=== PATIENT | female | born 1940 | race Caucasian/White ===

== ENCOUNTER → 2018-05-18 10:24 | Outpatient (CLI) | payer MEDICARE, OTHER, SELFPAY ==
[2018-05-18 12:44] LABS: Anion Gap 9 (5-15); BUN 23 mg/dL (7-18); BUN/Creat Ratio 23.7 RATIO (10-20); Calcium,Total 8.7 mg/dL (8.5-10.1); Chloride 98 mmol/L (98-107); Cholesterol 142 mg/dL (200); Creatinine, Serum 0.97 mg/dL (0.55-1.02); EST Glomerular Filtration Rate 59 mL/min (>60); Est Glom Filt Rate - Afr Amer 71 mL/min (>60); Glucose 83 mg/dL (74-106); High Density Lipoprotein 55 mg/dL; Potassium 4.7 mmol/L (3.5-5.1); Sodium Level 134 mmol/L (136-145); Triglycerides 67 mg/dL; Very Low Density Lipoprotein 13 mg/dL (5-40)
== END ==
PROVIDERS: Family Provider Family Medicine; PCP Family Medicine; Visit Provider Family Medicine
DX: I10 Essential (primary) hypertension (principal)
CPT/HCPCS: 36415; 80048; 80061

== ENCOUNTER → 2019-10-13 08:54 | Outpatient (CLI) | payer MEDICARE, OTHER, SELFPAY ==
[2017-06-27 18:35] VITALS: BMI 18.8
[2019-10-13 11:22] LABS: Hemoglobin A1c 5.7 % (4.2-6.3)
[2019-10-13 11:31] LABS: Anion Gap 7 (5-15); BUN 21 mg/dL (7-18); BUN/Creat Ratio 23.2 RATIO (10-20); Calcium,Total 8.3 mg/dL (8.5-10.1); Chloride 105 mmol/L (98-107); Cholesterol 141 mg/dL (200); Creatinine, Serum 0.91 mg/dL (0.55-1.02); EST Glomerular Filtration Rate 63 mL/min (>60); Est Glom Filt Rate - Afr Amer 77 mL/min (>60); Glucose 98 mg/dL (74-106); High Density Lipoprotein 53 mg/dL; Potassium 3.8 mmol/L (3.5-5.1); Sodium Level 139 mmol/L (136-145); Triglycerides 73 mg/dL
[2019-10-13 11:32] LABS: Very Low Density Lipoprotein 15 mg/dL (5-40)
== END ==
PROVIDERS: Family Provider Family Medicine; PCP Family Medicine; Visit Provider Family Medicine
DX: Z00.00 Encounter for general adult medical examination without abnormal findings (principal); I10 Essential (primary) hypertension
CPT/HCPCS: 36415; 80048; 80061; 83036

== ENCOUNTER → 2019-10-17 14:42 | Outpatient (CLI) | payer MEDICARE, OTHER, SELFPAY ==
[2017-06-27 18:35] VITALS: BMI 18.8
--- NOTE | 2019-10-17 14:49 | BI_ITS ---
MAMMOGRAPHY - BILATERAL SCREENING 3-D TOMOSYNTHESIS REASON FOR EXAM: Female, 79 years old. NO FAM HX PT GAINED 10LBS RT AXILLARY LYMPH NODES REMOVED 20-24 YRS AGO PERTINENT HISTORY: No significant family history. TECHNIQUE: 2-D mammograms and 3-D Tomosynthesis of the breast (s) were performed. CAD was performed. COMPARISON: August 31, 2015. FINDINGS: The breast composition is composed of scattered fibroglandular density. Scattered benign calcifications are seen. No dense spiculated masses or suspicious microcalcifications are identified. No architectural distortion is identified. There is no skin thickening or retraction. There are typically benign appearing vascular calcifications. The patient is status post right axillary lymph node dissection/biopsy. Multiple surgical clips are seen in this region without suspicious nodule, mass or pleomorphic calcifications. There has been no significant change since the prior study. BI/SCREEN MAMM (CAD) W/MARCELA BILAT IMPRESSION: No mammographic signs of malignancy. Routine yearly mammograms recommended. ASSESSMENT CATEGORY: BIRADS Category 2: Benign. A letter regarding these results will be sent to the patient by the facility within 30 days. FOLLOW UP RECOMMENDATION: Yearly follow up mammogram recommended. (A) Approximately 10% of breast cancers are not detected by mammography. A normal mammogram should not delay biopsy of a clinically suspicious abnormality. Electronically Signed: Aleksandr Mccauley MD at 9:33 EST , Service support ,
--- NOTE | 2019-10-17 15:09 | BD_ITS ---
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 COMPARISON: None. FINDINGS: Lumbar Spine (L1-L4): g/cm2 (0.977) / T-score (-1.6) / Z-score (0.2) Findings are suggestive of osteopenia with a moderate fracture risk. Left Femur Total: g/cm2 (0.766) / T-score (-1.9) / Z-score (0.1) Left Femoral Neck: g/cm2 (0.716) / T-score (-2.3) / Z-score (-0.1) Right Femur Total: g/cm2 (0.806) / T-score (-1.6) / Z-score (0.4) Right Femoral Neck: g/cm2 (0.786) / T-score (-1.8) / Z-score (0.4) BD/Dexa Bone Density Study IMPRESSION: The patient is considered osteopenic as outlined below according to World Sami Organization (WHO) criteria with a high fracture risk. Reference Information: The T-score is the number of standard deviations above or below the standard which is normal for young adults at their peak bone mineral density. The World Health Organization (WHO) interprets the T-scores as follows: Above -1 Normal bone density Between -1 and -2.5 Osteopenia Equal to / or below -2.5 Osteoporosis As a practical clinical guideline, osteopenia may be graded as follows: Mild -1 through -1.5 Moderate -1.6 through -2.0 Severe -2.1 through -2.4 The Z-score is the number of standard deviations above or below age-matched controls. A Z-score of less than -1.5 would be considered abnormal. References: 1. NIH Osteoporosis and Related Bone Diseases http://www.osteo.org 2. International Society for Clinical Densitometry http://www.iscd.org 3. National Osteoporosis Foundation http://www.nof.org Electronically Signed: Nima Slaughter, at 11:08 EST , Service support ,
== END ==
PROVIDERS: Family Provider Family Medicine; PCP Family Medicine; Referring Provider Family Medicine; Visit Provider Family Medicine
DX: Z12.31 Encounter for screening mammogram for malignant neoplasm of breast (principal); N95.9 Unspecified menopausal and perimenopausal disorder
CPT/HCPCS: 77063; 77067; 77080

== ENCOUNTER → 2020-08-26 11:11 | Outpatient (CLI) | payer MEDICARE, OTHER, SELFPAY ==
[2017-06-27 18:35] VITALS: BMI 18.8
[2020-08-26 15:16] LABS: Absolute Neutrophil Count 4.8 X10^3/uL (2.0-7.7); Basophil# 0.03 X10^3/uL; Basophil% 0.4 % (0-1); Eosinophil# 0.04 X10^3/uL; Eosinophils% 0.5 % (0-5); Hematocrit 38.5 % (37-47); Hemoglobin 12.1 g/dL (12.0-15.0); Lymphocyte % 27.8 % (19-41); Mean Corp Hgb Conc 31.4 g/dL (32-36); Mean Corpuscular Hgb 30.6 pg (27.0-32.0); Mean Corpuscular Volume 97.5 fL (81-99); Mean Platelet Vol. 11.5 fl (6.2-12.0); Monocyte# 0.85 X10^3/uL; Monocyte% 10.8 % (0-10); NRBC Flagged by Analyzer 0 % (0-5); Neutrophil # 4.77 X10^3/uL (2.7-7.7); Neutrophil % 60.4 % (47-70); Platelet Count 233 K/mm3 (150-450); RBC Distribution Width CV 13.3 % (11.6-14.6); RBC Distribution Width SD 47.9 fl (35.1-43.9); Red Blood Count 3.95 M/mm3 (4.2-5.4); White Blood Count 7.9 K/mm3 (4.4-11.0)
[2020-08-26 15:24] LABS: Anion Gap 5 (5-15); BUN 21 mg/dL (7-18); BUN/Creat Ratio 20.6 RATIO (10-20); Calcium,Total 6.8 mg/dL (8.5-10.1); Chloride 107 mmol/L (98-107); Cholesterol 152 mg/dL (200); Creatinine, Serum 1.02 mg/dL (0.55-1.02); EST Glomerular Filtration Rate 55 mL/min (>60); Est Glom Filt Rate - Afr Amer 67 mL/min (>60); Glucose 81 mg/dL (74-106); High Density Lipoprotein 58 mg/dL; Potassium 4.2 mmol/L (3.5-5.1); Sodium Level 141 mmol/L (136-145); Triglycerides 71 mg/dL; Very Low Density Lipoprotein 14 mg/dL (5-40)
== END ==
PROVIDERS: PCP Family Medicine; Referring Provider Family Medicine; Visit Provider Family Medicine
DX: I10 Essential (primary) hypertension (principal); M19.90 Unspecified osteoarthritis, unspecified site
CPT/HCPCS: 36415; 80048; 80061; 85025

== ENCOUNTER → 2020-10-30 16:55 | Outpatient (CLI) | payer MEDICARE, OTHER, SELFPAY ==
[2017-06-27 18:35] VITALS: BMI 18.8
--- NOTE | 2020-10-30 16:58 | RAD_ITS ---
STUDY: X-RAY - RIGHT KNEE REASON FOR EXAM: Right knee pain, no specific injury. TECHNIQUE: 4 view(s) of the knee. COMPARISON: None. FINDINGS: Normal visualized distal femur. Normal visualized proximal tibia and fibula. Normal proximal tibiofibular articulation. There is mild joint space narrowing of the medial femorotibial compartment. Normal lateral femorotibial compartment. Normal patellofemoral articulation. There is vascular calcification. RAD/Knee 4 or More Views IMPRESSION: Mild arthrosis of the medial femorotibial compartment. Electronically Signed: Leno Briones MD at 14:19 EST Tel , Service support ,
== END ==
PROVIDERS: PCP Family Medicine; Referring Provider Family Medicine; Visit Provider Family Medicine
DX: M25.561 Pain in right knee (principal)
CPT/HCPCS: 73564

== ENCOUNTER → 2020-11-27 13:16 | Outpatient (CLI) | payer MEDICARE, OTHER, SELFPAY ==
--- NOTE | 2020-11-27 13:24 | VDLE_ITS ---
Reason For Study: RLE PAIN RIGHT LEFT GSV is normal. CFV is compressible, spontaneous, phasic, CFV is compressible, spontaneous, phasic, competent, and demonstrates normal competent and demonstrates normal augmentation. augmentation. FV is compressible, spontaneous, phasic, competent and demonstrates normal augmentation. POP V is compressible, spontaneous, phasic, competent and demonstrates normal augmentation. T/P Trunk is compressible. PTV is compressible. RT PerV is compressible. Non-vascular structure in right pop fossa space measuring 3.45cm x 2.25cm. Procedure This is a venous duplex using B-mode, color flow and spectral Doppler. Exam performed in department. The exam was diagnostic. A preliminary report was called and/or faxed to Dr. Becerra @ [phone] @ 1:40 pm. Interpretation Summary Deep veins of the right lower extremity are patent and compressible segmentally. There is no evidence of right lower extremity deep vein thrombosis. Valvular competence appears intact within the proximal deep venous system on the right . The right great saphenous vein appears patent and compressible segmentally. A non-vascular structure is noted in the right popliteal space, measuring 3.45 cm x 2.25 cm. This probably represents a popliteal cyst. Clinical correlation is advised. Ordering Physician: Cleveland Becerra Referring Physician: Cleveland Becerra Performed By: France King, GRETTA, RVT
== END ==
PROVIDERS: PCP Family Medicine; Referring Provider Family Medicine; Visit Provider Family Medicine
DX: M79.661 Pain in right lower leg (principal)
CPT/HCPCS: 93971

== ENCOUNTER → 2021-07-11 | Outpatient (CLI) | payer MEDICARE, OTHER, SELFPAY | END | disposition home or self-care (01) | LOC: LABSPEC 15:20 | PROVIDERS: PCP Family Medicine; Referring Provider Family Medicine; Visit Provider Family Medicine | DX: N39.0 Urinary tract infection, site not specified (principal) | CPT/HCPCS: 87086; 87088; 87186 ==

== ENCOUNTER → 2021-08-01 15:00 | Outpatient (CLI) | payer MEDICARE, OTHER, SELFPAY ==
[2021-08-01 17:20] LABS: Absolute Lymphocyte Count 2.62 X10^3/uL (0.83-4.51); Absolute Neutrophil Count 4.5 X10^3/uL (2.0-7.7); Basophil# 0.03 X10^3/uL; Basophil% 0.4 % (0-1); Eosinophil# 0.05 X10^3/uL; Eosinophils% 0.6 % (0-5); Hematocrit 39.5 % (37-47); Hemoglobin 12.6 g/dL (12.0-15.0); Lymphocyte # 2.62 X10^3/ul (0.83-4.51); Lymphocyte % 33.2 % (19-41); Mean Corp Hgb Conc 31.9 g/dL (32-36); Mean Corpuscular Hgb 29.9 pg (27.0-32.0); Mean Corpuscular Volume 93.8 fL (81-99); Monocyte# 0.71 X10^3/uL; NRBC Flagged by Analyzer 0 % (0-5); Neutrophil # 4.46 X10^3/uL (2.7-7.7); Neutrophil % 56.5 % (47-70); Platelet Count 259 K/mm3 (150-450); RBC Distribution Width CV 13.2 % (11.6-14.6); RBC Distribution Width SD 45.3 fl (35.1-43.9); Red Blood Count 4.21 M/mm3 (4.2-5.4); White Blood Count 7.9 K/mm3 (4.4-11.0)
[2021-08-01 17:35] LABS: Anion Gap 8 (5-15); BUN 20 mg/dL (7-18); Calcium,Total 8.1 mg/dL (8.5-10.1); Chloride 98 mmol/L (98-107); Creatinine, Serum 1.11 mg/dL (0.55-1.02); EST Glomerular Filtration Rate 50 mL/min (>60); Est Glom Filt Rate - Afr Amer 61 mL/min (>60); Glucose 107 mg/dL (74-106); Potassium 4.3 mmol/L (3.5-5.1); Sodium Level 132 mmol/L (136-145)
== END ==
PROVIDERS: PCP Family Medicine; Referring Provider Family Medicine; Visit Provider Family Medicine
DX: Z01.818 Encounter for other preprocedural examination (principal)
CPT/HCPCS: 36415; 80048; 85025

== ENCOUNTER → 2021-08-19 07:12 | Outpatient (CLI) | payer MEDICARE, OTHER, SELFPAY ==
--- NOTE | 2021-08-19 07:19 | CT_ITS ---
STUDY: CT RIGHT LOWER EXTREMITY WITHOUT CONTRAST REASON FOR EXAM: Right knee osteoarthritis, surgical planning. TECHNIQUE: Transaxial CT imaging of the lower extremity was performed. Coronal and sagittal images were reformatted. Individualized dose optimization techniques were used for this CT. COMPARISON: None. FINDINGS: Knee: There are marginal osteophytes, mild subchondral cystic change of the medial tibial plateau and joint space narrowing of the medial femorotibial compartment (coronal reconstruction 26). There is a subchondral insufficiency fracture of the right medial femoral condyle (sagittal reconstructions 43-47). Normal lateral femoral condyle and lateral tibial plateau. There is preservation of the articular joint space of the lateral knee compartment. There is mild joint space narrowing of the lateral aspect of the patellofemoral compartment and subchondral cystic change of the lateral femoral trochlea (sagittal reconstruction 31). Normal proximal tibiofibular articulation. There is a small joint effusion. The quadriceps tendon is grossly normal. The patellar tendon is grossly normal. Normal Hoffa''s fat pad. There is a popliteal cyst containing small intra-articular bodies (sagittal reconstructions 41-44). There is vascular calcification. Hip: There is avascular necrosis of the right femoral head without demonstrated subchondral collapse (coronal reconstructions 57-63). Ankle: There is joint space narrowing of the talonavicular articulation (sagittal reconstruction 27). Normal tibiotalar, posterior subtalar and calcaneocuboid articulations. CT/Extremity Lower without Contra IMPRESSION: Right knee osteoarthritis with subchondral insufficiency fracture of the medial femoral condyle. Avascular necrosis of the right femoral head. Electronically Signed: Leno Briones MD at 14:46 EDT Tel , Service support ,
== END ==
PROVIDERS: PCP Family Medicine; Referring Provider Orthopaedic Surgery; Visit Provider Orthopaedic Surgery
DX: M21.161 Varus deformity, not elsewhere classified, right knee (principal); M17.11 Unilateral primary osteoarthritis, right knee
CPT/HCPCS: 73700

== ENCOUNTER 2021-09-01 12:17 | Observation (INO) | payer MEDICARE, OTHER, SELFPAY ==
[2021-08-19 08:19] LABS: International Normalized Ratio 1.1; Prothrombin Time (Protime)PT. 13.4 SECONDS (11.7-14.9)
[2021-08-19 08:20] LABS: Partial Thromboplast Time 31.4 Seconds (24.1-36.2)
[2021-08-19 08:34] LABS: AST(SGOT) 25 U/L (15-37); Alanine Aminotransfer ALT/SGPT 22 U/L (13-56); Albumin, Serum 3.4 g/dL (3.2-5.0); Alkaline Phosphatase 73 U/L (45-117); Bilirubin, Direct 0.19 mg/dL (0.00-0.30); Globulin 4.3 g/dL (2.2-4.2); Protein, Total 7.7 g/dL (6.4-8.2)
[2021-09-01] VITALS (14 sets, daily range): BP systolic 122–170; BP diastolic 53–89; PULSE 61–75; RESP 16–18; TEMP 36.2–36.6; O2SAT 95–100; BMI 26.9
[2021-09-01 08:50] LABS: Bedside Glucose 109 mg/dL (70-110)
[2021-09-01] MEDS: Gabapentin 600 MG Tablet PO (09:28)
[2021-09-01] MEDS: Acetaminophen 500 MG Tablet 1000 MG PO ×2 (09:28→17:01)
[2021-09-01] MEDS: Lactated Ringers 1,000 ML 15 ML IV (09:31)
--- NOTE | 2021-09-01 10:08 | RAD_ITS ---
STUDY: X-RAY - RIGHT KNEE REASON FOR EXAM: Female, 81 years old. Post op -- AP and Lateral xray of operative knee in PACU TECHNIQUE: 2 view(s) of the knee. COMPARISON: Comparison is made with prior study of 10/30/2020. FINDINGS: Normal visualized distal femur. Normal visualized proximal tibia and fibula. Normal proximal tibiofibular articulation. The patient is status post total knee replacement. There is good alignment. Postoperative soft tissue changes. RAD/Knee 1 or 2 Views IMPRESSION: Status post right total knee replacement. There is good alignment. Postoperative soft tissue changes. Electronically Signed: Nima Slaughter MD at 13:25 EST , Service support ,
[2021-09-01] MEDS: Joint Pain Solution (NO MORPHINE) 1 ML IV (10:30)
--- NOTE | 2021-09-01 10:30 | KNEE_PTH ---
PATIENT: AKIL KENNEY LOC: MS2 U#:[id number] AGE/SX: 81/F ROOM: MS206 RE09/01/[address]: Dr. Chidi Kam DO : 1940 BED: 1 DIS: 09/02/2021 SPEC #: [id number] RECD: 09/01/21 14:13 STATUS: GULSHAN RERegis #: [id number] CARISA: 09/01/21 10:[address]: Chidi Kam DEPT: SURGICAL PATHOLOGY RECD BY: Moriah Clark ENTERED: 09/02/21 07:38 SP TYPE: TOTAL KNEE OTHR DR: MD Dr. Cleveland Downs MD Tissues: Knee, NOS Procedures: Decalcification bone/plaque Surgery Specimen Level IV HEADER OPERATION: ERAS, right total knee replacement robotic arm assist PRE-OP DIAGNOSIS: Varus deformity right knee, other deformity of patella right knee TISSUE SUBMITTED: Bone and soft tissue right knee MICROSCOPIC DIAGNOSIS Bone and tissue of right knee, total knee resection: Degenerative joint disease. AM:jai 09/05/2021 MICROSCOPIC DESCRIPTION Slides are reviewed. GROSS DESCRIPTION Received is one container designated bone and soft tissue right knee. The specimen consists of multiple fragments of kendrick-yellow bone measuring in aggregate 9 x 7 x 3 cm. A small piece of cartilaginous tissue is noted attached to one piece of bone measuring 3.5 x 0.5 x 0.2 cm. A number of bony fragments contain articular surfaces consistent with tibial plateau and femoral condyle and displaying prominent osteophyte formation, eburnation, and bone erosion. Sprayer Machine sections are submitted in two cassettes as follows: 1 ? cartilaginous tissue, 2 - bone after decalcification. / SJ:jai 09/02/21 TC:5 [facility]: [id number]
[2021-09-01] MEDS: Cefazolin 2 GM in 0.9% Normal Saline 100 ML IV (10:38)
[2021-09-01] MEDS: Betamethasone/Betamethasone 30 MG/5 ML Vial (11:07)
[2021-09-01] MEDS: Lidocaine 1% (20 ml mdv) 20 ML Vial (11:08)
--- NOTE | 2021-09-01 12:02 | PCM.OPRPT ---
Report of Operation Date of Procedure: 09/01/21 Pre-Operative Diagnosis: OA right knee Post-Operative Diagnosis: same Surgery/Procedure Performed:: Right TKR Description of Surgical Findings:: Report of Operation Date of Procedure: 09/01/21 Preoperative Diagnosis: [right ] knee primary osteoarthritis Postoperative Diagnosis: [right ] knee primary osteoarthritis Operation: Robotic Assisted Knee Total Arthroplasty, [ right ] knee Surgeon: Dr Chidi Kam DO Drill Instructor: Bhanu Bledsoe PA-C Anesthesia: spinal Anesthesiologist: Balbir Sellers M.D. Findings: Stable knee with good patella tracking Specimen(s): Bony cuts Complications: No intraoperative complications Estimated Blood Loss: 20 cc IV Fluids: 1000 cc crystalloid Implants Used: 1. Gage Triathlon cemented CR size 2 femur 2. Gage Triathlon size 2 tibia 3. 29 mm patella 4. 9 mm CS polyethylene Brief History Operative Indications: [ (81 y/o female) ] with history of [right ] knee osteoarthrosis with radiographic findings with loss of joint space, osteophyte formation and subchondral sclerosis. Failed conservative measures as mentioned in the H&P. Discussion of total knee arthroplasty as well as risk and benefits were discussed with the patient including but not limited to blood loss, DVTs, PEs, neurovascular damage, general risk of anesthesia including loss of life, and stiffness or instability were also discussed with the patient. Patient demonstrated understanding and was able to sign informed consent. Procedure: On the date of procedure, patient's [ right ] lower extremity was marked in the preoperative area. The patient was then taken back to the operating room where that patient was placed on the table in the supine position. All bony prominences were identified and well-padded. Anesthesia assumed control of the C-spine and airway throughout the remainder of the procedure. A tourniquet was placed on the [right ] upper thigh and the leg was prepped in a sterile fashion. The surgeon then scrubbed at this time. Upon reentering the room, the [ right ] lower extremity was draped in a standard orthopedic fashion. A timeout was then called and everyone agreed upon the side, the site, the procedure to be performed, patient's identity and antibiotics given. Esmarch bandage was used to exsanguinate the extremity and the tourniquet was placed up to 250 mmHg with the knee in flexion. A midline skin incision was made and a sharp dissection was taken down through skin, subcutaneous tissue and fat. The standard medial parapatellar incision was made and the patella was subluxed laterally. An appropriate deep MCL release was done and the fat pad was resected. Our attention was then directed to the patella. The patella was everted and a flat resection was made. The knee was then flexed up and 2 femoral pins were placed inside the incision and 2 tibial pins were placed outside the incision in the medial tibia bicortically. Once this was completed, the 2 checkpoints in the femur and tibia were placed. Knee was then flexed up and the bony landmarks were registered. Once the was completed, the knee taken through range of motion and manually stressed allowing us to plan for an appropriate tibial cut. The robotic arm was brought into the field sterilely and checkpoint and saw were registered. Based on the patient's deformity, the tibial cut was made in [ 2 degrees varus ]. At this time, the tensioner was then placed in the joint and ligament tension was checked at 90 degrees and full extension. Based on the patient's ligamentous tension, appropriate adjustments were made to the operative plan and ligament releases were done. Once we were happy with our operative plan with balanced flexion and extension gaps, our attention was directed to the femur. The robot was brought into the field sterilely and registered. Posterior condylar cuts, anterior chamfer cuts and anterior cuts were appropriately made for a [size 2 ] femur. When these were completed, the saws were switched out in the distal femoral and posterior chamfer cuts were made. Protecting the soft tissue throughout this time. A [size 2 ] base plate was selected. The knee was flexed to 90 degrees and soft tissues and posterior osteophytes were removed from the joint. 40 cc of the periarticular injection was injected into the posterior medial corner of the joint. The appropriate trials were then placed on the femur and tibia. A trial polyethylene was trialed to ensure proper balancing and stability of the knee. The appropriate tibial internal rotation was then marked with a bovie. Our attention was then directed to the patella. The lug holes were drilled and the patella trial was placed. Patellar tracking was checked and deemed appropriate. Once we were happy, lug holes were drilled for the femur and trial components were removed. The tibia was subluxed and pinned into place and the keel was punched and drilled appropriately. Final components were verified and opened. The wound was copiously irrigated with normal saline. Cement was mixed under 3rd generation techniques and the applied in sequence to the tibia, femur and patella. The components were impacted into place with the tibia, femur and finally the patella. The trial poly component was placed and the knee was placed in full extension. Excess cement was removed with curettes and the cement was allowed to harden. The tracking, alignment and balance were verified and a [9 mm CS ] polyethylene component was placed. Once the final components were placed an Irrisept lavage was performed and the wound was copiously irrigated with normal saline solution and the periarticular injection was given. the wound was closed in a layer-carpenter fashion using #1 vicryl interrupted sutures for the arthrotomy, 2-0 interrupted vicryl suture for the subcuticular layer and deo for final skin closure. A sterile compressive dressing was then placed. Under sterile conditions, the left knee was injected with 4 cc of 1 % Lidocaine and 2 cc of Celestone Soluspan. The patient was then awakened from anesthesia, transferred to the [facility] and transferred to the PACU for recovery. My physician miller head assistant wet process was a vital part of this case. He was important in appropriate retraction during the case, and protection of soft tissues during bony cuts. His intimate knowledge of the case and my steps aided in safe and expedient completion of the procedure as well as appropriate position of the leg during the case. He was also vital in assisting with closure under my direct supervision. Due to the complexity of this case, robotic arm was used to assist in the surgery to improve accuracy and clinical outcomes. Post-op Plan: DVT ppx; ASA 81 mg BID, thigh high compression stockings Follow up: in office in 2 weeks for wound check PT: to start POD #0 at hospital, outpatient PT should be arranged. Preoperative antibiotic: Ancef 2 grams IV Chidi Kam DO Surgeon: Chidi Kam adoption manager: Bhanu Bledsoe Type of Anesthesia: Spinal Anesthesiologist: Balbir Sellers Estimated Blood Loss (mL): 20 cc Fluids Replaced: 1000 cc crystalloid Admit VTE Documentation VTE Present on Admission: No VTE Mechan Device Prophylaxis: SCD's and Thigh High PARISH Hose VTE Pharm Prophylaxis ordered?: Yes
[2021-09-01] MEDS: Lactated Ringers 1,000 ML 125 ML IV ×2 (13:05→17:20)
[2021-09-01] MEDS: Ketorolac 15 MG/ML Vial IV (17:18)
[2021-09-01] MEDS: Aspirin 81 MG TAB.CHEW PO (22:42)
[2021-09-01] MEDS: Senna/Docusate Sodium 1 Tablet 2 TABLET PO (22:42)
[2021-09-01] MEDS: clonazePAM 0.5 MG Tablet PO (22:42)
[2021-09-02] MEDS: Zolpidem Tartrate 5 MG Tablet PO (00:04)
[2021-09-02] MEDS: Mirtazapine 15 MG Tablet PO (00:04)
[2021-09-02] MEDS: Acetaminophen 500 MG Tablet 1000 MG PO ×2 (00:42→09:32)
--- NOTE | 2021-09-02 01:01 | PCS.PANDOC ---
PANDEMIC DOCUMENTATION INITIATED: Date: 09/01/2021 Time: 190
[2021-09-02 06:18] VITALS: BP 167/61; PULSE 62; RESP 18; TEMP 36.6; O2SAT 96
[2021-09-02] MEDS: oxyCODONE 5 MG Tablet 2.5 MG PO (06:19)
[2021-09-02 06:40] VITALS: O2SAT 94
[2021-09-02 07:16] LABS: Hematocrit 33.6 % (37-47); Hemoglobin 11.3 g/dL (12.0-15.0); Mean Corp Hgb Conc 33.6 g/dL (32-36); Mean Corpuscular Volume 92.1 fL (81-99); Mean Platelet Vol. 10.8 fl (6.2-12.0); Platelet Count 254 K/mm3 (150-450); RBC Distribution Width CV 13.5 % (11.6-14.6); RBC Distribution Width SD 45.8 fl (35.1-43.9); Red Blood Count 3.65 M/mm3 (4.2-5.4); White Blood Count 13.7 K/mm3 (4.4-11.0)
--- NOTE | 2021-09-02 07:46 | PCM.PN.ORT ---
Subjective Subjective Patient laying in bed sleeping. Patient easy to wake. Patient states her pain is been very well managed. Patient has no other complaints at this time. Patient states she is request to go to TCU for her postop rehab. patient denies chest pain, shortness of breath, calf pain, nausea vomiting. Objective Data Objective Data Vital Signs: Vital Signs Temp Pulse Resp BP Pulse Ox 97.9 F 62 18 167/61 H 94 09/02/21 06:18 09/02/21 06:18 09/02/21 06:18 09/02/21 06:18 09/02/21 06:40 Oxygen Flow Rate (L/min) 2 Oxygen Delivery Method Room Air Weight: 71.1 kg Body Mass Index (BMI) 26.9 Intake & Output: Intake and Output for Last 24 Hours 08/31/21 09/01/21 09/02/21 23:59 23:59 23:59 Intake Total 1184.5 / 1184.5 2082. / 2082.25 Output Total 700 / 700 Balance 484.5 / 484.5 2082. / 2082.25 Lab / Micro Data Result Diagrams: 09/02/21 06:56 09/02/21 06:56 Labs: Laboratory Results - last 24 hr 09/01/21 08:44: POC Glucose 109 09/02/21 06:56: WBC 13.7 H, RBC 3.65 L, Hgb 11.3 L, Hct 33.6 L, MCV 92.1, MCH 31.0, MCHC 33.6, RDW Std Deviation 45.8 H, RDW Coeff of Sally 13.5, Plt Count 254, MPV 10.8 Micro: Microbiology 08/19/21 07:15 Swab (Method) Nasal Screen MRSA/MSSA - Final Radiography Diagnostic Testing: Radiology Impression Knee X-Ray 09/01/21 10:08 IMPRESSION: Status post right total knee replacement. There is good alignment. Postoperative soft tissue changes. Electronically Signed: Nima Slaughter MD at 13:25 EST , Service support , Physical Exam Narrative Patient laying comfortably in bed sleeping. Patient was easy to awake and alert and appropriate. Patient no respiratory distress, speaking in full sentences. Patient had no calf tenderness. No signs of symptoms of DVT. Patient vital signs and labs reviewed noted. Patient's dressing is clean dry intact. Neurovascular she is otherwise intact. Const alert and oriented x3 Eyes PERRL Neuro CN's II-XII intact bilaterally Psych mental status grossly normal and affect normal Assessment & Plan Assessment/Plan (1) Status post total right knee replacement using cement: PLAN: 1. Continue all pain medications as prescribed 2. 81 mg aspirin 1 p.o. every 12 hours x30 days for postop DVT prophylaxis 3. Physical therapy, weight-bear as tolerated with walker 4. Encourage incentive spirometry 5. Patient to TCU when cleared by insurance 6. Continue standard postop total knee arthroplasty protocol
[2021-09-02 08:06] LABS: Anion Gap 7 (5-15); BUN 13 mg/dL (7-18); BUN/Creat Ratio 22.6 RATIO (10-20); Chloride 104 mmol/L (98-107); Creatinine, Serum 0.57 mg/dL (0.55-1.02); EST Glomerular Filtration Rate 107 mL/min (>60); Est Glom Filt Rate - Afr Amer 129 mL/min (>60); Estimated Creatinine Clearance 37.45 ml/min; Glucose 152 mg/dL (74-106); Potassium 3.8 mmol/L (3.5-5.1); Sodium Level 135 mmol/L (136-145)
[2021-09-02] MEDS: Senna/Docusate Sodium 1 Tablet 2 TABLET PO (09:30)
[2021-09-02] MEDS: Citalopram 10 MG Tablet PO (09:32)
[2021-09-02] MEDS: Clopidogrel Bisulfate 75 MG Tablet PO (09:33)
[2021-09-02] MEDS: Pantoprazole Sodium 20 MG Tablet PO (09:33)
[2021-09-02] MEDS: Aspirin 81 MG TAB.CHEW PO (09:33)
[2021-09-02] MEDS: clonazePAM 0.5 MG Tablet PO (09:36)
[2021-09-02 09:40] VITALS: BP 153/55; PULSE 64; RESP 18; TEMP 36.6; O2SAT 96
--- NOTE | 2021-09-02 09:40 | CASEMGMT ---
RN DIONNE RESEARCH PROGRAM ASSISTANT CM to room to meet with patient for initial transition planning/care coordination assessment. RN DIONNE introduced self and role at [facility]. Pt voices understanding and consents to assessment at this time. Pt resting in bed in no distress at this time. Pt is A/O at this time and answers all questions appropriately. Care providers, pharmacy, and demographics verified/updated at this time. PCP: Dr Becerra Specialists:Dr Kam Preferred Pharmacy:[facility] Insurance: KELLY [employer] Prescription Benefit: Yes Living Will/HPOA: Has LW and HPOA, who is her daughters Lucero Layne and Angela Baig LNOK: 4 adult children. Dtr's Angela and Lucero are POA Living Arrangements: Lives alone in [facility]. Dtr and son-in-law, Angela and Gianna Baig are POA. Transportation: Pt, family HHC/SNF: Pt states would like to go to TCU. She was provided with list of SNF providers including quality and resource use data and consistent with the patient's preferred geographic region, medical needs, and insurance network. The pt's states still prefers TCU. EDUARDO, Suzanne, aware. PLAN: TCU Luciano MCCARTHY RN, CM
--- NOTE | 2021-09-02 10:12 | CASEMGMT ---
Addendum entered by Suzanne Wu 09/02/21 10:30: SW spoke w/Steve Bledsoe, pt will be ready for discharge today, he is to complete the necessary paperwork in order for pt to be discharged to TCU today. LUCÍA Lewis Original Note: TCU will have a bed for pt today. ALICE LewisS
--- NOTE | 2021-09-02 10:18 | NURSING ---
Pt states she did not think the doctor did not want her to have plavix. Steve Felicia informed and said to go ahead and give plavix.
--- NOTE | 2021-09-02 12:23 | CASEMGMT ---
Addendum entered by Suzanne Wu 09/02/21 15:02: COVID results back, pt is negative. LUCÍA Lewis Original Note: All discharge paperwork has been faxed to TCU in anticipation of pt going to TCU today. SW spoke w/daughter and pt in room, let them know pt should be able to go to TCU today, once the COVID results are back. Plan: TCU, Skilled level of care, Convalescent stay LUCÍA Lewis
[2021-09-02 15:12] VITALS: BP 146/51; PULSE 56; RESP 16; TEMP 36.4; O2SAT 99
== END 2021-09-02 15:15 | disposition skilled nursing facility (03) ==
LOC: SDC 09-02 08:30 → MS2 09-02 08:30
PROVIDERS: Anesthesiology; Admitting Provider Orthopaedic Surgery; PCP Family Medicine; Referring Provider Orthopaedic Surgery; Visit Provider Orthopaedic Surgery
PROC: 0SRC0JZ Replacement of Right Knee Joint with Synthetic Substitute, Open Approach (ICD-10-PCS; CPT 27447; principal; 2021-09-01 10:00)
DX: M17.11 Unilateral primary osteoarthritis, right knee (principal); F32.A Depression, unspecified; M32.9 Systemic lupus erythematosus, unspecified; M21.161 Varus deformity, not elsewhere classified, right knee; M22.8X1 Other disorders of patella, right knee; E66.9 Obesity, unspecified; Z79.899 Other long term (current) drug therapy; Z79.02 Long term (current) use of antithrombotics/antiplatelets; Z86.718 Personal history of other venous thrombosis and embolism; Z68.27 Body mass index [BMI] 27.0-27.9, adult
CPT/HCPCS: 01402; 27447; 64447; S2900; 36415; 73560; 80048; 80076; 82962; 85027; 85610; 85730; 87081; 87426; 88305; 88311; 96361; 96374; 97110; 97162; 97166; 97530; 99218; 99251; C1776; J7120; G0378; G0463; J0702; J2405

== ENCOUNTER 2021-09-02 15:40 | Inpatient (IN) | payer MEDICARE, OTHER, SELFPAY ==
[2021-09-02 16:00] VITALS: BP 146/55; PULSE 60; RESP 16; TEMP 36.9; O2SAT 98
[2021-09-02 16:02] VITALS: BP 146/55; PULSE 60; RESP 16; TEMP 36.9; O2SAT 98
[2021-09-02 16:03] VITALS: BMI 25.7
[2021-09-02] MEDS: Aspirin 81 MG TAB.CHEW PO (18:01)
[2021-09-02] MEDS: clonazePAM 0.5 MG Tablet PO (18:01)
[2021-09-02 18:04] VITALS: PULSE 60; RESP 16; O2SAT 98
--- NOTE | 2021-09-02 19:59 | HP.PCM_ITS ---
HPI - General General Date of Admission: 09/02/21 HPI Narrative 09/01/2021 AKIL KENNEY, is a 81 Female who presents with followin09/01/2021 Dr. Kam performed robot assisted right total knee arthroplasty. 09/02/2021 Pain controlled. Aspirin 81mg twice daily x 30 days for DVT prophylaxis. 09/02/2021 Admit to TCU with debility, here for rehabilitation, strengthening, prior to discharge home alone. [facility] Medical History (Updated 09/02/21 @ 20:[address] Nicolas Bajwa MD) Ambulates with cane Depression Gastric reflux History of echocardiogram History of rectocele History of stress test Lupus Non-smoker Wears dentures Wears glasses Wears hearing aid Home Medications citalopram 10 mg PO DAILY 06/04/17 [History Last Taken Unknown] clonazepam 0.5 mg PO BID 06/04/17 [History Last Taken Unknown] clopidogrel 75 mg PO DAILY 06/04/17 [History Last Taken Unknown] fluticasone propionate [Allergy Relief (fluticasone)] 2 spray NS BID 06/04/17 [History Last Taken Unknown] hydroxychloroquine 300 mg PO DAILYCM 06/04/17 [History Last Taken Unknown] mirtazapine [Remeron SolTab] 15 mg PO QHS 06/04/17 [History Last Taken Unknown] Acidophilus 1 ea PO BID 06/27/17 [History Last Taken Unknown] acetaminophen [Tylenol Extra Strength] 1,000 mg PO Q8H PRN PRN 06/27/17 [History Last Taken Unknown] omeprazole 20 mg PO DAILY 06/27/17 [History Last Taken Unknown] zolpidem 5 mg PO QHS 06/27/17 [History Last Taken Unknown] aspirin 81 mg PO BID 09/02/21 [History Last Taken Unknown] oxycodone 2.5 mg PO Q4H PRN PRN 7 Days #42 tab 09/02/21 [Rx Last Taken Unknown] Allergy/AdvReac Type Severity Reaction Status Date / Time codeine AdvReac Other Verified 09/01/21 09:21 morphine AdvReac Other Verified 09/01/21 09:21 Surgical History (Updated 09/02/21 @ 20:[address] Nicolas Bajwa MD) History of cholecystectomy History of colonoscopy History of coronary artery stent placement History of hysterectomy History of splenectomy Social History (Updated 09/02/21 @ 20:[address] Nicolas Bajwa MD) household members: none Smoking Status: Never smoker alcohol intake: never substance use type: does not use ROS Constitutional Constitutional: Denies chills, fever(s) or weight gain ENT HEENT: Denies headache(s), nasal congestion or nasal discharge Cardiovascular Cardiovascular: Denies chest pain or palpitations Respiratory/Chest Respiratory/Chest: Denies cough, excessive phlegm production or shortness of breath with exertion Gastrointestinal Gastrointestinal: Denies abdominal pain, nausea or vomiting Genitourinary Genitourinary: Denies dysuria Musculoskeletal Musculoskeletal: Denies joint pain or joint swelling Integumentary Integumentary: Denies rash or wounds Neurologic Neurologic: Denies focal weakness, numbness or tingling Psychiatric Psychiatric: Denies anxiety, depression, homicidal ideation or suicidal ideation Vital Signs Vital Signs Vital Signs: 09/02/21 16:00 09/02/21 16:02 09/02/21 18:04 Temperature 98.5 F 98.5 F Temperature Source Temporal Temporal Pulse Rate 60 60 60 Pulse Rhythm Regular Pulse Strength Normal (2+) Respiratory Rate 16 16 16 Respiratory Effort Normal Non-Labored Respiratory Depth Normal Respiratory Pattern Normal Blood Pressure 146/55 H 146/55 H Blood Pressure Mean 85 85 Blood Pressure Source Monitor Monitor Blood Pressure Position Sitting Semi-Fowlers Blood Pressure Location Right Arm Right Arm Pulse Ox 98 98 98 Oxygen Delivery Method Room Air Room Air Room Air Weight Weight: 68.039 kg Body Mass Index (BMI) 25.7 Physical Exam Const alert and oriented x3 General Appearance: cooperative HEENT normocephalic Eyes PERRL and EOMs intact bilaterally Neck supple, no JVD and no carotid bruits Resp normal respiratory effort, normal air movement and clear to auscultation bilaterally Cardio regular rate and regular rhythm GI normal to inspection, nondistended, normoactive bowel sounds, non-tender and non-distended Extremity normal capillary refill General Extremity: Negative for edema Skin no rashes or lesions noted General Skin Exam: no breakdown Psych affect normal Appearance: appropriate Assessment & Plan Assessment/Plan (1) Debility: (2) Status post total right knee replacement using cement: (3) Anxiety: (4) Depression: (5) Gastroesophageal reflux disease: (6) Insomnia: (7) Systemic lupus erythematosus: (8) Coronary artery disease: PLAN: 81 year old female with below past medical history hospitalized for right total knee replacement 09/01/[address] Kam, admitted to TCU with debility, here for rehabilitation, strengthening, prior to discharge home alone. * Debility - PT/OT. * Pain - Tylenol 1000mg q6h prn pain (1-3), Oxycodone 2.5mg q4h prn pain (4-10). * Bowel - Miralax 17gm daily, Senna/colace 1 tablet twice daily, Dulcolax 10mg daily prn. * Adult immunization - Administer prevnar 13, pneumovax 23, fluzone, covid19 vaccine as appropriate. * DVT prophylaxis - Aspirin 81mg twice daily thru 10/01/2021. * Coronary artery disease - Plavix 75mg daily, Aspirin 81mg daily starting 10/02/2021. * Depression - Citalopram 10mg daily, stable chronic intermediate use, GDR not recommended. * Anxiety - Clonazepam 0.5mg twice daily, stable chronic intermodal customer service use, GDR not recommended. * Allergic rhinitis - Flonase 2 sprays nasal daily. * Systemic lupus - Plaquenil 300mg daily. * GI prophyalxis - Lactobacillus 1 tablet twice daily. * Appetite loss - Mirtazapine 15mg qhs, stable chronic intermediate use, GDR not recommended. * GERD - Pantoprazole 20mg daily. * Insomnia - Zolpidem 5mg qhs, stable chronic intermodal customer service use, GDR not recommended.
[2021-09-02] MEDS: oxyCODONE 5 MG Tablet 2.5 MG PO (20:13)
[2021-09-02] MEDS: Acetaminophen 500 MG Tablet 1000 MG PO (22:17)
[2021-09-02] MEDS: Zolpidem Tartrate 5 MG Tablet PO (22:17)
[2021-09-02] MEDS: Mirtazapine 15 MG Tablet PO (22:17)
[2021-09-02] MEDS: Senna/Docusate Sodium 1 Tablet PO (22:18)
[2021-09-03] MEDS: oxyCODONE 5 MG Tablet 2.5 MG PO ×2 (00:57→05:16)
[2021-09-03] MEDS: clonazePAM 0.5 MG Tablet PO ×2 (05:16→16:57)
[2021-09-03] MEDS: Senna/Docusate Sodium 1 Tablet PO ×2 (05:17→16:51)
[2021-09-03] MEDS: Citalopram 10 MG Tablet PO (05:17)
[2021-09-03] MEDS: Polyethylene Glycol 3350 17 GM PACKET PO (05:17)
[2021-09-03] MEDS: Clopidogrel Bisulfate 75 MG Tablet PO (05:17)
[2021-09-03] MEDS: Pantoprazole Sodium 20 MG Tablet PO (05:17)
[2021-09-03] MEDS: Fluticasone 0.05% 1 SPRAY NASAL.SRY 2 SPRAY NASAL (05:19)
[2021-09-03 06:05] LABS: Absolute Lymphocyte Count 1.89 X10^3/uL (0.83-4.51); Absolute Neutrophil Count 11.3 X10^3/uL (2.0-7.7); Basophil# 0.01 X10^3/uL; Basophil% 0.1 % (0-1); Hematocrit 30.2 % (37-47); Hemoglobin 10.1 g/dL (12.0-15.0); Lymphocyte # 1.89 X10^3/ul (0.83-4.51); Lymphocyte % 12.5 % (19-41); Mean Corp Hgb Conc 33.4 g/dL (32-36); Mean Corpuscular Hgb 30.2 pg (27.0-32.0); Mean Corpuscular Volume 90.4 fL (81-99); Mean Platelet Vol. 11.1 fl (6.2-12.0); Monocyte# 1.83 X10^3/uL; Monocyte% 12.1 % (0-10); NRBC Flagged by Analyzer 0 % (0-5); Neutrophil # 11.33 X10^3/uL (2.7-7.7); POSITIVE DIFFERENTIAL YES; Platelet Count 221 K/mm3 (150-450); RBC Distribution Width CV 13.4 % (11.6-14.6); RBC Distribution Width SD 44.8 fl (35.1-43.9); Red Blood Count 3.34 M/mm3 (4.2-5.4); White Blood Count 15.1 K/mm3 (4.4-11.0)
[2021-09-03 06:21] LABS: Differential Indicated SCAN CRITERIA MET
[2021-09-03 06:40] LABS: Anion Gap 8 (5-15); BUN 25 mg/dL (7-18); BUN/Creat Ratio 38.3 RATIO (10-20); Calcium,Total 6.8 mg/dL (8.5-10.1); Chloride 96 mmol/L (98-107); Creatinine, Serum 0.65 mg/dL (0.55-1.02); EST Glomerular Filtration Rate 92 mL/min (>60); Est Glom Filt Rate - Afr Amer 112 mL/min (>60); Estimated Creatinine Clearance 37.45 ml/min; Glucose 131 mg/dL (74-106); Potassium 4.2 mmol/L (3.5-5.1); Sodium Level 127 mmol/L (136-145)
[2021-09-03 06:52] LABS: Differential Comment SCANNED
[2021-09-03] MEDS: Aspirin 81 MG TAB.CHEW PO ×2 (07:58→16:51)
[2021-09-03] MEDS: Hydroxychloroquine 200 MG Tablet 300 MG PO (07:59)
[2021-09-03] MEDS: oxyCODONE 5 MG Tablet PO ×3 (10:46→22:06)
[2021-09-03] MEDS: Acetaminophen 500 MG Tablet 1000 MG PO (10:46)
[2021-09-03] MEDS: Tuberculin,Purif.prot.deriv. 50 TU/ML Vial 0.1 ML ID (10:48)
--- NOTE | 2021-09-03 11:04 | NURSING ---
Painful with Rt knee. Polar care in place. Medicated with tylenol and Oxyir. Surgical mepilex peeled back at this time and incision noted to be well approximated. Small amount of bleeding noted in some areas. No redness or warmth. Swollen and bruising noted. Will continue to monitor.
[2021-09-03 14:15] LABS: Pathologist Review Reviewed
--- NOTE | 2021-09-03 14:42 | PHA.CONS_ITS ---
Progress Note - Pharmacy Subjective: TCU Admission Objective: Allergies codeine Adverse Reaction (Verified 09/01/21 09:21) Other morphine Adverse Reaction (Verified 09/01/21 09:21) Other Current Medications Generic Name Dose Route Start Last Admin Trade Name Freq PRN Reason Stop Dose Admin Acetaminophen 1,000 mg 09/02/21 20:12 09/03/21 10:46 Acetaminophen 500 Mg Tablet PO 1,000 mg Q6H PRN PRN Administration Pain Score 1-3 Aspirin 81 mg 10/02/21 08:00 Aspirin 81 Mg Tab.Chew PO BREAKFAST AVANI Aspirin 81 mg 09/03/21 08:00 09/03/21 07:58 Aspirin 81 Mg Tab.Chew PO 10/01/21 23:53 81 mg BIDCM AVANI Administration Bisacodyl 10 mg 09/02/21 20:13 Bisacodyl 5 Mg Tablet PO DAILY PRN PRN Constipation Citalopram Hydrobromide 10 mg 09/03/21 06:00 09/03/21 05:17 Citalopram 10 Mg Tablet PO 10 mg DAILY AVANI Administration Clonazepam 0.5 mg 09/02/21 18:00 09/03/21 05:16 Clonazepam 0.5 Mg Tablet PO 0.5 mg BID AVANI Administration Clopidogrel Bisulfate 75 mg 09/03/21 06:00 09/03/21 05:17 Clopidogrel Bisulfate 75 Mg Tablet PO 75 mg DAILY AVANI Administration Fluticasone Propionate 2 spray 09/03/21 06:00 09/03/21 05:19 Fluticasone 0.05% 1 [place] Nasal.Sry NASAL 2 spray DAILY AVANI Administration Hydroxychloroquine Sulfate 300 mg 09/03/21 08:00 09/03/21 07:59 Hydroxychloroquine 200 Mg Tablet PO 300 mg DAILYCM AVANI Administration Lactobacillus Acidophilus 1 tablet 09/02/21 18:00 09/03/21 05:22 Lactobacillus Acidophilus PO 1 tablet BID AVANI Administration Mirtazapine 15 mg 09/02/21 22:00 09/02/21 22:17 Mirtazapine 15 Mg Tablet PO 15 mg QHS AVANI Administration Nutritional Formula (Lactose Free) 118 ml 09/03/21 18:00 Ensure Compact 118 Ml Liquid PO BID AVANI Oxycodone HCl 5 mg 09/03/21 08:02 09/03/21 10:46 Oxycodone 5 Mg Tablet PO 5 mg Q4H PRN PRN Administration Pain Score 4-10 Pantoprazole Sodium 20 mg 09/03/21 06:00 09/03/21 05:17 Pantoprazole Sodium 20 Mg Tablet PO 20 mg DAILY AVANI Administration Polyethylene Glycol 17 gm 09/03/21 06:00 09/03/21 05:17 Polyethylene Glycol 3350 17 Gm Packet PO 17 gm DAILY AVANI Administration Senna/Docusate Sodium 1 tablet 09/02/21 20:15 09/03/21 05:17 Senna/Docusate Sodium 1 Tablet PO 1 tablet BID AVANI Administration Sodium Chloride 10 - 40 ml 09/02/21 16:15 0.9% Saline Lock 10 Ml Syringe IV UD PRN SALINE FLUSH Tuberculin PPD 0.1 ml 09/10/21 10:00 Tuberculin,Purif.Prot.Deriv. 50 Tu/Ml Vial ID 09/10/21 10:01 X1 ONE Zolpidem Tartrate 5 mg 09/02/21 22:00 09/02/21 22:17 Zolpidem Tartrate 5 Mg Tablet PO 5 mg QHS AVANI Administration Problem List (Last Updated 09/02/21 @ 20:[address] Nicolas Bajwa MD) Coronary artery disease (Acute) Systemic lupus erythematosus (Acute) Insomnia (Acute) Gastroesophageal reflux disease (Acute) Depression (Acute) Anxiety (Acute) Debility (Acute) Status post total right knee replacement using cement (Acute) Vital Signs Temp Pulse Resp BP Pulse Ox 98.5 F 60 16 146/55 H 98 09/02/21 16:02 09/02/21 18:04 09/02/21 18:04 09/02/21 16:02 09/02/21 18:04 Oxygen Delivery Method Room Air Weight: 68.039 kg Body Mass Index (BMI) 25.7 Sodium 127 mmol/L (136-145) L 09/03/21 05:32 Potassium 4.2 mmol/L (3.5-5.1) 09/03/21 05:32 Chloride 96 mmol/L (98-107) L 09/03/21 05:32 Carbon Dioxide 23.0 mmol/L (21.0-32.0) 09/03/21 05:32 Anion Gap 8 (5-15) 09/03/21 05:32 BUN 25 mg/dL (7-18) H 09/03/21 05:32 Creatinine 0.65 mg/dL (0.55-1.02) 09/03/21 05:32 Est GFR (MDRD) Af Amer 112 mL/min (>60) 09/03/21 05:32 Est GFR (MDRD) Non-Af 92 mL/min (>60) 09/03/21 05:32 BUN/Creatinine Ratio 38.3 RATIO (10-20) H 09/03/21 05:32 Glucose 131 mg/dL (74-106) H 09/03/21 05:32 Assessment/Plan: 1. Pain: acetaminophen 1000mg PO Q6H PRN pain 1-3/10 and oxycodone 5mg PO Q4H PRN pain 4-07/27. Please continue to monitor for increased pain, PRN usage, constipation and respiratory depression. 2. DVT prophylaxis: aspirin 81mg PO BIDCM thru 10/01/21. Please continue to monitor for S/S of bleeding/DVT and hemoglobin (last 10.1g/dL). 3. CAD: clopidogrel 75mg PO daily and aspirin 81mg PO DAILYCM (starting 10/02/21). Please continue to monitor for S/S of bleeding and hemoglobin. 4. Systemic lupus: hydroxychloroquine 300mg DAILYCM. Please continue to monitor for S/S of lupus. 5. GERD: pantoprazole 20mg PO daily. Please continue to monitor for S/S of GERD and diarrhea. 6. Allergic rhinitis: fluticasone 0.05% nasal spray 2sprays nasal daily. Please continue to monitor for S/S of allergies. 7. GI prophylaxis: lactobacillus 1T PO BID. Please continue to monitor. Psychotropic Medications: 1. Depression: citalopram 10mg PO daily. Please see physician note regarding GDR. 2. Anxiety: clonazepam 0.5mg PO BID. Please see physician note regarding GDR. 3. Appetite loss: mirtazapine 15mg PO QHS. Please see physician note regarding GDR. 4. Insomnia: zolpidem 5mg PO QHS. Please see physician note regarding GDR. Unnecessary Medications: None Bowel Regimen: Miralax 17gm PO daily, senna/docusate 1T PO BID and bisacodyl 10mg PO daily PRN constipation. Please continue to monitor for S/S of constipation and PRN usage. Date of Note:: 09/03/21
--- NOTE | 2021-09-03 15:24 | CASEMGMT ---
Social Work Met with patient for initial assessment. Pt fixated on pain during assessment. Nursing and aide aware and providing interventions to assist with pain. Attempted to redirect and offer activities in room, pt declined. Explained Medicare benefit. Encouraged to contact secondary insurance to ensure copay coverage. Discussed code status. Pt confirmed full code. MOLST form completed, communication to , placed in chart. SW to continue to follow. Mirta Mason, SHELVER PROCESS DESIGN ENGINEER
--- NOTE | 2021-09-03 16:20 | CHAPLAIN ---
Type of Pastoral Visit _x__ Initial Visit ___ Follow-up Visit ___ On-call Visit ___ General Patient Visit ___ Spiritual Assessment ___ Family Conference ___ Bereavement ___ Rapid Response ___ Code Blue ___ Other (describe below) Pastoral Care Referral From _x__ Patient ___ Family ___ Nurse ___ Physician ___ Hand Assembler ___ Chestnut Tanner ___ Other (describe below) Sacrament/Intervention _x__ Active listening ___ Anointing ___ Religious ___ Bereavement ___ Communion _x__ Elsy exploration ___ ___ Life review _x__ Prayer ___ Reconciliation ___ Sacrament of Sick _x__ Supportive presence ___ Wedding ___ Other (describe below) Pastoral Comments patient is lying in bed quietly; pt states that it is not a very good day as says she has pain in her leg and was not able to sleep last night; pt says she normally attended a [employer] until COVID and now goes to a [employer] u[employer] in her neighborhood; pt welcomes prayer support
[2021-09-03 16:21] VITALS: BP 156/70; PULSE 64; RESP 19; TEMP 36.3; O2SAT 94
[2021-09-03] MEDS: 0.9% Saline Lock 10 ML Syringe IV (18:34)
[2021-09-03] MEDS: 0.9% Normal Saline 1,000 ML 75 ML IV (18:54)
[2021-09-03 19:44] LABS: Osmolality, Serum 276 mOsm/KG (280-301)
[2021-09-03 20:33] LABS: Urine Sodium 10 mmol/L (Not Establ.)
[2021-09-03 20:40] LABS: Osmolality, Urine 576 mOsm/KG
[2021-09-03] MEDS: Zolpidem Tartrate 5 MG Tablet PO (22:02)
[2021-09-03] MEDS: Mirtazapine 15 MG Tablet PO (22:06)
[2021-09-04] MEDS: oxyCODONE 5 MG Tablet PO ×3 (02:07→14:19)
[2021-09-04 06:09] LABS: Absolute Lymphocyte Count 1.61 X10^3/uL (0.83-4.51); Absolute Neutrophil Count 7.8 X10^3/uL (2.0-7.7); Basophil# 0.01 X10^3/uL; Basophil% 0.1 % (0-1); Eosinophil# 0.01 X10^3/uL; Eosinophils% 0.1 % (0-5); Hematocrit 27.8 % (37-47); Hemoglobin 9.3 g/dL (12.0-15.0); Lymphocyte # 1.61 X10^3/ul (0.83-4.51); Lymphocyte % 14.7 % (19-41); Mean Corp Hgb Conc 33.5 g/dL (32-36); Mean Corpuscular Hgb 29.8 pg (27.0-32.0); Mean Corpuscular Volume 89.1 fL (81-99); Mean Platelet Vol. 10.9 fl (6.2-12.0); Monocyte% 13.7 % (0-10); NRBC Flagged by Analyzer 0 % (0-5); Neutrophil # 7.78 X10^3/uL (2.7-7.7); Neutrophil % 70.9 % (47-70); Platelet Count 209 K/mm3 (150-450); RBC Distribution Width CV 13.2 % (11.6-14.6); RBC Distribution Width SD 43.6 fl (35.1-43.9); Red Blood Count 3.12 M/mm3 (4.2-5.4)
[2021-09-04] MEDS: Polyethylene Glycol 3350 17 GM PACKET PO (06:10)
[2021-09-04] MEDS: clonazePAM 0.5 MG Tablet PO ×2 (06:10→16:38)
[2021-09-04] MEDS: Pantoprazole Sodium 20 MG Tablet PO (06:11)
[2021-09-04] MEDS: Clopidogrel Bisulfate 75 MG Tablet PO (06:11)
[2021-09-04] MEDS: Senna/Docusate Sodium 1 Tablet PO ×2 (06:11→16:35)
[2021-09-04] MEDS: Citalopram 10 MG Tablet PO (06:11)
[2021-09-04] MEDS: Fluticasone 0.05% 1 SPRAY NASAL.SRY 2 SPRAY NASAL (06:29)
[2021-09-04 06:57] LABS: Anion Gap 6 (5-15); BUN 16 mg/dL (7-18); BUN/Creat Ratio 29.6 RATIO (10-20); Calcium,Total 6.5 mg/dL (8.5-10.1); Chloride 97 mmol/L (98-107); Creatinine, Serum 0.54 mg/dL (0.55-1.02); EST Glomerular Filtration Rate 115 mL/min (>60); Est Glom Filt Rate - Afr Amer 139 mL/min (>60); Estimated Creatinine Clearance 37.45 ml/min; Glucose 119 mg/dL (74-106); Potassium 4.1 mmol/L (3.5-5.1); Sodium Level 126 mmol/L (136-145)
[2021-09-04] MEDS: 0.9% Saline Lock 10 ML Syringe IV (08:27)
[2021-09-04] MEDS: Aspirin 81 MG TAB.CHEW PO ×2 (08:28→16:35)
[2021-09-04] MEDS: Hydroxychloroquine 200 MG Tablet 300 MG PO (08:28)
[2021-09-04] MEDS: Acetaminophen 500 MG Tablet 1000 MG PO ×2 (08:32→22:14)
[2021-09-04] MEDS: Calcium Carb/Vitamin D 1 TABLET Tablet PO ×2 (11:40→16:35)
--- NOTE | 2021-09-04 12:45 | NURSING ---
Follow up with Dr. Kam 09-20-21 at 10:15.
[2021-09-04 15:34] VITALS: BP 163/91; PULSE 70; RESP 14; TEMP 36.2; O2SAT 97
[2021-09-04] MEDS: Zolpidem Tartrate 5 MG Tablet PO (20:52)
[2021-09-04] MEDS: Mirtazapine 15 MG Tablet PO (20:53)
[2021-09-04 23:07] VITALS: PULSE 69; RESP 12; O2SAT 96
[2021-09-05] MEDS: Polyethylene Glycol 3350 17 GM PACKET PO (05:08)
[2021-09-05] MEDS: Pantoprazole Sodium 20 MG Tablet PO (05:08)
[2021-09-05] MEDS: Clopidogrel Bisulfate 75 MG Tablet PO (05:08)
[2021-09-05] MEDS: Citalopram 10 MG Tablet PO (05:09)
[2021-09-05] MEDS: Senna/Docusate Sodium 1 Tablet PO ×2 (05:09→17:15)
[2021-09-05] MEDS: clonazePAM 0.5 MG Tablet PO ×2 (05:11→17:18)
[2021-09-05] MEDS: Fluticasone 0.05% 1 SPRAY NASAL.SRY 2 SPRAY NASAL (05:15)
[2021-09-05 06:47] LABS: Anion Gap 6 (5-15); BUN 14 mg/dL (7-18); BUN/Creat Ratio 20.9 RATIO (10-20); Calcium,Total 7.1 mg/dL (8.5-10.1); Chloride 100 mmol/L (98-107); Creatinine, Serum 0.67 mg/dL (0.55-1.02); EST Glomerular Filtration Rate 89 mL/min (>60); Est Glom Filt Rate - Afr Amer 108 mL/min (>60); Estimated Creatinine Clearance 37.45 ml/min; Glucose 112 mg/dL (74-106); Sodium Level 132 mmol/L (136-145)
[2021-09-05] MEDS: Calcium Carb/Vitamin D 1 TABLET Tablet PO ×3 (08:34→17:15)
[2021-09-05] MEDS: Hydroxychloroquine 200 MG Tablet 300 MG PO (08:35)
[2021-09-05] MEDS: Aspirin 81 MG TAB.CHEW PO ×2 (08:35→17:16)
[2021-09-05] MEDS: Acetaminophen 500 MG Tablet 1000 MG PO ×2 (08:43→21:44)
--- NOTE | 2021-09-05 11:15 | NURSING ---
Surgical mepilex with blood pooling underneath and leaking noted. Removed at this time. Large blood clot noted under neat. Incision intact with deo. Small amount of active bleeding noted in one area of the incision. Dry dressing applied. Wrapped with kerlix and GRETA wraps to give some pressure to incision. Polar care put on knee to help with swelling, pain and bleeding. Will continue to monitor.
[2021-09-05] MEDS: oxyCODONE 5 MG Tablet PO (13:18)
[2021-09-05 14:05] VITALS: BP 139/62; PULSE 61; RESP 15; TEMP 36.6; O2SAT 97
[2021-09-05] MEDS: Zolpidem Tartrate 5 MG Tablet PO (21:45)
[2021-09-05] MEDS: Mirtazapine 15 MG Tablet PO (21:45)
[2021-09-06] MEDS: Polyethylene Glycol 3350 17 GM PACKET PO (05:35)
[2021-09-06] MEDS: Citalopram 10 MG Tablet PO (05:36)
[2021-09-06] MEDS: Pantoprazole Sodium 20 MG Tablet PO (05:36)
[2021-09-06] MEDS: Senna/Docusate Sodium 1 Tablet PO ×2 (05:36→17:12)
[2021-09-06] MEDS: Clopidogrel Bisulfate 75 MG Tablet PO (05:36)
[2021-09-06] MEDS: Fluticasone 0.05% 1 SPRAY NASAL.SRY 2 SPRAY NASAL (05:36)
[2021-09-06] MEDS: clonazePAM 0.5 MG Tablet PO ×2 (05:36→17:12)
[2021-09-06] MEDS: Hydroxychloroquine 200 MG Tablet 300 MG PO (07:55)
[2021-09-06] MEDS: Calcium Carb/Vitamin D 1 TABLET Tablet PO ×3 (07:55→17:12)
[2021-09-06] MEDS: Aspirin 81 MG TAB.CHEW PO ×2 (07:56→17:12)
[2021-09-06] MEDS: Acetaminophen 500 MG Tablet 1000 MG PO ×2 (08:38→21:56)
[2021-09-06 09:24] LABS: Anion Gap 8 (5-15); BUN 13 mg/dL (7-18); Calcium,Total 7.3 mg/dL (8.5-10.1); Chloride 101 mmol/L (98-107); Creatinine, Serum 0.62 mg/dL (0.55-1.02); EST Glomerular Filtration Rate 98 mL/min (>60); Est Glom Filt Rate - Afr Amer 118 mL/min (>60); Estimated Creatinine Clearance 37.45 ml/min; Glucose 95 mg/dL (74-106); Potassium 3.6 mmol/L (3.5-5.1); Sodium Level 134 mmol/L (136-145)
[2021-09-06] MEDS: oxyCODONE 5 MG Tablet PO (11:14)
[2021-09-06 14:47] VITALS: BP 138/52; PULSE 64; RESP 16; TEMP 36.7; O2SAT 92
[2021-09-06] MEDS: Zolpidem Tartrate 5 MG Tablet PO (21:55)
[2021-09-06] MEDS: Mirtazapine 15 MG Tablet PO (21:57)
[2021-09-07] MEDS: Clopidogrel Bisulfate 75 MG Tablet PO (04:46)
[2021-09-07] MEDS: Pantoprazole Sodium 20 MG Tablet PO (04:46)
[2021-09-07] MEDS: oxyCODONE 5 MG Tablet PO (04:46)
[2021-09-07] MEDS: Citalopram 10 MG Tablet PO (04:47)
[2021-09-07] MEDS: Senna/Docusate Sodium 1 Tablet PO ×2 (04:47→18:16)
[2021-09-07] MEDS: Polyethylene Glycol 3350 17 GM PACKET PO (04:48)
[2021-09-07] MEDS: Fluticasone 0.05% 1 SPRAY NASAL.SRY 2 SPRAY NASAL (04:48)
[2021-09-07] MEDS: clonazePAM 0.5 MG Tablet PO ×2 (04:50→18:16)
[2021-09-07] MEDS: Aspirin 81 MG TAB.CHEW PO ×2 (07:36→18:16)
[2021-09-07] MEDS: Calcium Carb/Vitamin D 1 TABLET Tablet PO ×3 (07:36→18:16)
[2021-09-07] MEDS: Hydroxychloroquine 200 MG Tablet 300 MG PO (07:36)
[2021-09-07] MEDS: Acetaminophen 500 MG Tablet 1000 MG PO ×2 (11:47→22:39)
[2021-09-07 16:32] VITALS: BP 137/62; PULSE 65; RESP 16; TEMP 37.2; O2SAT 96
[2021-09-07] MEDS: Zolpidem Tartrate 5 MG Tablet PO (22:34)
[2021-09-07] MEDS: Mirtazapine 15 MG Tablet PO (22:34)
[2021-09-08 04:15] VITALS: BP 159/68; PULSE 68; RESP 20; TEMP 36.8; O2SAT 98
[2021-09-08] MEDS: oxyCODONE 5 MG Tablet PO (04:21)
[2021-09-08] MEDS: Fluticasone 0.05% 1 SPRAY NASAL.SRY 2 SPRAY NASAL (04:30)
[2021-09-08] MEDS: Clopidogrel Bisulfate 75 MG Tablet PO (04:31)
[2021-09-08] MEDS: clonazePAM 0.5 MG Tablet PO ×2 (04:31→17:34)
[2021-09-08] MEDS: Senna/Docusate Sodium 1 Tablet PO ×2 (04:32→16:47)
[2021-09-08] MEDS: Pantoprazole Sodium 20 MG Tablet PO (04:32)
[2021-09-08] MEDS: Citalopram 10 MG Tablet PO (04:32)
--- NOTE | 2021-09-08 04:36 | NURSING ---
Medications administered at this time per pt request just after toileting to allow pt to go back to sleep.
[2021-09-08] MEDS: Hydroxychloroquine 200 MG Tablet 300 MG PO (07:54)
[2021-09-08] MEDS: Calcium Carb/Vitamin D 1 TABLET Tablet PO ×3 (07:54→16:47)
[2021-09-08] MEDS: Aspirin 81 MG TAB.CHEW PO ×2 (07:54→16:47)
[2021-09-08] MEDS: Acetaminophen 500 MG Tablet 1000 MG PO ×2 (08:59→22:42)
--- NOTE | 2021-09-08 11:08 | NURSING ---
This nurse asked patient if she wanted Prevnar 13 vaccination. Patient refusing vaccine at this time and will consult her PCP.
--- NOTE | 2021-09-08 13:24 | NURSING ---
therapy made pt up ad eliazar with walker.
[2021-09-08 15:08] VITALS: BP 150/52; PULSE 59; RESP 14; TEMP 36.8; O2SAT 94
[2021-09-08 22:00] VITALS: PULSE 67; RESP 16; O2SAT 97
[2021-09-08] MEDS: Mirtazapine 15 MG Tablet PO (22:42)
[2021-09-08] MEDS: Zolpidem Tartrate 5 MG Tablet PO (22:42)
[2021-09-09] MEDS: Fluticasone 0.05% 1 SPRAY NASAL.SRY 2 SPRAY NASAL (05:45)
[2021-09-09] MEDS: Acetaminophen 500 MG Tablet 1000 MG PO ×3 (05:46→22:48)
[2021-09-09] MEDS: Citalopram 10 MG Tablet PO (05:46)
[2021-09-09] MEDS: Pantoprazole Sodium 20 MG Tablet PO (05:46)
[2021-09-09] MEDS: Clopidogrel Bisulfate 75 MG Tablet PO (05:46)
[2021-09-09] MEDS: clonazePAM 0.5 MG Tablet PO ×2 (05:50→17:27)
[2021-09-09] MEDS: Hydroxychloroquine 200 MG Tablet 300 MG PO (08:05)
[2021-09-09] MEDS: Calcium Carb/Vitamin D 1 TABLET Tablet PO ×3 (08:05→17:27)
[2021-09-09] MEDS: Aspirin 81 MG TAB.CHEW PO ×2 (08:05→15:46)
--- NOTE | 2021-09-09 12:02 | NURSING ---
Pt had a nose bleed she states that she gets the frequently and takes Plavix every other day per primary Doctor. Was able to get nose bleed to stop will update Dr. Bajwa. Will continue to monitor and Call light within reach.
--- NOTE | 2021-09-09 13:27 | CASEMGMT ---
Social Work Spoke with pt about request to DC 09/14. IDT agreeable. Pt [place] [facility] [place] [facility] [place]. Dtr to transport. Plan: DC home alone with dtr assist 09/14, [facility] PT, FWW Mirta Mason, UNIFORMS SALES REPRESENTATIVE CATEGORY DIRECTOR
[2021-09-09 15:47] VITALS: BP 154/60; PULSE 59; RESP 16; TEMP 36.9; O2SAT 93
--- NOTE | 2021-09-09 19:30 | DS.PCM_ITS ---
Providers Date of Admission: 09/02/21 Primary Care Physician: Dr. Cleveladn Becerra MD Reason For Visit: RIGHT TOTAL KNEE Diagnosis Discharge Diagnosis (1) Debility: Status: Acute Code(s): R53.81 - Other malaise (2) Status post total right knee replacement using cement: Status: Acute Code(s): Z96.651 - Presence of right artificial knee joint (3) Anxiety: Status: Acute Code(s): F41.9 - Anxiety disorder, unspecified (4) Depression: Status: Acute Code(s): F32.A - Depression, unspecified (5) Gastroesophageal reflux disease: Status: Acute Code(s): K21.9 - Gastro-esophageal reflux disease without esophagitis (6) Insomnia: Status: Acute Code(s): G47.00 - Insomnia, unspecified (7) Systemic lupus erythematosus: Status: Acute Code(s): M32.9 - Systemic lupus erythematosus, unspecified (8) Coronary artery disease: Status: Acute Code(s): I25.10 - Atherosclerotic heart disease of [place] coronary artery without angina pectoris Medications at Discharge Home Medications clonazepam 0.5 mg PO BID 06/04/17 clopidogrel 75 mg PO DAILY 06/04/17 fluticasone propionate [Allergy Relief (fluticasone)] 2 spray NS BID 06/04/17 hydroxychloroquine 300 mg PO DAILYCM 06/04/17 mirtazapine [Remeron SolTab] 15 mg PO QHS 06/04/17 Acidophilus 1 ea PO BID 06/27/17 acetaminophen [Tylenol Extra Strength] 1,000 mg PO Q8H PRN PRN 06/27/17 omeprazole 20 mg PO DAILY 06/27/17 zolpidem 5 mg PO QHS 06/27/17 aspirin 81 mg PO BID 09/02/21 citalopram 10 mg PO DAILY 30 Days #30 tab 09/09/21 oxycodone 5 mg PO Q4H PRN PRN 7 Days #42 tab 09/09/21 Hospital Course Operations total knee replacement (Right.) Procedures None Summary of Care Provided Minutes Spent on Discharge: 35 Hospital Course: 81 year old female with below past medical history hospitalized for right total knee replacement 09/01/[address] Kam, admitted to TCU with debility, here for rehabilitation, strengthening, prior to discharge home alone. Discharge home alone with daughter assist 09/14/2021, [facility], Front Wheeled Walker. Physical Exam Const alert and oriented x3 General Appearance: cooperative HEENT normocephalic Eyes PERRL and EOMs intact bilaterally Neck supple, no JVD and no carotid bruits Resp normal respiratory effort, normal air movement and clear to auscultation bilaterally Cardio regular rate and regular rhythm GI normal to inspection, nondistended, normoactive bowel sounds, non-tender and non-distended Extremity normal capillary refill General Extremity: Negative for edema Skin no rashes or lesions noted General Skin Exam: no breakdown Psych affect normal Appearance: appropriate Weight / BMI Weight Weight: 72.847 kg Body Mass Index (BMI) 25.7 ABG / Lab / Microbiology Data Result Diagrams: 09/04/21 05:55 09/06/21 08:18 D/C Instructions Discharge Diet: No restrictions Discharge Activity: Return to Normal Activity, May Shower and Use Walker Weight Bearing Status: Weight bearing as tolerated Call your doctor if you observe: Fever of 101 or Higher, Inability to urinate, Inability to have a bowel movement, Shortness of breath, Dizziness, Fainting spells, Swelling in the ankles, Chest pain and Uncontrolled pain Additional Instructions: Discharge home alone with daughter assist 09/14/2021, [facility] PT, Front Wheeled Walker. Please Follow Up With: Cleveland Becerra When: 1 week. Meaningful Use Info Meaningful Use Diagnoses (Choose all that apply): None applicable Discharge Plan Admission Admit Date/Time: 09/02/21 15:40 Primary Reason for Your Visit: Debility. Attending Provider: Nicolas Bajwa Chi Primary Care Provider: Cleveland Becerra Instructions Additional Instructions / Restrictions: Discharge home alone with daughter assist 09/14/2021, [facility] PT, Front Wheeled Walker. Discharge Orders/Prescriptions Prescriptions: New oxycodone 5 mg Tablet 5 mg PO Q4H PRN PRN (Reason: Pain Score 4-10) 7 Days Qty: 42 RF: 0 Continued clonazepam 0.5 MG tablet 0.5 mg PO BID RF: 0 clopidogrel 75 MG tablet 75 mg PO DAILY RF: 0 mirtazapine [Remeron SolTab] 15 MG tablet,disintegrating 15 mg PO QHS RF: 0 fluticasone propionate [Allergy Relief (fluticasone)] 15.8 ML spray,suspension 2 spray NS BID RF: 0 omeprazole 20 MG capsule 20 mg PO DAILY RF: 0 Acidophilus 1 EACH capsule 1 ea PO BID RF: 0 zolpidem 5 MG tablet 5 mg PO QHS RF: 0 acetaminophen [Tylenol Extra Strength] 500 MG tablet 1,000 mg PO Q8H PRN PRN (Reason: Pain) RF: 0 aspirin 81 mg tablet,chewable 81 mg PO BID RF: 0 citalopram 10 MG tablet 10 mg PO DAILY 30 Days Qty: 30 RF: 0 Discontinued oxycodone 5 mg Tablet 2.5 mg PO Q4H PRN PRN (Reason: Pain Score 4-10) 7 Days Qty: 42 RF: 0 No Action hydroxychloroquine 200 MG tablet 300 mg PO DAILYCM RF: 0 Referrals / Follow Up: Cleveland Becerra MD [Primary Care Provider] - Disposition Disposition (needs filled in before D/C Order can be placed): Home, Self Care
[2021-09-09] MEDS: Zolpidem Tartrate 5 MG Tablet PO (22:43)
[2021-09-09] MEDS: Mirtazapine 15 MG Tablet PO (22:44)
[2021-09-09 23:00] VITALS: PULSE 60; RESP 14; O2SAT 93
[2021-09-10 05:50] LABS: Absolute Lymphocyte Count 1.47 X10^3/uL (0.83-4.51); Absolute Neutrophil Count 4.5 X10^3/uL (2.0-7.7); Basophil# 0.03 X10^3/uL; Basophil% 0.4 % (0-1); Eosinophil# 0.08 X10^3/uL; Eosinophils% 1.1 % (0-5); Hematocrit 25.9 % (37-47); Hemoglobin 8.6 g/dL (12.0-15.0); Lymphocyte # 1.47 X10^3/ul (0.83-4.51); Mean Corp Hgb Conc 33.2 g/dL (32-36); Mean Corpuscular Hgb 30.1 pg (27.0-32.0); Mean Corpuscular Volume 90.6 fL (81-99); Mean Platelet Vol. 9.6 fl (6.2-12.0); Monocyte# 1.29 X10^3/uL; Monocyte% 17.6 % (0-10); NRBC Flagged by Analyzer 0 % (0-5); Neutrophil # 4.45 X10^3/uL (2.7-7.7); Neutrophil % 60.6 % (47-70); Platelet Count 352 K/mm3 (150-450); RBC Distribution Width CV 13.4 % (11.6-14.6); RBC Distribution Width SD 44.2 fl (35.1-43.9); Red Blood Count 2.86 M/mm3 (4.2-5.4); White Blood Count 7.3 K/mm3 (4.4-11.0)
[2021-09-10] MEDS: Pantoprazole Sodium 20 MG Tablet PO (06:00)
[2021-09-10] MEDS: Citalopram 10 MG Tablet PO (06:00)
[2021-09-10] MEDS: clonazePAM 0.5 MG Tablet PO ×2 (06:00→16:41)
[2021-09-10] MEDS: Fluticasone 0.05% 1 SPRAY NASAL.SRY 2 SPRAY NASAL (06:00)
[2021-09-10 06:27] LABS: Anion Gap 10 (5-15); BUN 12 mg/dL (7-18); BUN/Creat Ratio 21.6 RATIO (10-20); Calcium,Total 7.6 mg/dL (8.5-10.1); Chloride 103 mmol/L (98-107); Creatinine, Serum 0.56 mg/dL (0.55-1.02); EST Glomerular Filtration Rate 111 mL/min (>60); Est Glom Filt Rate - Afr Amer 135 mL/min (>60); Estimated Creatinine Clearance 37.45 ml/min; Glucose 101 mg/dL (74-106); Potassium 3.8 mmol/L (3.5-5.1); Sodium Level 136 mmol/L (136-145)
[2021-09-10] MEDS: Acetaminophen 500 MG Tablet 1000 MG PO ×2 (08:54→14:59)
[2021-09-10] MEDS: Hydroxychloroquine 200 MG Tablet 300 MG PO (08:55)
[2021-09-10] MEDS: Aspirin 81 MG TAB.CHEW PO ×2 (08:55→16:41)
[2021-09-10] MEDS: Calcium Carb/Vitamin D 1 TABLET Tablet PO ×3 (08:55→16:41)
[2021-09-10] MEDS: Iron Polysaccharide Complex 150 MG CAPSULE PO (08:57)
--- NOTE | 2021-09-10 10:24 | CASEMGMT ---
Social Work IDT met with patient and dtr for care plan meeting. Discussed patient's progress in therapy and nursing. Pt progressing well and will DC home 09/14. No needs/concerns noted. Mirta Mason, CIGARETTE FILTER INSPECTOR ADULT SCHOOL TEACHER
[2021-09-10] MEDS: Tuberculin,Purif.prot.deriv. 50 TU/ML Vial 0.1 ML ID (12:12)
[2021-09-10 14:18] VITALS: PULSE 62; RESP 16; O2SAT 97
[2021-09-10 14:59] VITALS: BP 142/67; PULSE 74; RESP 20; TEMP 36.6; O2SAT 96
--- NOTE | 2021-09-10 15:11 | CASEMGMT ---
Social Work BIMS and PHQ-9 completed for MDS assessment. Mirta Mason, LOMBARDI DEVELOPER YARDING AND FOLDING MACHINE OPERATOR
[2021-09-10] MEDS: Zolpidem Tartrate 5 MG Tablet PO (22:06)
[2021-09-10] MEDS: Mirtazapine 15 MG Tablet PO (22:06)
[2021-09-10] MEDS: oxyCODONE 5 MG Tablet PO (22:06)
[2021-09-11] MEDS: clonazePAM 0.5 MG Tablet PO ×2 (06:34→17:44)
[2021-09-11] MEDS: Clopidogrel Bisulfate 75 MG Tablet PO (06:35)
[2021-09-11] MEDS: Citalopram 10 MG Tablet PO (06:35)
[2021-09-11] MEDS: Fluticasone 0.05% 1 SPRAY NASAL.SRY 2 SPRAY NASAL (06:35)
[2021-09-11] MEDS: Pantoprazole Sodium 20 MG Tablet PO (06:35)
[2021-09-11 06:39] VITALS: BP 152/69; PULSE 79
[2021-09-11] MEDS: Hydroxychloroquine 200 MG Tablet 300 MG PO (08:13)
[2021-09-11] MEDS: Aspirin 81 MG TAB.CHEW PO ×2 (08:14→17:44)
[2021-09-11] MEDS: Calcium Carb/Vitamin D 1 TABLET Tablet PO ×3 (08:14→17:44)
[2021-09-11] MEDS: Iron Polysaccharide Complex 150 MG CAPSULE PO (08:14)
[2021-09-11] MEDS: Acetaminophen 500 MG Tablet 1000 MG PO ×2 (08:16→17:44)
[2021-09-11 13:24] VITALS: BP 166/57; PULSE 61; RESP 16; TEMP 36.6; O2SAT 97
[2021-09-11] MEDS: Zolpidem Tartrate 5 MG Tablet PO (21:52)
[2021-09-11] MEDS: Mirtazapine 15 MG Tablet PO (21:53)
[2021-09-11] MEDS: oxyCODONE 5 MG Tablet PO (21:53)
[2021-09-12 05:27] LABS: Hematocrit 26.5 % (37-47); Hemoglobin 8.8 g/dL (12.0-15.0)
[2021-09-12] MEDS: clonazePAM 0.5 MG Tablet PO ×2 (06:23→16:50)
[2021-09-12] MEDS: Fluticasone 0.05% 1 SPRAY NASAL.SRY 2 SPRAY NASAL (06:24)
[2021-09-12] MEDS: Senna/Docusate Sodium 1 Tablet PO (06:24)
[2021-09-12] MEDS: Pantoprazole Sodium 20 MG Tablet PO (06:24)
[2021-09-12] MEDS: Citalopram 10 MG Tablet PO (06:24)
[2021-09-12 06:28] VITALS: BP 162/76; PULSE 71
[2021-09-12] MEDS: Hydroxychloroquine 200 MG Tablet 300 MG PO (07:44)
[2021-09-12] MEDS: Aspirin 81 MG TAB.CHEW PO ×2 (07:44→16:48)
[2021-09-12] MEDS: Calcium Carb/Vitamin D 1 TABLET Tablet PO ×3 (07:44→16:48)
[2021-09-12] MEDS: Iron Polysaccharide Complex 150 MG CAPSULE PO (07:44)
[2021-09-12 15:50] VITALS: BP 177/52; PULSE 66; RESP 16; TEMP 36.7; O2SAT 96
[2021-09-12] MEDS: Zolpidem Tartrate 5 MG Tablet PO (22:17)
[2021-09-12] MEDS: Acetaminophen 500 MG Tablet 1000 MG PO (22:17)
[2021-09-12] MEDS: Mirtazapine 15 MG Tablet PO (22:18)
[2021-09-13 05:56] VITALS: BP 166/73; PULSE 62
[2021-09-13] MEDS: Acetaminophen 500 MG Tablet 1000 MG PO ×3 (06:00→22:08)
[2021-09-13] MEDS: Fluticasone 0.05% 1 SPRAY NASAL.SRY 2 SPRAY NASAL (06:01)
[2021-09-13] MEDS: Clopidogrel Bisulfate 75 MG Tablet PO (06:01)
[2021-09-13] MEDS: Citalopram 10 MG Tablet PO (06:01)
[2021-09-13] MEDS: Pantoprazole Sodium 20 MG Tablet PO (06:01)
[2021-09-13] MEDS: clonazePAM 0.5 MG Tablet PO ×2 (06:03→17:04)
[2021-09-13] MEDS: Calcium Carb/Vitamin D 1 TABLET Tablet PO ×3 (08:00→17:04)
[2021-09-13] MEDS: Aspirin 81 MG TAB.CHEW PO ×3 (08:00→17:04)
[2021-09-13] MEDS: Hydroxychloroquine 200 MG Tablet 300 MG PO (08:01)
[2021-09-13] MEDS: Iron Polysaccharide Complex 150 MG CAPSULE PO (08:01)
[2021-09-13 12:21] VITALS: PULSE 60; RESP 14; O2SAT 95
[2021-09-13 14:09] VITALS: BP 141/57; PULSE 60; RESP 14; TEMP 36.7; O2SAT 96
[2021-09-13] MEDS: Mirtazapine 15 MG Tablet PO (22:08)
[2021-09-13] MEDS: Zolpidem Tartrate 5 MG Tablet PO (22:10)
[2021-09-14] MEDS: Fluticasone 0.05% 1 SPRAY NASAL.SRY 2 SPRAY NASAL (06:01)
[2021-09-14] MEDS: Citalopram 10 MG Tablet PO (06:01)
[2021-09-14] MEDS: clonazePAM 0.5 MG Tablet PO (06:01)
[2021-09-14] MEDS: Pantoprazole Sodium 20 MG Tablet PO (06:01)
[2021-09-14 06:07] VITALS: PULSE 76; RESP 12; O2SAT 96
[2021-09-14 06:12] VITALS: PULSE 76; RESP 12; O2SAT 96
[2021-09-14] MEDS: Aspirin 81 MG TAB.CHEW PO ×2 (08:25)
[2021-09-14] MEDS: Calcium Carb/Vitamin D 1 TABLET Tablet PO (08:25)
[2021-09-14] MEDS: Hydroxychloroquine 200 MG Tablet 300 MG PO (08:26)
[2021-09-14] MEDS: Iron Polysaccharide Complex 150 MG CAPSULE PO (08:26)
[2021-09-14] MEDS: Acetaminophen 500 MG Tablet 1000 MG PO (08:32)
--- NOTE | 2021-09-15 07:57 | MDS.RN ---
Information for the mds was obtained from review of the clinical record, interview of resident, staff, and direct observation of resident's care.
== END 2021-09-14 12:10 | disposition home or self-care (01) | DRG 561 ==
PROVIDERS: Admitting Provider Family Medicine Geriatric Medicine; PCP Family Medicine; Visit Provider Family Medicine Geriatric Medicine
DX: Z47.1 Aftercare following joint replacement surgery (principal); Z96.651 Presence of right artificial knee joint; I25.10 Atherosclerotic heart disease of native coronary artery without angina pectoris; F32.A Depression, unspecified; F41.9 Anxiety disorder, unspecified; K21.9 Gastro-esophageal reflux disease without esophagitis; M32.9 Systemic lupus erythematosus, unspecified; Z79.899 Other long term (current) drug therapy; Z79.02 Long term (current) use of antithrombotics/antiplatelets; Z79.82 Long term (current) use of aspirin
CPT/HCPCS: 36415; 80048; 83930; 83935; 84300; 85014; 85018; 85025; 97110; 97116; 97162; 97166; 97530; 97535; 97802; J7030; A4216

== ENCOUNTER → 2021-09-18 16:15 | Outpatient (CLI) | payer MEDICARE, OTHER, SELFPAY ==
--- NOTE | 2021-09-18 16:27 | VDLE_ITS ---
Reason For Study: Pain in left leg RIGHT GSV is normal. CFV is compressible, spontaneous, phasic, competent and demonstrates normal augmentation. FV is compressible, spontaneous, phasic, competent and demonstrates normal augmentation. POP V is compressible, spontaneous, phasic, competent and demonstrates normal augmentation. T/P Trunk is compressible. PTV is compressible. RT PerV is compressible. Nonvasculairzed structure is noted in the right popliteal space measuring 1.07 x 1.17 x 4.46 cm. Procedure This is a venous duplex using B-mode, color flow and spectral Doppler. Exam performed in department. A preliminary report was called and/or faxed to [facility]. VL/Venous Duplex US, Unilateral Interpretation Summary Deep veins of the right lower extremity are patent and compressible segmentally . There is no evidence of right lower extremity deep vein thrombosis. Valvular competence harry ears intact within the proximal deep venous system on the right . The right great saphenous vein a ppears patent and compressible segmentally. A non-vascular structure is noted in the right poplit eal space, measuring 1.07 cm x 1.17 cm x 4.46 cm. This may represent a popliteal cyst. Clinical radha elation is advised. Ordering Physician: Chidi Kam Referring Physician: Cleveland Becerra Performed By: Sonya Cardenas RVT
== END ==
PROVIDERS: PCP Family Medicine; Referring Provider Orthopaedic Surgery; Visit Provider Orthopaedic Surgery
DX: M79.604 Pain in right leg (principal)
CPT/HCPCS: 93971

== ENCOUNTER → 2021-09-22 15:03 | Outpatient (CLI) | payer MEDICARE, OTHER, SELFPAY ==
[2021-09-22 18:21] LABS: Anion Gap 11 (5-15); BUN 12 mg/dL (7-18); BUN/Creat Ratio 15.2 RATIO (10-20); Calcium,Total 7.6 mg/dL (8.5-10.1); Chloride 106 mmol/L (98-107); Cholesterol 112 mg/dL (200); Creatinine, Serum 0.79 mg/dL (0.55-1.02); EST Glomerular Filtration Rate 74 mL/min (>60); Est Glom Filt Rate - Afr Amer 90 mL/min (>60); Glucose 95 mg/dL (74-106); High Density Lipoprotein 44 mg/dL; Potassium 3.9 mmol/L (3.5-5.1); Sodium Level 141 mmol/L (136-145); Triglycerides 88 mg/dL; Very Low Density Lipoprotein 18 mg/dL (5-40)
== END ==
PROVIDERS: PCP Family Medicine; Referring Provider Family Medicine; Visit Provider Family Medicine
DX: I10 Essential (primary) hypertension (principal)
CPT/HCPCS: 36415; 80048; 80061

== ENCOUNTER 2022-01-21 15:02 | Outpatient (CLI) | payer MEDICARE, OTHER, SELFPAY ==
[2022-01-21 18:04] LABS: Anion Gap 4 (5-15); BUN 27 mg/dL (7-18); BUN/Creat Ratio 19.9 RATIO (10-20); Calcium,Total 7.4 mg/dL (8.5-10.1); Chloride 103 mmol/L (98-107); Cholesterol 142 mg/dL (200); Creatinine, Serum 1.36 mg/dL (0.55-1.02); EST Glomerular Filtration Rate 40 mL/min (>60); Est Glom Filt Rate - Afr Amer 48 mL/min (>60); Glucose 111 mg/dL (74-106); High Density Lipoprotein 52 mg/dL; Potassium 4.6 mmol/L (3.5-5.1); Sodium Level 135 mmol/L (136-145); Triglycerides 104 mg/dL; Very Low Density Lipoprotein 21 mg/dL (5-40)
== END 2022-01-21 23:59 | disposition home or self-care (01) ==
LOC: MFPLAB 15:07
PROVIDERS: PCP Family Medicine; Referring Provider Family Medicine; Visit Provider Family Medicine
DX: I10 Essential (primary) hypertension (principal)
CPT/HCPCS: 36415; 80048; 80061

== ENCOUNTER → 2022-06-03 | Outpatient (CLI) | payer MEDICARE, OTHER, SELFPAY ==
[2022-06-03 15:15] LABS: Absolute Lymphocyte Count 2.33 X10^3/uL (0.83-4.51); Absolute Neutrophil Count 5.2 X10^3/uL (2.0-7.7); Basophil# 0.03 X10^3/uL; Basophil% 0.4 % (0-1); Eosinophil# 0.08 X10^3/uL; Eosinophils% 0.9 % (0-5); Hematocrit 37.1 % (37-47); Lymphocyte # 2.33 X10^3/ul (0.83-4.51); Lymphocyte % 27.3 % (19-41); Mean Corp Hgb Conc 32.3 g/dL (32-36); Mean Corpuscular Hgb 30.5 pg (27.0-32.0); Mean Corpuscular Volume 94.2 fL (81-99); Mean Platelet Vol. 11.4 fl (6.2-12.0); Monocyte# 0.91 X10^3/uL; Monocyte% 10.7 % (0-10); NRBC Flagged by Analyzer 0 % (0-5); Neutrophil # 5.17 X10^3/uL (2.7-7.7); Neutrophil % 60.5 % (47-70); Platelet Count 244 K/mm3 (150-450); RBC Distribution Width CV 13.9 % (11.6-14.6); RBC Distribution Width SD 48.1 fl (35.1-43.9); Red Blood Count 3.94 M/mm3 (4.2-5.4); White Blood Count 8.5 K/mm3 (4.4-11.0)
[2022-06-03 15:29] LABS: Anion Gap 6 (5-15); BUN 20 mg/dL (7-18); BUN/Creat Ratio 23.3 RATIO (10-20); Calcium,Total 7.3 mg/dL (8.5-10.1); Chloride 101 mmol/L (98-107); Creatinine, Serum 0.86 mg/dL (0.55-1.02); EST Glomerular Filtration Rate 67 mL/min (>60); Est Glom Filt Rate - Afr Amer 81 mL/min (>60); Glucose 88 mg/dL (74-106); Potassium 4.6 mmol/L (3.5-5.1); Sodium Level 135 mmol/L (136-145)
== END | disposition home or self-care (01) ==
LOC: MFPLAB 11:50
PROVIDERS: PCP Family Medicine; Referring Provider Family Medicine; Visit Provider Family Medicine
DX: Z01.818 Encounter for other preprocedural examination (principal)
CPT/HCPCS: 36415; 80048; 85025

== ENCOUNTER 2022-07-03 10:50 | Observation (INO) | payer MEDICARE, OTHER, SELFPAY ==
[2022-07-03] VITALS (14 sets, daily range): BP systolic 132–163; BP diastolic 51–95; PULSE 62–79; RESP 15–18; TEMP 36.2–37.1; O2SAT 91–97; BMI 25.6
[2022-07-03] MEDS: Lactated Ringers 1,000 ML 15 ML IV (07:50)
--- NOTE | 2022-07-03 08:01 | SUR.PREOP ---
talked with Latisha the admitting personal for TCU- she talked with Dr. Gamboa's office yesterday, 07/02, and the nurse said dr gamboa would admit the patient as an obs patient and than decide if needed to go to TCU- Latisha said she has a bed available if needed for her today.
--- NOTE | 2022-07-03 08:49 | RAD_ITS ---
STUDY: X-RAY RIGHT FOOT, 4 TOE REASON FOR EXAM: Female, 82 old. 4TH TOE AMPUTATION, WITH REMOVAL OF 1ST TOE JOINT BUNION, AND REM TECHNIQUE: view(s) of the toe were obtained. COMPARISON: None. FINDINGS: Intraoperative images are provided for amputation of the distal and middle phalanges of the fourth toe. 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 Electronically Signed: Nima Slaughter MD at 12:59 EDT ,
[2022-07-03] MEDS: Cefazolin 2 GM in 0.9% Normal Saline 100 ML IV (09:11)
--- NOTE | 2022-07-03 09:15 | BUN_PTH ---
PATIENT: AKIL KENNEY LOC: [facility]3 U#:[id number] AGE/SX: 82/F ROOM: AZ323 RE07/03/[address]: Dr. Dusty Roy DPM : 1940 BED: 1 DIS: 07/03/2022 SPEC #: [id number] RECD: 07/03/22 15:09 STATUS: GULSHAN RERegis #: [id number] CARISA: 07/03/22 09:[address]: Dusty Roy DEPT: SURGICAL PATHOLOGY RECD BY: Matthew Gomes ENTERED: 07/06/22 07:55 SP TYPE: BUNION OTHR DR: MD Dr. Juvencio Amaro DO Dr. Efewongbe Oleghe, MD Dr. Loren Kirchner, MD Dr. Paul Nielsen, MD Barbara Tickton, MANAGER INTERNAL-C Jaylen Stauffer, MANAGER INTERNAL-C KATI Steele Tissues: A - Bony tissue, NOS B - Bony tissue, NOS C - Toe, NOS Procedures: Decalcification bone/plaque Surgery Specimen Level III Surgery Specimen Level IV HEADER OPERATION: Fourth toe amputation with removal of first toe joint bunion PRE-OP DIAGNOSIS: Bunion pain TISSUE SUBMITTED: A ? Right bunion first metatarsal head, B - Right bunion fifth metatarsal head, C ? Right fourth toe MICROSCOPIC DIAGNOSIS A. Right bunion first metatarsal head: Pieces of bone with reactive changes, clinically bunion. B. Right bunion fifth metatarsal head: A piece of bone with reactive changes, clinically bunion. C. Right fourth toe, amputation: Focal hyperkeratosis. Underlying bone with reactive changes. SJ:jai 07/09/2022 MICROSCOPIC DESCRIPTION Slides are reviewed. GROSS DESCRIPTION A - Received in fixative is one container labeled with the patient's name and designated right bunion first metatarsal head. The specimen consists of three pieces of bone measuring in aggregate 2 x 1.5 x 0.5 cm. The entire specimen is submitted in one cassette after decalcification. B - Received in fixative is one container labeled with the patient's name and designated right bunion fifth metatarsal head. The specimen consists of a piece of bone measuring 2 x 1.5 x 0.4 cm. The specimen is serially sectioned and submitted entirely in one cassette after decalcification. C - Received in fixative is one container labeled with the patient's name and designated right fourth toe. The specimen consists of a portion of toe measuring 1.5 x 1.5 x 1 cm. The nail appears unremarkable. No obvious lesion is noted in the skin. Also present in the container is a detached piece of bone measuring 1 x 1 x 0.7 cm. Willow Machine Tender sections are submitted in two cassettes as follows: 1??longitudinal section, 2 - detached piece of bone, entirely submitted after decalcification. / SJ:rg 07/06/2022 TC:5 CPT: 82167, 79423 x2, 02925 x3
[2022-07-03] MEDS: Bupivacaine 0.25% 30 ML Vial (09:25)
--- NOTE | 2022-07-03 10:41 | PCM.OPRPT ---
Report of Operation Date of Procedure: 07/03/22 Pre-Operative Diagnosis: Hallux valgus bunion, right foot Tailor's bunion right foot Deformed toe/hammer toe 4th digit, right foot Post-Operative Diagnosis: Same Surgery/Procedure Performed:: 1st toe/metatarsal bunionectomy, right foot Tailor's bunionectomy, right foot Partial right 4th toe amputation Surgeon: Dusty Roy crushing machine operator: Type of Anesthesia: Local and MAC Specimen's removed: 1. 1st metatarsal head bunion, right - sent to pathology 2. 5th metatarsal head bunion, right - sent to pathology 3. 4th toe, right - sent to pathology Estimated Blood Loss (mL): 15mL Description of Procedure: Indications: Patient is a 82 year old female with debilitating chronic right foot pain - she has painful bunions and severely deformed and painful right 4th toe. We have treated nonsurgically for quite some time but symptoms are progressing and worsening. She asked for surgical intervention. We discussed the procedures at length, reviewed the possible benefits vs risks, goals, expectations and estimated healing time. She expressed understanding and agreement. The consent forms were reviewed with her and she freely signed them. No guarantees were given. She elected to be admitted post operatively with plan to go to nursing facility. Of note she does have lateral deviation of the 1st toe and medial deviation of the 5th toe- advised patient we will not be doing a deformity correction of these toes - rather we are just going to do a simple bunionectomy to try to get some pain relief - this is because more involved surgery will be much more risky due to her age and other medical problems - patient agreed with this plan and approach. Operative Procedure: The patient was brought back into the operating room and was placed on the operating room table in the supine position. A timeout was performed and the patient was proper identified and the surgical plan was confirmed. The patient received 2g Ancef IV for antibiotic prophylaxis. A well padded right ankle tourniquet was applied around her right ankle. The patient received MAC anesthesia per the anesthesia team. The skin on the right foot was cleansed with 70% Isopropyl alcohol and a total of 20mL of 0.25% Bupivacaine plain was given as a 1st, 4th and 5th ray block on the right foot. The right foot was scrubbed, prepped, and draped in the usual aseptic fashion. The right foot was elevated for 3 minutes and the right ankle pneumatic tourniquet was inflated to 250mmHg. Right 1st toe/metatarsal head bunionectomy: Attention was directed to the right 1st toe and metatarsal head. There was a prominent painful bunion present at the dorsal, medial and plantar medial aspect. This was causing a very painful callus. Using a 15 blade a skin incision was made to the medial aspect of the 1st metatarsal phalangeal joint. Careful dissection was completed down to the capsule of the joint. The capsule was incised and partial reflected exposing the prominent bunion deformity. The bunion was resected from the 1st metatarsal head and also base of the 1st toe proximal phalanx at this level using a powered sagittal saw. The resected bone was sent to pathology as specimen. There was noted to be degenerative changes of the 1st metatarsal phalangeal joint. The bone was softer than normal. The remaining tissues were healthy and viable. The bunion prominence was now removed. The site was flushed out with copious amounts of normal saline. The capsule and subcutaneous was reapproximated using 3-0 Vicryl and the skin was reapproximated using 4-0 Nylon. Right 5th metatarsal head bunionectomy: Attention was directed to the right 5th metatarsal head. There was a prominent painful bunion present at the dorsal and lateral aspect. This was causing a lot of pain. Using a 15 blade a skin incision was made to the dorsal lateral aspect of the 5th metatarsal phalangeal joint, just lateral to the extensor tendons. Careful dissection was completed down to the capsule of the joint. The capsule was incised and partial reflected exposing the prominent bunion deformity. The bunion was resected from the 5th metatarsal head at this level using a powered sagittal saw. The resected bone was sent to pathology as specimen. There was noted to be degenerative changes of the 5th metatarsal phalangeal joint. The bone was softer than normal. The remaining tissues were healthy and viable. The bunion prominence was now removed. The site was flushed out with copious amounts of normal saline. The capsule and subcutaneous was reapproximated using 3-0 Vicryl and the skin was reapproximated using 4-0 Nylon. Right 4th toe partial amputation: Attention was directed to the 4th toe. 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 A skin incision was made around the toe at the level of the proximal interphalangeal joint and the toe was amputated at this level. The prominent proximal phalanx head of the 4th toe was resected using a powered sagittal saw, and bone and amputation portion of the toe was sent to pathology as specimen. The remaining distal edge of the proximal phalanx bone of the 4th toe was smoothed down using a bone cutting rongeur. A flap was created to bring the plantar skin up to meet the dorsal skin. The site was flushed out with copious amounts of normal saline. The skin edges were reapproximated using 4-0 Nylon. At the end of the above procedures intra operative fluoroscopy was used to visualize the bunionectomies and partial 4th toe amputation. This confirmed bunionectomy as noted above along with partial 4th toe amputation without complication. Images were saved. A vital structures, including all vital neurovascular structures were properly identified and protected as necessary throughout the above procedure. A dressing was applied using Betadine soaked adaptic, the dry 4x4 gauze, kerlix and austin dressing. The right ankle pneumatic tourniquet was deflated and there was immediate return of normal perfusion to the right foot with CFT < 2 seconds to all toes. Hemostasis was achieved. The patient tolerated the procedure well and the anesthesia well with no complications. The patient was transported from the operating room to the recovery room with vital signs stable and in good condition. Post operative orders were placed. The patient will be admitted for pain management, and nursing facility placement. Grafts/Implants Used: None Complications None
--- NOTE | 2022-07-03 10:44 | PCM.HP.STD ---
HPI - General General Date of Admission: 07/03/22 Chief Complaint: s/p right foot surgery, right foot pain HPI Narrative AKIL KENNEY, is a 82 F who presents s/p right foot surgery - 1st MTPJ bunionectomy, tailor's bunionectomy, and partial 4th toe amputation. She did well with the surgery. She needs to be admitted for pain control, rehab, and nursing facility placement. [facility] Medical History (Updated 07/03/22 @ 10:[address] Dusty Roy, DPM) Ambulates with cane Depression DVT (deep venous thrombosis) Encounter for screening for COVID-19 Gastric reflux History of echocardiogram History of rectocele History of stress test Lupus Non-smoker Wears dentures Wears glasses Wears hearing aid Home Medications clonazepam 0.5 mg tablet 0.5 mg PO BID anxiety 06/04/17 [History Last Taken 07/03/22] clopidogrel 75 mg tablet 75 mg PO DAILY blood thinner 06/04/17 [History Last Taken 07/02/22] fluticasone propionate 50 mcg/actuation nasal spray,suspension (Allergy Relief (fluticasone)) 2 spray NS BID congestion 06/04/17 [History Last Taken 07/02/22] hydroxychloroquine 200 mg tablet 300 mg PO DAILYCM lupus 06/04/17 [History Last Taken 07/02/22] mirtazapine 15 mg disintegrating tablet (Remeron SolTab) 15 mg PO QHS depression 06/04/17 [History Last Taken 07/02/22] Lactobacillus acidophilus (Acidophilus capsule) 1 ea PO BID probiotic 06/27/17 [History Last Taken 07/02/22] acetaminophen 500 mg tablet (Tylenol Extra Strength) 1,000 mg PO Q8H PRN PRN Pain 06/27/17 [History Last Taken 07/02/22] omeprazole 20 mg capsule,delayed release 20 mg PO DAILY GERD 06/27/17 [History Last Taken 07/03/22] zolpidem 5 mg tablet 5 mg PO QHS sleep 06/27/17 [History Last Taken 07/02/22] citalopram 10 mg tablet 10 mg PO DAILY depression 30 days #30 tabs 09/09/21 [Rx Last Taken 07/03/22] Allergy/AdvReac Type Severity Reaction Status Date / Time codeine AdvReac Other Verified 07/03/22 08:13 morphine AdvReac Other Verified 07/03/22 08:13 Surgical History History of cholecystectomy History of colonoscopy History of coronary artery stent placement History of hysterectomy History of splenectomy Hx of total knee arthroplasty Social History (Updated 09/02/21 @ 20:[address] Nicolas Bajwa MD) household members: none Smoking Status: Never smoker alcohol intake: never substance use type: does not use Vital Signs Vital Signs Vital Signs: 07/03/22 08:16 07/03/22 08:16 Temperature 97.6 F L Temperature Source Temporal Pulse Rate 62 Respiratory Rate 18 Respiratory Pattern Normal Blood Pressure 162/68 H Blood Pressure Mean 99 Blood Pressure Source Monitor Blood Pressure Position Semi-Fowlers Blood Pressure Location Left Arm Pulse Ox 97 Oxygen Delivery Method Room Air Weight Weight: 67.8 kg Body Mass Index (BMI) 25.6 Physical Exam Const alert, oriented x3 and no apparent distress Extremity Extremity Narrative: Dressing right foot is clean, dry and intact, CFT < 2 seconds to all toes on right foot. No strikethrough on right foot dressing. Assessment & Plan Assessment/Plan (1) Other hammer toe(s) (acquired), right foot: (2) Pain in right foot: (3) Hallux valgus (acquired), right foot: (4) Tailor's bunion of right foot: PLAN: Plan Patient is s/p right 1st toe/metatarsal bunionectomy, Tailor's bunionectomy, and partial right 4th toe amputation on 07/03/2022. She will be admitted for post op pain management, rehab, and nursing facility placement. Keep dressing right foot clean, dry and intact. Weightbearing right foot: Ok to put weight on right heel only for transfers, otherwise no weightbearing right foot. Keep right foot elevated. Pain management: Acetaminophen, tramadol. DVT Prophylaxis: Lovenox 40mg subcutaneous once daily starting tomorrow. Patient will need nursing facility placement - patient prefers the TCU. Will consult with hospitalist service.
--- NOTE | 2022-07-03 11:00 | RAD_ITS ---
STUDY: X-RAY - RIGHT FOOT CLINICAL: Female, 82 years old. Post op TECHNIQUE: 3 view(s) of the foot. COMPARISON: None. FINDINGS: Normal talus, calcaneus, and tarsal bones. Normal visualized subtalar, talonavicular, calcaneocuboid, tarsal and tarsometatarsal articulations. The patient is status post resection of the lateral aspect of the distal portion of the fifth metatarsal. Prior bunionectomy. Normal tibial and fibular sesamoid bones. Normal interphalangeal joint of the great toe. Normal phalanges of the great toe. Normal second through fifth metatarsophalangeal joints. Normal interphalangeal joints and phalanges of the lesser toes. Soft tissue changes. RAD/Foot min 3 Views IMPRESSION: Prior bunionectomy with overlying soft tissue changes. Prior partial resection along the lateral aspect of the distal fifth metatarsal Electronically Signed: Nima Sluaghter MD at 12:14 EDT ,
--- NOTE | 2022-07-03 13:00 | CASEMGMT ---
Social Work Eduardo met with pt in room. EDUARDO introduced self and role at the hospital. Pt laying in bed agreeable to discuss discharge planning. A printed list of SNF providers including quality and resources use date that is consistent with patient's preferred geographical region, medical needs, and insurances network were provided via the [employer] Link.?Pt choose [facility] and stated had already called ahead to confirm this. EDUARDO explained all pt's need to be provided an option list and pt voiced understanding. EDUARDO coordinated with Latisha at [facility] for acceptance. Felicia stated pt has eye drop medication that [facility] would not be able to provide. EDUARDO checked with pt and pt reported she no longer uses this eye drop and it would not be an issue. EDUARDO reported back to Felicia. [facility] accepted at [facility]. EDUARDO ordered covid test and reported to Dr. Roy that pt needs fpc discharge order completed before pt can be transferred to TCU. Dr miller. PLAN: TCU [facility]
[2022-07-03] MEDS: oxyCODONE 5 MG Tablet PO (16:12)
[2022-07-03] MEDS: Acetaminophen 325 MG Tablet 650 MG PO (16:12)
--- NOTE | 2022-07-03 16:38 | PCM.TXEXTCAR ---
Diet Diet Order/Speech Therapy: 07/03/22 10:58 Diet: Cardiac - Heart Healthy Wound(s) r foot: Wound Type: Surgical Incision (Keep dressing right foot clean, dry and intact.) Therapies Weight Bearing: Partial weight bearing (Can only put weight on right heel with surgical shoe for transfers, otherwise no weightbearing right foot.) Physical Therapy: Eval and Treat Occupational Therapy: Eval and Treat Problem/Diagnosis (1) Other hammer toe(s) (acquired), right foot: Status: Acute Code(s): M20.41 - Other hammer toe(s) (acquired), right foot (2) Pain in right foot: Status: Acute Code(s): M79.671 - Pain in right foot (3) Hallux valgus (acquired), right foot: Status: Acute Code(s): M20.11 - Hallux valgus (acquired), right foot (4) Tailor's bunion of right foot: Status: Acute Code(s): M21.621 - Bunionette of right foot Plan Patient is s/p right 1st toe/metatarsal bunionectomy, Tailor's bunionectomy, and partial right 4th toe amputation on 07/03/2022. She will be admitted for post op pain management, rehab, and nursing facility placement. Keep dressing right foot clean, dry and intact. Weightbearing right foot: Ok to put weight on right heel only for transfers, otherwise no weightbearing right foot. Keep right foot elevated. Pain management: Acetaminophen, tramadol. DVT Prophylaxis: Lovenox 40mg subcutaneous once daily starting 07/04/2022. Patient will need nursing facility placement - patient prefers the TCU. Will consult with hospitalist service. Allergies/Procedures Done in Hospital Allergies codeine Adverse Reaction (Verified 07/03/22 08:13) Other morphine Adverse Reaction (Verified 07/03/22 08:13) Other Type of Care/Length of Stay Estimated LOS: Convalescent Care Less Than 30 days Type of Care Needed: Skilled Rehab Potential: Good Prognosis: Good Additional Orders/Day of Discharge Day of Discharge: 07/03/22 Follow Up Care Please Follow Up With: Dusty Roy DPM When: Will see patient in TCU, call sooner if needed. Discharge Plan Admission Admit Date/Time: 07/03/22 10:50 Attending Provider: Dusty Roy Primary Care Provider: Cleveland Becerra Consulting Providers: Ragini Peralta ; Juvencio Toribio ; Jocelyn Jaramillo ; Michelle Leal ; Gladys Arambula PLANT ECOLOGIST ; Jaylen Stauffer PLANT ECOLOGIST ; Vane Horner Discharge Orders/Prescriptions Prescriptions: New oxycodone 5 mg Tablet 5 mg PO Q4H PRN PRN (Reason: Pain Score 4-10) 4 Days Qty: 14 0RF enoxaparin 40 mg/0.4 mL Syringe 40 mg subcut DAILY 7 Days Qty: 0 0RF Continued clonazepam 0.5 MG tablet 0.5 mg PO BID clopidogrel 75 MG tablet 75 mg PO DAILY Label Comments: pt states will stop on 08/24/21 for surgery on 09/01/[address] Kam instructions hydroxychloroquine 200 MG tablet 300 mg PO DAILYCM mirtazapine [Remeron SolTab] 15 MG tablet,disintegrating 15 mg PO QHS fluticasone propionate [Allergy Relief (fluticasone)] 15.8 ML spray,suspension 2 spray NS BID omeprazole 20 MG capsule 20 mg PO DAILY Acidophilus 1 EACH capsule 1 ea PO BID zolpidem 5 MG tablet 5 mg PO QHS acetaminophen [Tylenol Extra Strength] 500 MG tablet 1,000 mg PO Q8H PRN PRN (Reason: Pain) citalopram 10 MG tablet 10 mg PO DAILY 30 Days Qty: 30 0RF Referrals / Follow Up: Cleveland Becerra MD [Primary Care Provider] - Disposition Discharge Orders: Discharge Patient (Routine); Ordered 07/03/22 Ordered By: Dr. Dusty Roy
--- NOTE | 2022-07-03 16:56 | NURSING ---
ATTEMPTED TO CALL REPORT, GEOFFREY IS ON [facility] AND WILL HAVE HER CALL BACK
--- NOTE | 2022-07-03 18:48 | NURSING ---
REPORT CALLED TO GEOFFREY IN TCU, PT WILL GO TO ROOM 20
== END 2022-07-03 18:50 | disposition skilled nursing facility (03) ==
LOC: SDC 10:59 → MS3 11:56
PROVIDERS: Admitting Provider Podiatrist; PCP Family Medicine; Visit Provider Podiatrist
PROC: (CPT 28292; principal; 2022-07-03 09:00)
DX: M20.11 Hallux valgus (acquired), right foot (principal); M32.9 Systemic lupus erythematosus, unspecified; Z79.899 Other long term (current) drug therapy; Z79.02 Long term (current) use of antithrombotics/antiplatelets; F41.9 Anxiety disorder, unspecified; I25.10 Atherosclerotic heart disease of native coronary artery without angina pectoris; F32.A Depression, unspecified; K21.9 Gastro-esophageal reflux disease without esophagitis; Z86.718 Personal history of other venous thrombosis and embolism
CPT/HCPCS: 28292; 01480; 73630; 73660; 76000; 87426; 88304; 88305; 88311; 99218; J7120; G0378; J2405

== ENCOUNTER 2022-07-03 19:21 | Inpatient (IN) | payer MEDICARE, OTHER, SELFPAY ==
[2022-07-03 19:30] VITALS: BP 128/50; PULSE 63; PULSE 64; RESP 16; TEMP 37.4; O2SAT 94; BMI 25.8
--- NOTE | 2022-07-03 20:08 | HP.PCM_ITS ---
[facility] - General General Date of Admission: 07/03/22 Date of Service: 07/03/22 Chief Complaint: Here for rehab. [facility] Narrative AKIL KENNEY, is a 82 Female who presents with followin07/03/2022 Dr. Roy perfomed 1st toe/metatarsal bunionectomy, right foot. Tailor's bunionectomy right foot, partial right 4th toe amputation. 07/03/2022 Admit to TCU with debility, here for rehabilitation, strengthening, prior to discharge home alone. [facility] Medical History (Updated 07/03/22 @ 20:[address] Nicolas Bajwa MD) Ambulates with cane Depression DVT (deep venous thrombosis) Encounter for screening for COVID-19 Gastric reflux History of echocardiogram History of rectocele History of stress test Lupus Non-smoker Wears dentures Wears glasses Wears hearing aid Home Medications clonazepam 0.5 mg tablet 0.5 mg PO BID anxiety 06/04/17 [History Last Taken 07/03/22] clopidogrel 75 mg tablet 75 mg PO DAILY blood thinner 06/04/17 [History Last Taken 07/02/22] fluticasone propionate 50 mcg/actuation nasal spray,suspension (Allergy Relief (fluticasone)) 2 spray NS BID congestion 06/04/17 [History Last Taken 07/02/22] hydroxychloroquine 200 mg tablet 300 mg PO DAILYCM lupus 06/04/17 [History Last Taken 07/02/22] mirtazapine 15 mg disintegrating tablet (Remeron SolTab) 15 mg PO QHS depression 06/04/17 [History Last Taken 07/02/22] Lactobacillus acidophilus (Acidophilus capsule) 1 ea PO BID probiotic 06/27/17 [History Last Taken 07/02/22] acetaminophen 500 mg tablet (Tylenol Extra Strength) 1,000 mg PO Q8H PRN PRN Pain 06/27/17 [History Last Taken 07/02/22] omeprazole 20 mg capsule,delayed release 20 mg PO DAILY GERD 06/27/17 [History Last Taken 07/03/22] zolpidem 5 mg tablet 5 mg PO QHS sleep 06/27/17 [History Last Taken 07/02/22] citalopram 10 mg tablet 10 mg PO DAILY depression 30 days #30 tabs 09/09/21 [Rx Last Taken 07/03/22] enoxaparin 40 mg/0.4 mL subcutaneous syringe 40 mg subcut DAILY blood thinner 07/03/22 [History Last Taken Unknown] oxycodone 5 mg tablet 5 mg PO Q4H PRN PRN Pain Score 4-10 4 days #14 tabs 07/03/22 [Rx Last Taken Unknown] Allergy/AdvReac Type Severity Reaction Status Date / Time codeine AdvReac Other Verified 07/03/22 08:13 morphine AdvReac Other Verified 07/03/22 08:13 Surgical History (Updated 07/03/22 @ 20:[address] Nicolas Bajwa MD) History of bunionectomy of right great toe History of cholecystectomy History of colonoscopy History of coronary artery stent placement History of hysterectomy History of splenectomy Hx of total knee arthroplasty Social History household members: none Smoking Status: Never smoker alcohol intake: never substance use type: does not use ROS Constitutional Constitutional: Denies chills, fever(s) or weight gain ENT HEENT: Denies headache(s), nasal congestion or nasal discharge Cardiovascular Cardiovascular: Denies chest pain or palpitations Respiratory/Chest Respiratory/Chest: Denies cough, excessive phlegm production or shortness of breath with exertion Gastrointestinal Gastrointestinal: Denies abdominal pain, nausea or vomiting Genitourinary Genitourinary: Denies dysuria Musculoskeletal Musculoskeletal: Denies joint pain or joint swelling Integumentary Integumentary: Denies rash or wounds Neurologic Neurologic: Denies focal weakness, numbness or tingling Psychiatric Psychiatric: Denies anxiety, auditory hallucinations, depression, homicidal ideation or suicidal ideation Vital Signs Vital Signs Vital Signs: 07/03/22 19:30 Temperature 99.3 F H Temperature Source Temporal Pulse Rate 63 Respiratory Rate 16 Blood Pressure 128/50 H Blood Pressure Mean 76 Blood Pressure Source Monitor Blood Pressure Position Semi-Fowlers Blood Pressure Location Right Arm Pulse Ox 94 Oxygen Delivery Method Room Air Weight Weight: 69.428 kg Body Mass Index (BMI) 25.8 Physical Exam Const alert General Appearance: cooperative HEENT normocephalic Eyes PERRL and EOMs intact bilaterally Neck supple, no JVD and no carotid bruits Resp normal respiratory effort, normal air movement and clear to auscultation bilaterally Cardio regular rate and regular rhythm GI normal to inspection, nondistended, normoactive bowel sounds, non-tender and non-distended Extremity normal capillary refill General Extremity: Negative for edema Skin no rashes or lesions noted General Skin Exam: no breakdown Psych affect normal Appearance: appropriate Assessment & Plan Assessment/Plan (1) Debility: (2) Tailor's bunion of right foot: (3) Other hammer toe(s) (acquired), right foot: (4) Depression: (5) Gastroesophageal reflux disease: (6) Allergic rhinitis: (7) Hypertension: (8) Insomnia: (9) Anxiety: (10) Appetite loss: (11) Coronary artery disease: PLAN: Plan 82 year old female with below past medical history hospitalized for 1st toe/metatarsal bunionectomy, right foot; Tailor's bunionectomy, right foot; 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 Roy, admitted to TCU with debility, here for rehabilitation, strengthening, prior to discharge home alone. * Debility - PT/OT. * Pain - Tylenol 1000mg q6h prn pain (1-3), Oxycodone 5mg q4h prn pain (4-10). * Bowel - Miralax 17gm daily, senna/colace 1 tablet bid, Dulcolax 10mg daily prn. * Adult immunization - Administer pneumonia vaccine, covid19 vaccine, flu vaccine, as appropriate. * DVT prophylaxis - Lovenox 40mg sc daily. * Depression - Citalopram 10mg daily, stable chronic chcf use, GDR not recommended. * Anxiety - Clonazepam 0.5mg bid, stable chronic chcf use, GDR not recommended. * Coronary Artery Disease - Plavix 75mg daily. * Allergic rhinitis - Flonase 2 sprays nasal bid. * Osteoarthritis - Plaquenil 300mg daily. * GI prophylaxis - Lactobacillus 1 tablet bid. 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 * GERD - Omeprazole 20mg daily. 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
[2022-07-03] MEDS: oxyCODONE 5 MG Tablet PO (20:46)
--- NOTE | 2022-07-03 22:00 | NURSING ---
RN x2 (this nurse and JOHN Santacruz) verified patient request for DNRCC-A no intubation. Patient presents as alert and oriented to person/place/time/situation.
[2022-07-03] MEDS: Mirtazapine 15 MG Tablet PO (22:59)
[2022-07-03] MEDS: Zolpidem Tartrate 5 MG Tablet PO (22:59)
[2022-07-03] MEDS: oxyCODONE 5 MG Tablet 10 MG PO (23:03)
--- NOTE | 2022-07-03 23:39 | NURSING ---
07/03/22 @ 2200- Discussed code status options with patient in depth. RN x2 (this nurse and April RN) verified patient request for DNRCC-A no intubation. Patient presents as alert and oriented to person/place/time/situation. Discussed with Dr. Bajwa who gave verbal order for DNRCCA- no intubation.
[2022-07-04] MEDS: Acetaminophen 500 MG Tablet 1000 MG PO ×4 (00:08→22:51)
[2022-07-04] MEDS: Glycerin/Hypromellose/PEG400 15 ml Bottle 1 DRP EACH EYE (00:11)
[2022-07-04] MEDS: oxyCODONE 5 MG Tablet 10 MG PO ×3 (03:03→22:52)
[2022-07-04] MEDS: Fluticasone 0.05% 1 SPRAY NASAL.SRY 2 SPRAY NASAL ×2 (05:13→17:38)
[2022-07-04] MEDS: Citalopram 10 MG Tablet PO (05:15)
[2022-07-04] MEDS: Enoxaparin 40 MG/0.4 ML Syringe SC (05:16)
[2022-07-04] MEDS: Clopidogrel Bisulfate 75 MG Tablet PO (05:16)
[2022-07-04] MEDS: Pantoprazole Sodium 20 MG Tablet PO (05:17)
[2022-07-04] MEDS: clonazePAM 0.5 MG Tablet PO ×2 (05:19→17:38)
[2022-07-04 07:29] LABS: Absolute Lymphocyte Count 1.86 X10^3/uL (0.83-4.51); Absolute Neutrophil Count 5.7 X10^3/uL (2.0-7.7); Basophil# 0.03 X10^3/uL; Basophil% 0.3 % (0-1); Eosinophil# 0.02 X10^3/uL; Eosinophils% 0.2 % (0-5); Hemoglobin 11.1 g/dL (12.0-15.0); Lymphocyte # 1.86 X10^3/ul (0.83-4.51); Lymphocyte % 20.6 % (19-41); Mean Corp Hgb Conc 32.6 g/dL (32-36); Monocyte# 1.35 X10^3/uL; NRBC Flagged by Analyzer 0 % (0-5); Neutrophil # 5.73 X10^3/uL (2.7-7.7); Neutrophil % 63.6 % (47-70); Platelet Count 207 K/mm3 (150-450); RBC Distribution Width CV 14.3 % (11.6-14.6); RBC Distribution Width SD 49.7 fl (35.1-43.9); Red Blood Count 3.58 M/mm3 (4.2-5.4)
[2022-07-04 07:52] LABS: Anion Gap 6 (5-15); BUN 21 mg/dL (7-18); BUN/Creat Ratio 23.4 RATIO (10-20); Chloride 100 mmol/L (98-107); EST Glomerular Filtration Rate 64 mL/min (>60); Est Glom Filt Rate - Afr Amer 77 mL/min (>60); Glucose 110 mg/dL (74-106); Potassium 4.1 mmol/L (3.5-5.1); Sodium Level 134 mmol/L (136-145)
[2022-07-04] MEDS: Hydroxychloroquine 200 MG Tablet 300 MG PO (08:13)
[2022-07-04] MEDS: Tuberculin,Purif.prot.deriv. 50 TU/ML Vial 0.1 ML ID (08:15)
[2022-07-04 15:15] VITALS: BP 129/52; PULSE 53; RESP 14; TEMP 36.4; O2SAT 92
[2022-07-04] MEDS: Senna/Docusate Sodium 1 Tablet PO (17:38)
[2022-07-04] MEDS: Juven (unflavored) Packet 1 PACKET PO (18:26)
[2022-07-04] MEDS: Mirtazapine 15 MG Tablet PO (21:27)
[2022-07-04] MEDS: Zolpidem Tartrate 5 MG Tablet PO (22:51)
[2022-07-04 23:04] VITALS: PULSE 64; RESP 18; O2SAT 93
[2022-07-05] MEDS: Polyethylene Glycol 3350 17 GM PACKET PO (05:43)
[2022-07-05] MEDS: Enoxaparin 40 MG/0.4 ML Syringe SC (05:43)
[2022-07-05] MEDS: clonazePAM 0.5 MG Tablet PO ×2 (05:43→17:00)
[2022-07-05] MEDS: Senna/Docusate Sodium 1 Tablet PO ×2 (05:44→16:58)
[2022-07-05] MEDS: Pantoprazole Sodium 20 MG Tablet PO (05:44)
[2022-07-05] MEDS: Citalopram 10 MG Tablet PO (05:44)
[2022-07-05] MEDS: Clopidogrel Bisulfate 75 MG Tablet PO (05:44)
[2022-07-05] MEDS: Fluticasone 0.05% 1 SPRAY NASAL.SRY 2 SPRAY NASAL ×2 (05:46→16:56)
[2022-07-05] MEDS: Hydroxychloroquine 200 MG Tablet 300 MG PO (08:09)
[2022-07-05] MEDS: Juven (unflavored) Packet 1 PACKET PO ×2 (08:13→16:56)
[2022-07-05] MEDS: Acetaminophen 500 MG Tablet 1000 MG PO ×3 (08:44→22:40)
[2022-07-05] MEDS: oxyCODONE 5 MG Tablet 10 MG PO ×3 (08:44→22:41)
[2022-07-05 10:00] VITALS: PULSE 55; RESP 14; O2SAT 92
[2022-07-05 15:22] VITALS: BP 118/50; PULSE 55; RESP 14; TEMP 36.6; O2SAT 92
[2022-07-05] MEDS: Mirtazapine 15 MG Tablet PO (22:40)
[2022-07-05] MEDS: Zolpidem Tartrate 5 MG Tablet PO (22:40)
[2022-07-06] MEDS: Enoxaparin 40 MG/0.4 ML Syringe SC (05:28)
[2022-07-06] MEDS: Polyethylene Glycol 3350 17 GM PACKET PO (05:28)
[2022-07-06] MEDS: Clopidogrel Bisulfate 75 MG Tablet PO (05:28)
[2022-07-06] MEDS: Senna/Docusate Sodium 1 Tablet PO ×2 (05:28→18:08)
[2022-07-06] MEDS: clonazePAM 0.5 MG Tablet PO ×2 (05:28→18:08)
[2022-07-06] MEDS: Citalopram 10 MG Tablet PO (05:28)
[2022-07-06] MEDS: Pantoprazole Sodium 20 MG Tablet PO (05:28)
[2022-07-06] MEDS: Fluticasone 0.05% 1 SPRAY NASAL.SRY 2 SPRAY NASAL ×2 (05:29→18:09)
[2022-07-06] MEDS: Juven (unflavored) Packet 1 PACKET PO ×2 (07:56→18:08)
[2022-07-06] MEDS: Hydroxychloroquine 200 MG Tablet 300 MG PO (07:57)
[2022-07-06] MEDS: oxyCODONE 5 MG Tablet 10 MG PO ×2 (10:53→22:04)
[2022-07-06] MEDS: Acetaminophen 500 MG Tablet 1000 MG PO (10:54)
--- NOTE | 2022-07-06 14:14 | PHA.CONS_ITS ---
TCU RX Drug Regimen Review Subjective: 82 YOF admitted to TCU for rehabilitation. Patient is S/P partial toe amputation. Here for rehabilitation and strengthening prior to discharge home where she lives alone. Objective: Allergies codeine Adverse Reaction (Verified 07/03/22 08:13) Other morphine Adverse Reaction (Verified 07/03/22 08:13) Other Current Medications Generic Name Dose Route Start Last Admin Trade Name Freq PRN Reason Stop Dose Admin Acetaminophen 1,000 mg 07/03/22 20:34 07/06/22 10:54 Acetaminophen 500 Mg Tablet PO 1,000 mg Q6H PRN PRN Administration Pain Score 1-3 Bisacodyl 10 mg 07/03/22 20:31 Bisacodyl 5 Mg Tablet PO DAILY PRN Constipation Citalopram Hydrobromide 10 mg 07/04/22 06:00 07/06/22 05:28 Citalopram 10 Mg Tablet PO 08/03/22 06:01 10 mg DAILY AVANI Administration Clonazepam 0.5 mg 07/04/22 06:00 07/06/22 05:28 Clonazepam 0.5 Mg Tablet PO 0.5 mg BID AVANI Administration Clopidogrel Bisulfate 75 mg 07/04/22 06:00 07/06/22 05:28 Clopidogrel Bisulfate 75 Mg Tablet PO 75 mg DAILY AVANI Administration Enoxaparin Sodium 40 mg 07/04/22 06:00 07/06/22 05:28 Enoxaparin 40 Mg/0.4 Ml Syringe SC 07/11/22 06:01 40 mg DAILY AVANI Administration Fluticasone Propionate 2 spray 07/04/22 06:00 07/06/22 05:29 Fluticasone 0.05% 1 [place] Nasal.Sry NASAL 2 spray BID AVANI Administration Glycerin/Hypromellose/Polyethylene 1 drp 07/03/22 22:17 07/04/22 00:11 Glycerin/Hypromellose/[id number] 15 Ml Bottle EACH EYE 1 drp Q1H PRN PRN Administration DRY EYES Hydroxychloroquine Sulfate 300 mg 07/04/22 08:00 07/06/22 07:57 Hydroxychloroquine 200 Mg Tablet PO 300 mg DAILYCM AVANI Administration Sodium Chloride 250 mls @ 15 mls/hr 07/03/22 19:30 IV .[id number] PRN Saline Flush Sodium Chloride 250 mls @ 15 mls/hr 07/03/22 19:30 IV .[id number] PRN Additional IVPB Infusion Sodium Chloride 250 mls @ 15 mls/hr 07/03/22 20:20 IV .[id number] PRN Saline Flush Sodium Chloride 250 mls @ 15 mls/hr 07/03/22 20:20 IV .[id number] PRN Additional IVPB Infusion L-Arginine/L-Glutamine/Calcium HMB 1 packet 07/04/22 17:00 07/06/22 07:56 Nando (Unflavored) Packet PO 1 packet BIDCM AVANI Administration Lactobacillus Acidophilus 1 tablet 07/04/22 06:00 07/06/22 05:28 Lactobacillus Acidophilus PO 1 tablet BID AVANI Administration Mirtazapine 15 mg 07/03/22 22:00 07/05/22 22:40 Mirtazapine 15 Mg Tablet PO 15 mg QHS AVANI Administration Oxycodone HCl 10 mg 07/03/22 22:18 07/06/22 10:53 Oxycodone 5 Mg Tablet PO 10 mg Q4H PRN PRN Administration Pain Score 4-10 Pantoprazole Sodium 20 mg 07/04/22 06:00 07/06/22 05:28 Pantoprazole Sodium 20 Mg Tablet PO 20 mg DAILY AVANI Administration Polyethylene Glycol 17 gm 07/04/22 06:00 07/06/22 05:28 Polyethylene Glycol 3350 17 Gm Packet PO 17 gm DAILY AVANI Administration Senna/Docusate Sodium 1 tablet 07/03/22 20:45 07/06/22 05:28 Senna/Docusate Sodium 1 Tablet PO 1 tablet BID AVANI Administration Sodium Chloride 10 - 40 ml 07/03/22 19:30 0.9% Saline Lock 10 Ml Syringe IV UD PRN SALINE FLUSH Sodium Chloride 10 - 40 ml 07/03/22 20:20 0.9% Saline Lock 10 Ml Syringe IV UD PRN SALINE FLUSH Tuberculin PPD 0.1 ml 07/11/22 10:00 Tuberculin,Purif.Prot.Deriv. 50 Tu/Ml Vial ID 07/11/22 10:01 X1 ONE Zolpidem Tartrate 5 mg 07/03/22 22:00 07/05/22 22:40 Zolpidem Tartrate 5 Mg Tablet PO 5 mg QHS AVANI Administration Problem List (Last Reviewed 07/03/22 @ 23:45 by Neeta Barth) Coronary artery disease (Acute) Appetite loss (Acute) Anxiety (Acute) Insomnia (Acute) Hypertension (Chronic) Allergic rhinitis (Acute) Gastroesophageal reflux disease (Acute) Depression (Acute) Debility (Acute) Tailor's bunion of right foot (Acute) Other hammer toe(s) (acquired), right foot (Acute) Vital Signs Temp Pulse Resp BP Pulse Ox O2 Del Method 97.8 F 55 L 14 118/50 L 92 Room Air 07/05/22 15:22 07/05/22 15:22 07/05/22 15:22 07/05/22 15:22 07/05/22 15:22 07/05/22 15:22 Oxygen Delivery Method Room Air Weight: 69.428 kg Body Mass Index (BMI) 25.8 Sodium 134 mmol/L (136-145) L 07/04/22 06:34 Potassium 4.1 mmol/L (3.5-5.1) 07/04/22 06:34 Chloride 100 mmol/L (98-107) 07/04/22 06:34 Carbon Dioxide 28.0 mmol/L (21.0-32.0) 07/04/22 06:34 Anion Gap 6 (5-15) 07/04/22 06:34 BUN 21 mg/dL (7-18) H 07/04/22 06:34 Creatinine 0.90 mg/dL (0.55-1.02) 07/04/22 06:34 Est GFR (MDRD) Af Amer 77 mL/min (>60) 07/04/22 06:34 Est GFR (MDRD) Non-Af 64 mL/min (>60) 07/04/22 06:34 BUN/Creatinine Ratio 23.4 RATIO (10-20) H 07/04/22 06:34 Glucose 110 mg/dL (74-106) H 07/04/22 06:34 Assessment/Plan: 1. Pain: Tylenol 1000mg PO Q6h PRN Pain 1-3, Oxycodone 10mg PO Q4h PRN Pain 4- 10. Please continue to monitor for increased/decreased pain, PRN medication u charles, respiratory depression, oversedation with narcotic use. -The patient has utilized 8 doses of Tylenol and 8 doses of Oxycodone since 07/03. The patient reports a pain of 5-7/10 pre-medication and 2-3/10 post medication administration. Of note, pt had oxycodone dose increased from 5mg to 10mg Q4h PRN, which appears to be helping manage pain control better. Please continue to monitor for acute changes in pain management. 2. CAD: Plavix 75mg PO Daily. Please continue to monitor for S/S bleeding/bruising, H/H (Hgb 11.1 and Hct 34 on 07/04). 3. Arthritis: Plaquenil 300mg PO Daily. Please continue to monitor hepatic enzymes, progression of disease, suicidal ideations. 4. DVT Prophylaxis: Lovenox 40mg SC Daily. Please continue to monitor for S/S bleeding/bruising, renal function (CrCl 40 mL/min on 07/04), H/H (stable). 5. GERD: Protonix 20mg PO Daily. Please continue to monitor for bloating, gas, stomach upset. May also encourage non-pharmacologic treatments to help minimize flare-ups/exacerbations. 6. Allergic Rhinitis/ Dry Eye: Flonase 2 spray BID, Artificial Tears 1 gtt Each Eye PRN. Please continue to monitor for improvement in allergy symptoms, medication effectiveness, PRN medication use. 7. General Wellness: Acidophilus 1 cap PO BID. Please continue to monitor 8. Bowel: Miralax 17g PO Daily, Senna/Docusate 1 tab PO BID, Dulcolax 10mg PO Daily PRN. Please continue to monitor for increased/ decreased constipation and/or diarrhea. The patient has had 1 bowel movement (on 07/05) since admission. Assessment/Plan for indications treated with psychotropic medications: 9. Depression: Citalopram 10mg PO Daily. This is a Beer's Criteria medication which can impair motor function and increase the risk of falls in the elderly. Please evaluate risk vs. Benefit of use and consider a GDR if clinically indicated, thank you. 10. Anxiety: Klonopin 0.5mg PO BID. This is a Beer's Criteria medication which can increase the risk of falls, delirium, and impaired motor function in the elderly. Please evaluate the risk vs. benefit of use given multiple other medications that can increase the risk. Consider a GDR/ stop date if clinically indicated, thank you. 11. Insomnia: Ambien 5mg PO QHS. Please continue to monitor for medication effectiveness, excessive sedation given benzodiazepine use. This is a Beer's Criteria medication which can increase the risk of falls and hallucinations in the elderly, continue to monitor and weigh risk vs. benefit with use. Please consider a GDR if clinically indicated, thank you. 12. Appetite Loss: Remeron 15mg PO QHS. Please continue to monitor for medication effectiveness. This is a Beer's criteria medication which can lower the serum sodium levels. Current serum sodium level is 134 (07/04/22), please co ntinue to monitor closely. Please consider a GDR if clinically indicated, thank you. Medical chart and medication regimen reviewed. The following medication irregularities or issues were identified: 1. Falls/ Fractures/ Impaired Motor function: The patient is on several medications which can increase the risk of the previous side effects listed (Ambien, Klonopin, Citalopram, Oxycodone). Due to the multiple medications, this can significantly increase the patient's risk. Please evaluate medications to see if the risk vs. benefit of being on all the listed medications. Can consider a GDR on medications if clinically indicated, thank you. Date of Note:: 07/06/22
[2022-07-06 14:37] VITALS: BP 148/49; PULSE 78; RESP 16; TEMP 37.6; O2SAT 94
--- NOTE | 2022-07-06 14:57 | CASEMGMT ---
Social Work Met with patient to complete initial assessment. Pt known to this worker from previous stay. Verified contacts. Discussed code status and MOLST form. Pt confirmed DNR-CCA, no intubation. MOLST completed, placed in DR. folder. Pt agreed to have children bring in copies of advanced directives. Educated to Medicare benefit. Encouraged to contact secondary insurance to ensure copay coverage. Pts goal is to return home alone. Pt states both of her daughters outreach worker and could potentially help her at home since she will be PWBS for some time. SW to continue to follow for DC planning. Mirta Mason, RETAIL COVERAGE MERCHANDISER LEAD DOCTOR OF NATUROPATHIC MEDICINE
--- NOTE | 2022-07-06 16:43 | CHAPLAIN ---
Type of Pastoral Visit _x__ Initial Visit ___ Follow-up Visit ___ On-call Visit ___ General Patient Visit ___ Spiritual Assessment ___ Family Conference ___ Bereavement ___ Rapid Response ___ Code Blue ___ Other (describe below) Pastoral Care Referral From _x__ Patient ___ Family ___ Nurse ___ Physician ___ Marine Radio Installer And Servicer ___ Physician Relations Specialist ___ Other (describe below) Sacrament/Intervention _x__ Active listening ___ Anointing ___ Caodaism ___ Bereavement ___ Communion _x__ Elsy exploration ___ _x__ Life review _x__ Prayer ___ Reconciliation ___ Sacrament of Sick _x__ Supportive presence ___ Wedding ___ Other (describe below) Pastoral Comments patient and significant other are in the room watching baseball; talk of baseball opens other conversation; pt explains her surgery and recovery; pt also has concerns for a son with stage four cancer and asks for prayer; pt had been long time member of a [employer] temple but has switched to a more local [employer] temple and is content with that; prayer and presence welcomed
--- NOTE | 2022-07-06 21:02 | NURSING ---
PRESENTS IN BED, WATCHING TELEVISION. A&OX3. OFFERED HS MEDICATIONS AT THIS TIME, PATIENT STATES PREFERS ALL HS MEDICATIONS AT 10PM.
[2022-07-06] MEDS: Zolpidem Tartrate 5 MG Tablet PO (22:04)
[2022-07-06] MEDS: Mirtazapine 15 MG Tablet PO (22:05)
[2022-07-07] MEDS: clonazePAM 0.5 MG Tablet PO ×2 (06:01→17:07)
[2022-07-07] MEDS: Fluticasone 0.05% 1 SPRAY NASAL.SRY 2 SPRAY NASAL ×2 (06:02→17:05)
[2022-07-07] MEDS: Enoxaparin 40 MG/0.4 ML Syringe SC (06:03)
[2022-07-07] MEDS: Clopidogrel Bisulfate 75 MG Tablet PO (06:03)
[2022-07-07] MEDS: Citalopram 10 MG Tablet PO (06:03)
[2022-07-07] MEDS: Pantoprazole Sodium 20 MG Tablet PO (06:03)
[2022-07-07] MEDS: Senna/Docusate Sodium 1 Tablet PO ×2 (06:04→17:04)
[2022-07-07] MEDS: Polyethylene Glycol 3350 17 GM PACKET PO (06:04)
[2022-07-07] MEDS: Juven (unflavored) Packet 1 PACKET PO ×2 (08:03→17:04)
[2022-07-07] MEDS: Hydroxychloroquine 200 MG Tablet 300 MG PO (08:03)
[2022-07-07] MEDS: Acetaminophen 500 MG Tablet 1000 MG PO ×2 (14:08→22:11)
[2022-07-07 14:17] VITALS: BP 142/42; PULSE 62; RESP 16; TEMP 35.8; O2SAT 94
--- NOTE | 2022-07-07 14:36 | WOUNDNOTE ---
wound photo: right medial foot
--- NOTE | 2022-07-07 14:37 | WOUNDNOTE ---
wound photo: right foot
--- NOTE | 2022-07-07 14:45 | CASEMGMT ---
Social Work IDT met with patient and dtr for care plan meeting. Discussed patient's progress in PT/OT/SN. Educated to Medicare benefit. Encouraged to contact secondary insurance to ensure copay coverage. Pt is PWBS and is having difficulty maintaining. However, pt is antsy about returning home. Dtr expressed pt historically is noncompliant with dr orders, i.e. WBS, using a device, etc. Per dtr, Dr. Roy recommended about 2 weeks in TCU for recovery and pt told him only one. Dr. Roy is scheduled to visit pt 07/09 and discuss DC with pt. IDT recommending continued TCU stay as pt does not have assistance at home. Recommended w/c level at home and only SPT. Pt denied wanting a w/c. Therapy provided education on maintaining WBS and using w/c. SW offered to order w/c and HHC to continue with therapy. Pt agreed and wants to see outcome of Dr. Roy visit. SW to continue to follow. Mirta Mason, DATA TECHNICAL LEAD AUTOMATIC TIRE TESTER
[2022-07-07 20:50] VITALS: PULSE 55; RESP 16; O2SAT 92
[2022-07-07] MEDS: Zolpidem Tartrate 5 MG Tablet PO (22:11)
[2022-07-07] MEDS: Mirtazapine 15 MG Tablet PO (22:11)
[2022-07-08] MEDS: Fluticasone 0.05% 1 SPRAY NASAL.SRY 2 SPRAY NASAL ×2 (06:42→18:34)
[2022-07-08] MEDS: Polyethylene Glycol 3350 17 GM PACKET PO (06:42)
[2022-07-08] MEDS: clonazePAM 0.5 MG Tablet PO ×2 (06:43→18:34)
[2022-07-08] MEDS: Pantoprazole Sodium 20 MG Tablet PO (06:43)
[2022-07-08] MEDS: Citalopram 10 MG Tablet PO (06:44)
[2022-07-08] MEDS: Clopidogrel Bisulfate 75 MG Tablet PO (06:44)
[2022-07-08] MEDS: Senna/Docusate Sodium 1 Tablet PO (06:44)
[2022-07-08] MEDS: Enoxaparin 40 MG/0.4 ML Syringe SC (06:44)
[2022-07-08] MEDS: Juven (unflavored) Packet 1 PACKET PO ×2 (08:14→18:35)
[2022-07-08] MEDS: Hydroxychloroquine 200 MG Tablet 300 MG PO (08:14)
[2022-07-08] MEDS: Acetaminophen 500 MG Tablet 1000 MG PO ×2 (08:16→22:12)
[2022-07-08 10:16] VITALS: PULSE 56; O2SAT 92
--- NOTE | 2022-07-08 10:24 | NURSING ---
dressing changed to RT foot, pt asked for more padding on bottom. 2 ABD's used instead of one. pleasant and cooperative with care.
[2022-07-08 16:00] VITALS: BP 129/51; PULSE 58; RESP 17; TEMP 35.9; O2SAT 95
[2022-07-08 16:29] VITALS: BP 129/51; PULSE 58; RESP 17; TEMP 35.9; O2SAT 95
[2022-07-08] MEDS: Zolpidem Tartrate 5 MG Tablet PO (22:10)
[2022-07-08] MEDS: Mirtazapine 15 MG Tablet PO (22:10)
[2022-07-09] MEDS: Enoxaparin 40 MG/0.4 ML Syringe SC (05:23)
[2022-07-09] MEDS: Citalopram 10 MG Tablet PO (05:23)
[2022-07-09] MEDS: Senna/Docusate Sodium 1 Tablet PO (05:23)
[2022-07-09] MEDS: Clopidogrel Bisulfate 75 MG Tablet PO (05:23)
[2022-07-09] MEDS: Pantoprazole Sodium 20 MG Tablet PO (05:23)
[2022-07-09] MEDS: clonazePAM 0.5 MG Tablet PO ×2 (05:23→17:46)
[2022-07-09] MEDS: Polyethylene Glycol 3350 17 GM PACKET PO (05:23)
[2022-07-09] MEDS: Fluticasone 0.05% 1 SPRAY NASAL.SRY 2 SPRAY NASAL ×2 (05:29→17:40)
[2022-07-09] MEDS: Hydroxychloroquine 200 MG Tablet 300 MG PO (07:50)
[2022-07-09] MEDS: Juven (unflavored) Packet 1 PACKET PO ×2 (07:56→17:40)
[2022-07-09] MEDS: Acetaminophen 500 MG Tablet 1000 MG PO ×2 (08:46→22:05)
[2022-07-09] MEDS: Pneumococcal Vaccine 20 Valent 0.5 ML Syringe IM (10:00)
--- NOTE | 2022-07-09 13:19 | PN_ITS ---
Subjective Subjective Patient was seen today for follow up on right foot s/p surgery. She relates to minimal to no pain. She relates she believes she is doing well, and would like to go home. No complaints of fever, chills, nausea or vomiting. No complaints of SOB, chest pain or calf pain. Objective Data Objective Data Vital Signs: Vital Signs Temp Pulse Resp BP Pulse Ox O2 Del Method 96.7 F L 58 L 17 129/51 H 95 Room Air 07/08/22 16:29 07/08/22 16:29 07/08/22 16:29 07/08/22 16:29 07/08/22 16:29 07/08/22 16:29 Oxygen Delivery Method Room Air Weight: 69.428 kg Body Mass Index (BMI) 25.8 Intake & Output: Intake and Output for Last 24 Hours 07/07/22 07/08/22 07/09/22 23:59 23:59 23:59 Intake Total 360 / 360 600 / 600 360 / 360 Balance 360 / 360 600 / 600 360 / 360 Lab / Micro Data Result Diagrams: 07/04/22 06:34 07/04/22 06:34 Physical Exam Const alert, oriented x3 and no apparent distress Extremity Extremity Narrative: Right foot: Incision sites well coapted with intact sutures, no dehiscence, no cellulitis, no fluctuance, no crepitus, no visible abscess, no streaking, no ne crosis present; no evidence of infection, there is some ecchymosis and localized edema c/w normal post op course, CFT < 2 seconds to the toes on the right foot with normal temperature present, no evidence of compartment syndrome or complication at this time. Assessment & Plan Assessment/Plan (1) Hallux valgus (acquired), right foot: (2) Tailor's bunion of right foot: (3) Other hammer toe(s) (acquired), right foot: PLAN: Plan Right foot was checked. It is healing well. No evidence of infection. Continue with dressing changes - betadine soln to incision sites with overlying gauze, kerlix and aust[place] dressing. Ok to weightbear on right heel with assistance of surgical shoe and walker. Keep right foot elevated. I will follow up with patient on Wednesday and if continues to do well at that time will likely be ok to discharge home from podiatry standpoint.
--- NOTE | 2022-07-09 15:44 | CASEMGMT ---
Social Work BIMS () and PHQ-9 (11/13) completed for MDS assessment. Mirta Mason MSW OUTSOLES CHANNEL OPENER
[2022-07-09 16:00] VITALS: BP 154/65; PULSE 57; RESP 18; TEMP 36.6; O2SAT 95
[2022-07-09] MEDS: Zolpidem Tartrate 5 MG Tablet PO (22:05)
[2022-07-09] MEDS: Mirtazapine 15 MG Tablet PO (22:06)
[2022-07-09 22:16] VITALS: PULSE 60; RESP 18; O2SAT 96
[2022-07-10] MEDS: clonazePAM 0.5 MG Tablet PO ×2 (05:09→17:21)
[2022-07-10] MEDS: Clopidogrel Bisulfate 75 MG Tablet PO (05:09)
[2022-07-10] MEDS: Enoxaparin 40 MG/0.4 ML Syringe SC (05:09)
[2022-07-10] MEDS: Fluticasone 0.05% 1 SPRAY NASAL.SRY 2 SPRAY NASAL ×2 (05:09→17:20)
[2022-07-10] MEDS: Pantoprazole Sodium 20 MG Tablet PO (05:09)
[2022-07-10] MEDS: Senna/Docusate Sodium 1 Tablet PO ×2 (05:09→17:21)
[2022-07-10] MEDS: Citalopram 10 MG Tablet PO (05:10)
[2022-07-10] MEDS: Hydroxychloroquine 200 MG Tablet 300 MG PO (08:23)
[2022-07-10] MEDS: Juven (unflavored) Packet 1 PACKET PO ×2 (08:23→16:45)
[2022-07-10] MEDS: Acetaminophen 500 MG Tablet 1000 MG PO ×2 (10:13→22:13)
[2022-07-10 14:40] VITALS: PULSE 62; RESP 14; O2SAT 97
[2022-07-10 15:35] VITALS: BP 139/54; PULSE 62; RESP 14; TEMP 36.7; O2SAT 97
[2022-07-10] MEDS: Mirtazapine 15 MG Tablet PO (22:09)
[2022-07-10] MEDS: Zolpidem Tartrate 5 MG Tablet PO (22:09)
[2022-07-11] MEDS: Citalopram 10 MG Tablet PO (06:05)
[2022-07-11] MEDS: Senna/Docusate Sodium 1 Tablet PO ×2 (06:05→17:24)
[2022-07-11] MEDS: Clopidogrel Bisulfate 75 MG Tablet PO (06:05)
[2022-07-11] MEDS: Pantoprazole Sodium 20 MG Tablet PO (06:05)
[2022-07-11] MEDS: clonazePAM 0.5 MG Tablet PO ×2 (06:05→17:30)
[2022-07-11] MEDS: Enoxaparin 40 MG/0.4 ML Syringe SC (06:06)
[2022-07-11] MEDS: Fluticasone 0.05% 1 SPRAY NASAL.SRY 2 SPRAY NASAL ×2 (06:06→17:23)
[2022-07-11 07:40] LABS: Absolute Lymphocyte Count 1.63 X10^3/uL (0.83-4.51); Absolute Neutrophil Count 2.9 X10^3/uL (2.0-7.7); Basophil# 0.02 X10^3/uL; Basophil% 0.4 % (0-1); Eosinophils% 1.8 % (0-5); Hematocrit 32.1 % (37-47); Hemoglobin 10.6 g/dL (12.0-15.0); Lymphocyte # 1.63 X10^3/ul (0.83-4.51); Mean Corpuscular Hgb 30.5 pg (27.0-32.0); Mean Corpuscular Volume 92.5 fL (81-99); Mean Platelet Vol. 10.3 fl (6.2-12.0); Monocyte% 17.8 % (0-10); NRBC Flagged by Analyzer 0 % (0-5); Neutrophil # 2.85 X10^3/uL (2.7-7.7); Neutrophil % 50.6 % (47-70); Platelet Count 302 K/mm3 (150-450); RBC Distribution Width CV 13.9 % (11.6-14.6); RBC Distribution Width SD 46.9 fl (35.1-43.9); Red Blood Count 3.47 M/mm3 (4.2-5.4); White Blood Count 5.6 K/mm3 (4.4-11.0)
[2022-07-11 07:56] LABS: Anion Gap 7 (5-15); BUN 25 mg/dL (7-18); BUN/Creat Ratio 37.8 RATIO (10-20); Chloride 105 mmol/L (98-107); Creatinine, Serum 0.66 mg/dL (0.55-1.02); EST Glomerular Filtration Rate 91 mL/min (>60); Est Glom Filt Rate - Afr Amer 110 mL/min (>60); Estimated Creatinine Clearance 36.81 ml/min; Glucose 101 mg/dL (74-106); Potassium 3.7 mmol/L (3.5-5.1); Sodium Level 139 mmol/L (136-145)
[2022-07-11] MEDS: Juven (unflavored) Packet 1 PACKET PO ×2 (08:53→17:26)
[2022-07-11] MEDS: Hydroxychloroquine 200 MG Tablet 300 MG PO (08:53)
[2022-07-11] MEDS: Acetaminophen 500 MG Tablet 1000 MG PO ×2 (10:36→22:45)
[2022-07-11] MEDS: Tuberculin,Purif.prot.deriv. 50 TU/ML Vial 0.1 ML ID (10:38)
[2022-07-11 16:00] VITALS: BP 181/67; PULSE 71; RESP 16; TEMP 36.1; O2SAT 97
[2022-07-11 20:15] VITALS: PULSE 60; RESP 16; O2SAT 97
[2022-07-11] MEDS: Zolpidem Tartrate 5 MG Tablet PO (22:45)
[2022-07-11] MEDS: Mirtazapine 15 MG Tablet PO (22:45)
[2022-07-12] MEDS: clonazePAM 0.5 MG Tablet PO ×2 (06:31→16:47)
[2022-07-12] MEDS: Fluticasone 0.05% 1 SPRAY NASAL.SRY 2 SPRAY NASAL ×2 (06:31→16:49)
[2022-07-12] MEDS: Pantoprazole Sodium 20 MG Tablet PO (06:31)
[2022-07-12] MEDS: Clopidogrel Bisulfate 75 MG Tablet PO (06:31)
[2022-07-12] MEDS: Citalopram 10 MG Tablet PO (06:33)
[2022-07-12] MEDS: Hydroxychloroquine 200 MG Tablet 300 MG PO (08:39)
[2022-07-12] MEDS: Juven (unflavored) Packet 1 PACKET PO ×2 (08:39→16:48)
[2022-07-12] MEDS: Acetaminophen 500 MG Tablet 1000 MG PO ×2 (08:45→22:09)
[2022-07-12 08:47] VITALS: RESP 18
[2022-07-12 16:00] VITALS: BP 174/52; PULSE 56; RESP 15; TEMP 35.7; O2SAT 98
[2022-07-12] MEDS: Zolpidem Tartrate 5 MG Tablet PO (22:09)
[2022-07-12] MEDS: Mirtazapine 15 MG Tablet PO (22:10)
[2022-07-13] MEDS: clonazePAM 0.5 MG Tablet PO ×2 (05:38→16:52)
[2022-07-13] MEDS: Clopidogrel Bisulfate 75 MG Tablet PO (05:38)
[2022-07-13] MEDS: Pantoprazole Sodium 20 MG Tablet PO (05:38)
[2022-07-13] MEDS: Fluticasone 0.05% 1 SPRAY NASAL.SRY 2 SPRAY NASAL ×2 (05:38→16:55)
[2022-07-13] MEDS: Citalopram 10 MG Tablet PO (05:39)
[2022-07-13] MEDS: Acetaminophen 500 MG Tablet 1000 MG PO ×2 (05:41→22:20)
[2022-07-13] MEDS: Hydroxychloroquine 200 MG Tablet 300 MG PO (08:22)
[2022-07-13] MEDS: Juven (unflavored) Packet 1 PACKET PO ×2 (08:22→16:51)
--- NOTE | 2022-07-13 09:28 | NURSING ---
Forest Fire Fighter Note; MDS & Activity Asst: complete
--- NOTE | 2022-07-13 11:35 | CASEMGMT ---
Social Work Pt requesting to DC home. EDUARDO reviewed Dr. Roy note and planning to see pt today to clear for DC. Per therapy, pt is adlib in room and maintaining WBS. EDUARDO spoke with pt and agreeable to DC home 07/14. Recommended outpatient PT. Pt agreeable and requesting [facility]. Referral faxed to [facility]. Pt denies need for w/c. Updated Sylvie at [facility]. Pt will have family transport. Plan: DC home alone 07/14, [facility], no DME needs Mirta Mason MSW TOURING PRODUCTION MANAGER
--- NOTE | 2022-07-13 12:53 | PN_ITS ---
Subjective Subjective Patient was seen today for follow up on right foot. She relates she would like to go home. No complaints of fever, chills, nausea or vomiting, no SOB or chest pain. She does relate she has developed a bump on the side of her ankle/leg, there is some swelling, but no significant pain. Objective Data Objective Data Vital Signs: Vital Signs Temp Pulse Resp BP Pulse Ox O2 Del Method 96.2 F L 56 L 15 174/52 H 98 Room Air 07/12/22 16:00 07/12/22 16:00 07/12/22 16:00 07/12/22 16:00 07/12/22 16:00 07/12/22 16:00 Oxygen Delivery Method Room Air Weight: 69.428 kg Body Mass Index (BMI) 25.8 Intake & Output: Intake and Output for Last 24 Hours 07/11/22 07/12/22 07/13/22 23:59 23:59 23:59 Intake Total 720 / 720 600 / 600 240 / 240 Balance 720 / 720 600 / 600 240 / 240 Lab / Micro Data Result Diagrams: 07/11/22 07:15 07/11/22 07:15 Micro: Microbiology 07/10/22 05:48 Nasal Secretion SARS-CoV-2 Antigen (Rapid) - Final Physical Exam Const alert, oriented x3 and no apparent distress Extremity Extremity Narrative: Right foot: Incision sites well coapted with intact sutures, no dehiscence, no cellulitis, no fluctuance, no crepitus, no visible abscess, no streaking, no necrosis present; no evidence of infection, there is some ecchymosis and localized edema c/w normal post op course - improved, CFT < 2 seconds to the toes on the right foot with normal temperature present, no evidence of compartme nt syndrome. Calf is soft and supple with no pain with calf squeeze, negative elinor sign bilateral LE. There is noted to be some ecchymosis with localized hematoma to the lateral proximal right ankle and mild edema - no significant POP. Assessment & Plan Assessment/Plan (1) Hallux valgus (acquired), right foot: (2) Tailor's bunion of right foot: (3) Other hammer toe(s) (acquired), right foot: PLAN: Plan Right foot was checked. It is healing well. No evidence of infection. Dressing was changed today - betadine soln to incision sites with overlying gauze, kerlix and austin dressing. Keep dressing clean, dry and intact. Ok to weightbear on right with assistance of surgical shoe and walker. Keep right foot elevated. It appears she has a small hematoma to the lateral proximal ankle (right) - ordered xrays and venous doppler. As along as no DVT and ankle xrays look good - ok to d/c home from podiatry standpoint and patient to follow up with me in office this , sooner if needed.
--- NOTE | 2022-07-13 12:57 | RAD_ITS ---
STUDY: X-RAY - RIGHT ANKLE REASON FOR EXAM: Female, 82 years old. hematoma lateral ankle TECHNIQUE: 3 view(s) of the ankle. COMPARISON: None. FINDINGS: Lower leg edema. No radiodense soft tissue foreign body. No fracture or talar osteochondral defect. Normal alignment and mortise spacing. RAD/Ankle min 3 Views IMPRESSION: Lower leg and ankle edema. No acute osseous finding. Electronically Signed: Piter Benavides MD at 5:03 EDT ,
--- NOTE | 2022-07-13 12:59 | DCINST_ITS ---
Discharge Instructions Activity Weight Bearing Status: Partial weight bearing (Ok to put weight on right foot, but must keep protected in surgical shoe and use regular walker when on foot) Keep extremity elevated above heart level: Right Leg (Keep right foot elevated with pillows as much as possible.) Dressing / Incision Call your doctor if your incision/area has: Continuous Slow Oozing and Foul Smelling Discharge Call your doctor if you observe: Fever of 101 or Higher, Shortness of breath, Chest pain, Calf discomfort and Uncontrolled pain Cleanse incision/area with: Do not get Incision Wet and Keep Dressing Clean & Dry (Keep bandage/dressing right foot clean, dry and intact.) Follow Up Care Please Follow Up With: DR. LEEANNA ROY When: This week on 07/16/2022 at [facility], follow up sooner if needed. Office Address: [address] [place] [address] Office phone number: [phone] Pager number: [phone] Test Results: Test results from this visit will be discussed in further detail at your follow- up appointment, if applicable. Discharge Plan Admission Admit Date/Time: 07/03/22 19:21 Primary Reason for Your Visit: Debility. Attending Provider: Nicolas Bajwa Chi Primary Care Provider: Cleveland Becerra Consulting Providers: Leeanna Roy Instructions Additional Instructions / Restrictions: Discharge home alone 07/14/2022, [facility], no DME needs. Discharge Orders/Prescriptions Prescriptions: New acetaminophen 500 mg Tablet 1,000 mg PO Q6H PRN PRN (Reason: Pain Score 1-3) Qty: 0 0RF Artificial Tears([id number]) 1-0.2-0.2 % Drops 1 drp EACH EYE Q1H PRN PRN (Reason: DRY EYES) Qty: 0 0RF Nando (with collagen) 7-7-1.5 gram Powder In Packet 1 packet PO BIDCM 30 Days Qty: 60 0RF Continued clonazepam 0.5 MG tablet 0.5 mg PO BID clopidogrel 75 MG tablet 75 mg PO DAILY Label Comments: pt states will stop on 08/24/21 for surgery on 09/01/[address] Kam instructions hydroxychloroquine 200 MG tablet 300 mg PO DAILYCM mirtazapine [Remeron SolTab] 15 MG tablet,disintegrating 15 mg PO QHS fluticasone propionate [Allergy Relief (fluticasone)] 15.8 ML spray,suspension 2 spray NS BID omeprazole 20 MG capsule 20 mg PO DAILY Acidophilus 1 EACH capsule 1 ea PO BID zolpidem 5 MG tablet 5 mg PO QHS citalopram 10 MG tablet 10 mg PO DAILY 30 Days Qty: 30 0RF Discontinued acetaminophen [Tylenol Extra Strength] 500 MG tablet 1,000 mg PO Q8H PRN PRN (Reason: Pain) oxycodone 5 mg Tablet 5 mg PO Q4H PRN PRN (Reason: Pain Score 4-10) 4 Days Qty: 14 0RF enoxaparin 40 mg/0.4 mL syringe 40 mg subcut DAILY Referrals / Follow Up: Cleveland Becerra MD [Primary Care Provider] - 07/24/22 10:40 am (will call if they can get her in early) Disposition Disposition (needs filled in before D/C Order can be placed): Home, Self Care
--- NOTE | 2022-07-13 13:42 | NURSING ---
Dr. Roy in to see patient. Orders STAT x-ray to right leg d/t swollen/painful area to right lower leg and also orders Doppler before discharging on 07/14. Orders to leave dressing in place until patient follows up with him on 07/16. To get stitches removed 07/[address] Roy's office.
--- NOTE | 2022-07-13 14:45 | WOUNDNOTE ---
Dr Roy had been in and changed the dressing to the right foot. dressing is D&I at this time.
[2022-07-13 14:56] VITALS: BP 137/50; PULSE 58; RESP 18; TEMP 36.2; O2SAT 98
--- NOTE | 2022-07-13 18:31 | NURSING ---
Contacted PCP. Last pneumococcal vaccine was 03/06/12 and has had no Pneumovax booster. Dr. Bajwa made aware and ordered Pneumovax before going home tomorrow on 07/14/22
--- NOTE | 2022-07-13 20:04 | DS.PCM_ITS ---
Providers Date of Admission: 07/03/22 Primary Care Physician: Dr. Cleveland Becerra MD Consultations 07/03/22 20:31 Consult: Podiatry Routine Consulting Provider: Leeanna Roy Reason for Consult: post surgery EMERGENT Consult: No MD Notified: Yes Date Notified: 07/03/22 Time Notified: 20:32 Method of Notification: Answering Service 07/03/22 22:52 Consult: Onc/Wound/pot maker Routine Comment: surgical wound right foot Reason For Visit: RIGHT FIRST METATARSAL BUNIONECTOMY & PARTIAL Diagnosis Discharge Diagnosis (1) Hallux valgus (acquired), right foot: Status: Acute Code(s): M20.11 - Hallux valgus (acquired), right foot (2) Tailor's bunion of right foot: Status: Acute Code(s): M21.621 - Bunionette of right foot (3) Other hammer toe(s) (acquired), right foot: Status: Acute Code(s): M20.41 - Other hammer toe(s) (acquired), right foot Plan 82 year old female with below past medical history hospitalized for 1st toe/metatarsal bunionectomy, right foot; Tailor's bunionectomy, right foot; 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 Roy, admitted to TCU with debility, here for rehabilitation, strengthening, prior to discharge home alone. * Debility - PT/OT. * Pain - Tylenol 1000mg q6h prn pain (1-3), Oxycodone 5mg q4h prn pain (4-10). * Bowel - Miralax 17gm daily, senna/colace 1 tablet bid, Dulcolax 10mg daily prn. * Adult immunization - Administer pneumonia vaccine, covid19 vaccine, flu vaccine, as appropriate. * DVT prophylaxis - Lovenox 40mg sc daily. * Depression - Citalopram 10mg daily, stable chronic [place] [facility] use, GDR not recommended. * Anxiety - Clonazepam 0.5mg bid, stable chronic [place] [facility] use, GDR not recommended. * Coronary Artery Disease - Plavix 75mg daily. * Allergic rhinitis - Flonase 2 sprays nasal bid. * Osteoarthritis - Plaquenil 300mg daily. * GI prophylaxis - Lactobacillus 1 tablet bid. * Appetite loss - Mirtazapine 15mg qhs, stable chronic [employer] use, GDR not recommended. * GERD - Omeprazole 20mg daily. * Insomnia - Zolpidem 5mg qhs, stable chronic [place] [facility] use, GDR not recommended. Medications at Discharge Home Medications clonazepam 0.5 mg tablet 0.5 mg PO BID anxiety 06/04/17 clopidogrel 75 mg tablet 75 mg PO DAILY blood thinner 06/04/17 fluticasone propionate 50 mcg/actuation nasal spray,suspension (Allergy Relief (fluticasone)) 2 spray NS BID congestion 06/04/17 hydroxychloroquine 200 mg tablet 300 mg PO DAILYCM lupus 06/04/17 mirtazapine 15 mg disintegrating tablet (Remeron SolTab) 15 mg PO QHS depression 06/04/17 Lactobacillus acidophilus (Acidophilus capsule) 1 ea PO BID probiotic 06/27/17 omeprazole 20 mg capsule,delayed release 20 mg PO DAILY GERD 06/27/17 zolpidem 5 mg tablet 5 mg PO QHS sleep 06/27/17 citalopram 10 mg tablet 10 mg PO DAILY depression 30 days #30 tabs 09/09/21 acetaminophen 500 mg tablet 1,000 mg PO Q6H PRN PRN Pain Score 1-3 #0 tabs 07/13/22 arginine 7 gram-glutam 7 gram-CaHMB 1.5 [id number]-qzcdp-mw-min oral pwd pkt (Nando (with collagen)) 1 packet PO BIDCM 30 days #60 ea 07/13/22 peg [id number] 1 %-0.2 %-0.2 % eye drops (Artificial Tears ([id number])) 1 drp EACH EYE Q1H PRN PRN DRY EYES #0 mL 07/13/22 Hospital Course Operations - (See below.) Procedures None Summary of Care Provided Minutes Spent on Discharge: 35 Hospital Course: 82 year old female with below past medical history hospitalized for 1st toe/metatarsal bunionectomy, right foot; Tailor's bunionectomy, right foot; 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 Roy, admitted to TCU with debility, here for rehabilitation, strengthening, prior to discharge home alone. Discharge home alone 07/14/2022, [facility], no DME needs. Physical Exam Const alert General Appearance: cooperative HEENT normocephalic Eyes PERRL and EOMs intact bilaterally Neck supple, no JVD and no carotid bruits Resp normal respiratory effort, normal air movement and clear to auscultation bilate rally Cardio regular rate and regular rhythm GI normal to inspection, nondistended, normoactive bowel sounds, non-tender and non-distended Extremity normal capillary refill General Extremity: Negative for edema Skin no rashes or lesions noted General Skin Exam: no breakdown Psych affect normal Appearance: appropriate Weight / BMI Weight Weight: 69.428 kg Body Mass Index (BMI) 25.8 ABG / Lab / Microbiology Data Result Diagrams: 07/11/22 07:15 07/11/22 07:15 Microbiology: Microbiology 07/10/22 05:48 Nasal Secretion SARS-CoV-2 Antigen (Rapid) - Final D/C Instructions Discharge Diet: No restrictions Discharge Activity: Return to Normal Activity, May Not Shower and Use Walker Weight Bearing Status: Partial weight bearing (Ok to put weight on right foot, but must keep protected in surgical shoe and use regular walker when on foot) Keep extremity elevated above heart level: Right Leg (Keep right foot elevated with pillows as much as possible.) Call your doctor if your incision/area has: Continuous Slow Oozing and Foul Smelling Discharge Call your doctor if you observe: Fever of 101 or Higher, Shortness of breath, Chest pain, Calf discomfort and Uncontrolled pain Cleanse incision/area with: Do not get Incision Wet and Keep Dressing Clean & Dry (Keep bandage/dressing right foot clean, dry and intact.) Additional Instructions: Discharge home alone 07/14/2022, [facility], no DME needs. Please Follow Up With: DR. LEEANNA ROY When: This week on 07/16/2022 at the [facility] [place], follow up sooner if needed. Office Address: [address] [place] [address] [place] [address] Office phone number: [phone] Pager number: [phone] Meaningful Use Info Meaningful Use Diagnoses (Choose all that apply): None applicable Discharge Plan Admission Admit Date/Time: 07/03/22 19:21 Primary Reason for Your Visit: Debility. Attending Provider: Nicolas Bajwa Chi Primary Care Provider: Cleveland Becerra Consulting Providers: Leeanna Roy Instructions Additional Instructions / Restrictions: Discharge home alone 07/14/2022, [facility], no DME needs. Discharge Orders/Prescriptions Prescriptions: New acetaminophen 500 mg Tablet 1,000 mg PO Q6H PRN PRN (Reason: Pain Score 1-3) Qty: 0 0RF Artificial Tears(do-wbxf-kguw) 1-0.2-0.2 % Drops 1 drp EACH EYE Q1H PRN PRN (Reason: DRY EYES) Qty: 0 0RF Nando (with collagen) 7-7-1.5 gram Powder In Packet 1 packet PO BIDCM 30 Days Qty: 60 0RF Continued clonazepam 0.5 MG tablet 0.5 mg PO BID clopidogrel 75 MG tablet 75 mg PO DAILY Label Comments: pt states will stop on 08/24/21 for surgery on 09/01/[address] Kam instructions hydroxychloroquine 200 MG tablet 300 mg PO DAILYCM mirtazapine [Remeron SolTab] 15 MG tablet,disintegrating 15 mg PO QHS fluticasone propionate [Allergy Relief (fluticasone)] 15.8 ML spray,suspension 2 spray NS BID omeprazole 20 MG capsule 20 mg PO DAILY Acidophilus 1 EACH capsule 1 ea PO BID zolpidem 5 MG tablet 5 mg PO QHS citalopram 10 MG tablet 10 mg PO DAILY 30 Days Qty: 30 0RF Discontinued acetaminophen [Tylenol Extra Strength] 500 MG tablet 1,000 mg PO Q8H PRN PRN (Reason: Pain) oxycodone 5 mg Tablet 5 mg PO Q4H PRN PRN (Reason: Pain Score 4-10) 4 Days Qty: 14 0RF enoxaparin 40 mg/0.4 mL syringe 40 mg subcut DAILY Referrals / Follow Up: Cleveland Becerra MD [Primary Care Provider] - 07/24/22 10:40 am (will call if they can get her in early) Disposition Disposition (needs filled in before D/C Order can be placed): Home, Self Care
[2022-07-13 20:09] VITALS: BP 169/53; PULSE 57; RESP 16; TEMP 36.9; O2SAT 98
[2022-07-13 22:00] VITALS: PULSE 60; RESP 16; O2SAT 96
[2022-07-13] MEDS: Zolpidem Tartrate 5 MG Tablet PO (22:20)
[2022-07-13] MEDS: Mirtazapine 15 MG Tablet PO (22:22)
[2022-07-14] MEDS: clonazePAM 0.5 MG Tablet PO (05:32)
[2022-07-14] MEDS: Citalopram 10 MG Tablet PO (05:34)
[2022-07-14] MEDS: Pantoprazole Sodium 20 MG Tablet PO (05:34)
[2022-07-14] MEDS: Fluticasone 0.05% 1 SPRAY NASAL.SRY 2 SPRAY NASAL (05:34)
[2022-07-14] MEDS: Clopidogrel Bisulfate 75 MG Tablet PO (05:34)
[2022-07-14] MEDS: Hydroxychloroquine 200 MG Tablet 300 MG PO (08:05)
[2022-07-14] MEDS: Juven (unflavored) Packet 1 PACKET PO (08:06)
[2022-07-14] MEDS: Acetaminophen 500 MG Tablet 1000 MG PO (09:56)
[2022-07-14 10:00] VITALS: PULSE 57; RESP 16; O2SAT 98
--- NOTE | 2022-07-15 11:42 | MDS.RN ---
Information for the mds was obtained from review of the clinical record, interview of resident, staff, and direct observation of resident's care.
== END 2022-07-14 09:45 | disposition home or self-care (01) | DRG 561 ==
PROVIDERS: Admitting Provider Family Medicine Geriatric Medicine; PCP Family Medicine; Visit Provider Family Medicine Geriatric Medicine
DX: Z47.81 Encounter for orthopedic aftercare following surgical amputation (principal); F32.A Depression, unspecified; M32.9 Systemic lupus erythematosus, unspecified; Z89.421 Acquired absence of other right toe(s); I25.10 Atherosclerotic heart disease of native coronary artery without angina pectoris; M20.40 Other hammer toe(s) (acquired), unspecified foot; I10 Essential (primary) hypertension; F41.9 Anxiety disorder, unspecified; K21.9 Gastro-esophageal reflux disease without esophagitis; M20.10 Hallux valgus (acquired), unspecified foot; M21.629 Bunionette of unspecified foot; Z79.01 Long term (current) use of anticoagulants; Z79.899 Other long term (current) drug therapy; Z79.02 Long term (current) use of antithrombotics/antiplatelets; Z86.711 Personal history of pulmonary embolism; Z23 Encounter for immunization
CPT/HCPCS: 36415; 73610; 80048; 85025; 87811; 90677; 93971; 97110; 97116; 97162; 97166; 97530; 97535; 97802; 97803; G0009

== ENCOUNTER → 2022-07-13 | Outpatient (CLI) | payer MEDICARE, OTHER, SELFPAY ==
--- NOTE | 2022-07-13 09:46 | VDLE_ITS ---
Reason For Study: Pain RIGHT GSV is normal. CFV is compressible, spontaneous, phasic, competent and demonstrates normal augmentation. FV is compressible, spontaneous, phasic, competent and demonstrates normal augmentation. POP V is compressible, spontaneous, phasic, competent and demonstrates normal augmentation. T/P Trunk is compressible. PTV is compressible. RT PerV is compressible. Nonvascularized structure noted at lateral distal calf that measures 0.38 x 0.88 x 0.85 cm. Procedure This is a venous duplex using B-mode, color flow and spectral Doppler. Exam performed portable in patient room. A preliminary report was called and/or faxed to TCU. VL/Venous Duplex US, Unilateral Interpretation Summary There is no evidence of right lower extremity deep vein thrombosis. Right great saphenous vein appears patent and compressible segmentally. Right lateral distal calf subcutan eous 0.38 x 0.88 x 0.85 cm nonvascular mass. Undetermined etiology. Clinical correlation would be appropriate. Ordering Physician: iNcolas Bajwa Chi Referring Physician: Cleveland Becerra Performed By: Sonya Cardenas RVT
== END | disposition home or self-care (01) ==
LOC: CVS 09:45
PROVIDERS: PCP Family Medicine; Referring Provider Family Medicine Geriatric Medicine; Visit Provider Family Medicine Geriatric Medicine
DX: M79.661 Pain in right lower leg (principal)
CPT/HCPCS: 93971

== ENCOUNTER → 2023-01-27 | Outpatient (CLI) | payer MEDICARE, OTHER, SELFPAY ==
[2023-01-27 16:15] LABS: Anion Gap 3 (5-15); BUN 25 mg/dL (7-18); BUN/Creat Ratio 27.1 RATIO (10-20); Calcium,Total 7.5 mg/dL (8.5-10.1); Chloride 106 mmol/L (98-107); Cholesterol 143 mg/dL (200); Creatinine, Serum 0.92 mg/dL (0.55-1.02); EST Glomerular Filtration Rate 62 mL/min (>60); Est Glom Filt Rate - Afr Amer 75 mL/min (>60); Glucose 86 mg/dL (74-106); High Density Lipoprotein 59 mg/dL; Potassium 4.4 mmol/L (3.5-5.1); Sodium Level 136 mmol/L (136-145); Triglycerides 49 mg/dL; Very Low Density Lipoprotein 10 mg/dL (5-40)
== END | disposition home or self-care (01) ==
LOC: MFPLAB 11:46
PROVIDERS: PCP Family Medicine; Referring Provider Family Medicine; Visit Provider Family Medicine
DX: I10 Essential (primary) hypertension (principal)
CPT/HCPCS: 36415; 80048; 80061

== ENCOUNTER → 2023-03-29 | Outpatient (CLI) | payer MEDICARE, OTHER, SELFPAY | END | disposition home or self-care (01) | PROVIDERS: PCP Family Medicine; Visit Provider Family Medicine | DX: N39.0 Urinary tract infection, site not specified (principal) | CPT/HCPCS: 87086; 87088 ==

== ENCOUNTER → 2023-07-29 | Outpatient (CLI) | payer MEDICARE, OTHER, SELFPAY ==
--- NOTE | 2023-07-29 11:34 | RAD_ITS ---
STUDY: X-RAY - LEFT CALCANEUS REASON FOR EXAM: Female, 83 years old. Pain in left heel. TECHNIQUE: 2 views of the left calcaneus were obtained. COMPARISON: None. FINDINGS: Intact visualized calcaneus. There is a tiny plantar calcaneal spur. There is no demonstrated fracture. RAD/Calcaneus min 2 Views IMPRESSION: Tiny plantar calcaneal spur. No fracture. Electronically Signed: Dillon Yee MD at 14:55 EDT ,
[2023-07-29 15:42] LABS: Anion Gap 5 (5-15); BUN 20 mg/dL (7-18); BUN/Creat Ratio 16.7 RATIO (10-20); Calcium,Total 7.4 mg/dL (8.5-10.1); Chloride 105 mmol/L (98-107); EST Glomerular Filtration Rate 45 mL/min (>60); Est Glom Filt Rate - Afr Amer 55 mL/min (>60); Glucose 88 mg/dL (74-106); Potassium 4.1 mmol/L (3.5-5.1); Sodium Level 139 mmol/L (136-145); Uric Acid 5.4 mg/dL (2.6-6.0)
== END | disposition home or self-care (01) ==
LOC: MTLAB 11:32
PROVIDERS: PCP Family Medicine; Referring Provider Family Medicine; Visit Provider Family Medicine
DX: I10 Essential (primary) hypertension (principal); M79.672 Pain in left foot
CPT/HCPCS: 36415; 73650; 80048; 84550

== ENCOUNTER → 2024-01-31 | Outpatient (CLI) | payer MEDICARE, OTHER, SELFPAY ==
[2024-01-31 16:17] LABS: Anion Gap 5 (5-15); BUN 26 mg/dL (7-18); BUN/Creat Ratio 23.4 RATIO (10-20); Calcium,Total 6.7 mg/dL (8.5-10.1); Chloride 104 mmol/L (98-107); Cholesterol 163 mg/dL (200); Creatinine, Serum 1.11 mg/dL (0.55-1.02); EST Glomerular Filtration Rate 50 mL/min (>60); Est Glom Filt Rate - Afr Amer 60 mL/min (>60); Glucose 94 mg/dL (74-106); High Density Lipoprotein 59 mg/dL; Potassium 4.6 mmol/L (3.5-5.1); Sodium Level 138 mmol/L (136-145); Triglycerides 72 mg/dL; Very Low Density Lipoprotein 14 mg/dL (5-40)
== END | disposition home or self-care (01) ==
LOC: MFPLAB 14:11
PROVIDERS: PCP Family Medicine; Visit Provider Family Medicine
DX: I10 Essential (primary) hypertension (principal)
CPT/HCPCS: 36415; 80048; 80061

== ENCOUNTER → 2024-05-17 | Outpatient (CLI) | payer MEDICARE, OTHER, SELFPAY ==
--- NOTE | 2024-05-17 16:57 | RAD_ITS ---
EXAM: XR CHEST, 2 VIEWS CLINICAL INDICATION: SOB, sinus infection TECHNIQUE: Frontal and lateral views of the chest. COMPARISON: No relevant prior studies available. FINDINGS: LUNGS AND PLEURAL SPACES: Mild pleural-parenchymal scarring at the lung bases. Biapical parenchymal scarring. No consolidation. No pleural effusion or pneumothorax. HEART: Unremarkable. Cardiac silhouette not enlarged. MEDIASTINUM: Central airways and mediastinal contour are unremarkable. BONES/JOINTS: Diffuse osteopenia. Degenerative changes of the spine. No acute fracture. SOFT TISSUES: Unremarkable. VASCULATURE: Ectatic thoracic aortic arch with atherosclerotic calcifications. UPPER ABDOMEN: Elevated right hemidiaphragm. Surgical artifact involving the right upper quadrant. RAD/Chest PA and Lateral IMPRESSION: 1. No consolidating pneumonia or other acute disease. 2. Ancillary findings as above. Electronically Signed: Jerardo Duke MD at 23:53 EDT ,
== END | disposition home or self-care (01) ==
PROVIDERS: PCP Family Medicine; Referring Provider Family Medicine; Visit Provider Family Medicine
DX: R06.02 Shortness of breath (principal)
CPT/HCPCS: 71046

== ENCOUNTER → 2024-08-28 | Outpatient (CLI) | payer MEDICARE, OTHER, SELFPAY | END | disposition home or self-care (01) | PROVIDERS: PCP Family Medicine; Referring Provider Family Medicine; Visit Provider Family Medicine | DX: R29.6 Repeated falls (principal) | CPT/HCPCS: 71046 ==

== ENCOUNTER → 2024-11-03 | Outpatient (CLI) | payer MEDICARE, OTHER, SELFPAY ==
[2024-11-03 17:57] LABS: Anion Gap 7 (5-15); BUN 19 mg/dL (7-18); Calcium,Total 6.2 mg/dL (8.5-10.1); Chloride 103 mmol/L (98-107); Cholesterol 157 mg/dL (200); EST Glomerular Filtration Rate 63 mL/min (>60); Est Glom Filt Rate - Afr Amer 76 mL/min (>60); Glucose 93 mg/dL (74-106); High Density Lipoprotein 58 mg/dL; Sodium Level 136 mmol/L (136-145); Triglycerides 58 mg/dL; Very Low Density Lipoprotein 12 mg/dL (5-40)
== END | disposition home or self-care (01) ==
LOC: MFPLAB 14:13
PROVIDERS: PCP Family Medicine; Referring Provider Family Medicine; Visit Provider Family Medicine
DX: I10 Essential (primary) hypertension (principal)
CPT/HCPCS: 36415; 80048; 80061

== ENCOUNTER → 2024-11-17 | Outpatient (CLI) | payer MEDICARE, OTHER, SELFPAY ==
[2024-11-17 13:31] LABS: Ionized Calcium Order ORDER TUBE
[2024-11-17 16:57] LABS: Ionized Calcium 0.95 mmol/L (1.09-1.30)
[2024-11-17 19:06] LABS: Anion Gap 5 (5-15); BUN 17 mg/dL (7-18); BUN/Creat Ratio 21.2 RATIO (10-20); Calcium,Total 6.6 mg/dL (8.5-10.1); Chloride 106 mmol/L (98-107); EST Glomerular Filtration Rate 72 mL/min (>60); Est Glom Filt Rate - Afr Amer 87 mL/min (>60); Glucose 91 mg/dL (74-106); Potassium 4.4 mmol/L (3.5-5.1); Sodium Level 138 mmol/L (136-145)
[2024-11-18 09:32] LABS: PTHIN 13.1 pg/mL (18.4-80.1)
== END | disposition home or self-care (01) ==
LOC: MFPLAB 12:30
PROVIDERS: PCP Family Medicine; Referring Provider Family Medicine; Visit Provider Family Medicine
DX: E83.51 Hypocalcemia (principal)
CPT/HCPCS: 36415; 80048; 82330; 83970

== ENCOUNTER → 2024-12-06 | Outpatient (CLI) | payer MEDICARE, OTHER, SELFPAY ==
--- NOTE | 2024-12-06 11:47 | BI_ITS ---
PROCEDURE: SCRN MAMM (CAD)W/MARCELA BILAT REASON FOR EXAM: F, Age 84 y/o, no family history. Annual follow-up. TECHNIQUE: Bilateral screening digital breast tomosynthesis with 2D and 3D images. Computer aided detection. COMPARISON: Prior exam(s) dating back to October 17, 2019.. FINDINGS: The breasts are almost entirely fatty. Stable examination. Surgical clips are seen in the right axilla. This is in keeping with patient's history of prior right axillary node resection. No suspicious masses, areas of developing architectural distortion, or suspicious calcifications. BI/SCRN MAMM (CAD)W/MARCELA BILAT IMPRESSION: BI-RADS 2: BENIGN. RECOMMEND ANNUAL MAMMOGRAPHIC SCREENING. Follow-up code: Routine Follow-up The patient will be notified of the results by letter. Reading Location: [place] [address]
== END | disposition home or self-care (01) ==
LOC: OPBI 11:47
PROVIDERS: PCP Family Medicine; Referring Provider Family Medicine; Visit Provider Family Medicine
DX: Z12.31 Encounter for screening mammogram for malignant neoplasm of breast (principal)
CPT/HCPCS: 77063; 77067

== ENCOUNTER → 2025-01-01 | Outpatient (CLI) | payer MEDICARE, OTHER, SELFPAY ==
[2025-01-01 14:39] LABS: Anion Gap 15 (5-15); BUN 12 mg/dL (4-19); BUN/Creat Ratio 14.7 RATIO (10-20); Calcium,Total 7.7 mg/dL (7.6-11.0); Carbon Dioxide 24.5 mmol/L (21.0-32.0); Chloride 98 mmol/L (98-108); Creatinine, Serum 0.81 mg/dL (0.70-1.20); EST Glomerular Filtration Rate 72 (>60); Glucose 97 mg/dL (70-99); Potassium 3.9 mmol/L (3.3-5.1); Sodium Level 137 mmol/L (133-145); Vitamin D,25 Hydroxy 58.8 ng/mL (30-100)
[2025-01-02 04:07] LABS: Thyroid Peroxidase AB 24 IU/mL (0-34)
== END | disposition home or self-care (01) ==
LOC: MFPLAB 09:35
PROVIDERS: PCP Family Medicine; Referring Provider Internal Medicine Endocrinology, Diabetes & Metabolism; Visit Provider Internal Medicine Endocrinology, Diabetes & Metabolism
DX: E20.0 Idiopathic hypoparathyroidism (principal); I25.10 Atherosclerotic heart disease of native coronary artery without angina pectoris
CPT/HCPCS: 36415; 80048; 82306; 84443; 86376

== ENCOUNTER → 2025-01-25 | Outpatient (CLI) | payer MEDICARE, OTHER, SELFPAY ==
--- NOTE | 2025-01-25 16:53 | STRESSREP ---
Stress Test Report Pharmacologic myocardial perfusion stress test. 84-year-old with coronary artery disease Resting EKG demonstrates sinus rhythm with a rate of 60 bpm. Resting blood pressure is 184/78 mmHg. 0.4 mg of regadenoson was infused per usual protocol followed by rapid intravenous saline flush injection. Continuous EKG monitoring was performed. The maximum heart rate was 100 bpm which was 74 of max impacted heart rate the maximum workload was 1 metabolic equivalent. At rest there were no ST or T wave changes noted to suggest ischemia and at peak infusion nonspecific ST changes were noted which did not meet the criteria for ischemia. No clinical angina is noted. The final blood pressure was 148/74 mmHg. Myocardial perfusion protocol. 11.5 mCi of technetium 99m sestamibi was injected at rest. 0.4 mg of regadenoson was infused per usual protocol. At peak infusion 33.4 mCi of technetium 99m sestamibi was injected stress images were obtained stress and rest images were reconstructed and compared in the short axis vertical long and horizontal long axis. Gated images were also obtained. Perfusion SPECT analysis: Review of the stress images demonstrate normal uptake of tracer noted in all areas of the myocardium. The resting images similar demonstrated normal uptake of tracer noted in all areas of the myocardium. No areas of reversibility are noted to suggest ischemia and no previous infarct is noted. Gated SPECT analysis: The gated ejection fraction is 69%. Conclusion: Normal pharmacologic myocardial perfusion stress test. Preserved ejection fraction.
== END | disposition home or self-care (01) ==
PROVIDERS: PCP Family Medicine; Referring Provider Family Medicine; Visit Provider Family Medicine
DX: R06.02 Shortness of breath (principal)
CPT/HCPCS: 78452; 93017; A9500; A4216; J2785

== ENCOUNTER 2025-03-12 14:22 | Emergency (ER) | payer MEDICARE, OTHER, SELFPAY ==
[2025-03-12] VITALS (9 sets, daily range): BP systolic 140–188; BP diastolic 54–71; PULSE 62–97; RESP 19–28; TEMP 37.1–38.2; O2SAT 91–100; BMI 25.7
--- NOTE | 2025-03-12 15:02 | EKG12_ITS ---
Test Reason : Blood Pressure : */* mmHG Vent. Rate : 64 BPM Atrial Rate : 64 BPM P-R Int : 186 ms QRS Dur : 90 ms QT Int : 460 ms P-R-T Axes : 55 -27 73 degrees QTcB Int : 474 ms Normal sinus rhythm with sinus arrhythmia Normal ECG Confirmed by Chidi [facility] ([id number]), marketing editor BRENDA LOPEZ ([id number]) on 03/19/2025 12:57:43 PM Referred By: Confirmed By: [facility]
--- NOTE | 2025-03-12 15:02 | RAD_ITS ---
PROCEDURE: CHEST PA AND LATERAL 03/12/2025 REASON FOR EXAM: COUGH TECHNIQUE: Frontal and lateral views of the chest. COMPARISON: None. FINDINGS: Hardware: Diffuse surgical clips throughout the right axilla and bilateral lower neck. Heart: Heart size is mildly enlarged with mild pulmonary venous congestion. Mediastinum: The thoracic aorta is tortuous and calcified. Lungs: Elevation of the right hemidiaphragm. Mild diffuse interstitial opacities. No focal consolidation, pleural effusion or pneumothorax. Bones: Degenerative changes are identified within the thoracic spine. RAD/Chest PA and Lateral IMPRESSION: 1. Mild diffuse interstitial opacities, which may represent pneumonitis, pneumo roberto or pulmonary edema. 2. Mild cardiomegaly. Reading Location: [id number]
--- NOTE | 2025-03-12 15:03 | ED.VIS.DYS ---
HPI History of Present Illness Chief Complaint: Shortness of Breath Informant: patient and friend Narrative Narrative: Presents for evaluation and symptoms starting yesterday. States chills during day later when she got home felt feverish. This morning increasing cough mild productive sputum. No wheezing. No chest pains. No abdominal pain. No vomiting or diarrhea. No urinary symptoms. History of coronary disease with stent placed 6 years ago. She takes aspirin daily and Plavix every other day. States increasing weakness. No COPD or asthma history. Tylenol taken 6 hours ago. No tobacco history. PE Risk Factors: Negative for Cancer, OCP + Smoking + > 35, Prior DVT or PE, Recent immobilization, Recent surgery or Recent travel [facility] Medical History Hypoparathyroidism DVT (deep venous thrombosis) Encounter for screening for COVID-19 Wears hearing aid Wears glasses Wears dentures Depression Ambulates with cane Lupus Gastric reflux Non-smoker History of echocardiogram History of stress test History of rectocele Home Medications ?Medication ?Instructions ?Recorded ?Last Taken ?Type clopidogrel 75 mg tablet 75 mg PO DAILY blood thinner 06/04/17 07/02/22 History fluticasone propionate 50 2 spray NS BID congestion 06/04/17 07/02/22 History mcg/actuation nasal spray,suspension (Allergy Relief (fluticasone)) hydroxychloroquine 200 mg tablet 300 mg PO DAILYCM lupus 06/04/17 07/02/22 History mirtazapine 15 mg disintegrating 15 mg PO QHS depression 06/04/17 07/02/22 History tablet (Remeron SolTab) Lactobacillus acidophilus 1 ea PO BID probiotic 06/27/17 07/02/22 History (Acidophilus capsule) omeprazole 20 mg capsule,delayed 20 mg PO DAILY GERD 06/27/17 07/03/22 History release zolpidem 5 mg tablet 5 mg PO QHS sleep 06/27/17 07/02/22 History citalopram 10 mg tablet 10 mg PO DAILY depression 30 days 09/09/21 07/03/22 Rx #30 tabs acetaminophen 500 mg tablet 1,000 mg (2 x 500 mg) PO Q6H PRN 07/13/22 Unknown Rx PRN Pain Score 1-3 #0 tabs arginine 7 gram-glutam 7 1 packet PO BIDCM 30 days #60 ea 07/13/22 Unknown Rx gram-CaHMB 1.5 duol-aebzq-oz-min oral pwd pkt (Nando (with collagen)) peg [id number]-wjkbkngi 1 1 drp EACH EYE Q1H PRN PRN DRY 07/13/22 Unknown Rx %-0.2 %-0.2 % eye drops EYES #0 mL (Artificial Tears ([id number])) calcitriol 0.25 mcg capsule 0.25 mcg PO QDAY #90 caps 11/30/24 Unknown Rx calcium 600 mg (as carbonate)-vit tab PO 11/30/24 Unknown History D3 1,000 unit-vitamin K2 90 mcg tab cranberry 500 mg capsule 500 mg PO BID 11/30/24 Unknown History mecobalamin (vitamin B12) 500 mcg mcg PO 11/30/24 Unknown History chewable tablet azithromycin 250 mg tablet 250 mg PO DAILY #4 TABLETS 03/12/25 Unknown Rx cefdinir 300 mg capsule 300 mg PO Q12H #14 caps 03/12/25 Unknown Rx Allergy/AdvReac Type Severity Reaction Status Date / Time codeine AdvReac Other Verified 03/12/25 14:22 morphine AdvReac Other Verified 03/12/25 14:22 Family History no significant family his Surgical History History of bunionectomy of right great toe Hx of total knee arthroplasty History of splenectomy History of coronary artery stent placement History of colonoscopy History of cholecystectomy History of hysterectomy Social History household members: none Smoking Status: Never smoker alcohol intake: never substance use type: does not use ROS ROS ED Constitutional Constitutional ED: Reports chills and fever(s); Denies sweats ENT ENT ED: Denies sore throat Cardiovascular Cardiovascular: Denies chest pain, leg edema, palpitations or racing heartbeat Respiratory/Chest Respiratory/Chest: Reports cough and dyspnea; Denies dyspnea on exertion Gastrointestinal Gastrointestinal: Denies abdominal pain, diarrhea, nausea or vomiting Genitourinary Genitourinary ED: Denies dysuria, hematuria or urinary frequency Musculoskeletal Musculoskeletal: Denies back pain, extremity pain or neck pain Integumentary Denies rash or wounds Neurologic Neurologic: Reports weakness; Denies headache(s) or paresthesias EXAM Physical Exam Const Vital Signs: 03/12/25 14:22 03/12/25 14:24 03/12/25 15:07 Temperature 100.8 F H 100.8 F H Temperature Source Oral Oral Pulse Rate 62 62 Respiratory Rate 28 H 28 H Respiratory Effort Blood Pressure 182/59 H 182/59 H Blood Pressure Mean 100 100 Pulse Ox 93 93 Oxygen Delivery Method Room Air Room Air Room Air 03/12/25 15:24 03/12/25 16:00 03/12/25 16:22 Temperature 99 F 99 F 98.8 F Temperature Source Oral Oral Oral Pulse Rate 67 97 64 Respiratory Rate 25 H 20 H 19 H Respiratory Effort Blood Pressure 140/71 H 178/67 H 188/54 H Blood Pressure Mean 94 104 98 Pulse Ox 92 93 95 Oxygen Delivery Method Room Air Room Air Room Air 03/12/25 16:41 03/12/25 16:47 03/12/25 18:06 Temperature 98.8 F Temperature Source Pulse Rate 64 65 Respiratory Rate 19 H 19 H Respiratory Effort Short of Breath Blood Pressure 188/54 H Blood Pressure Mean 98 Pulse Ox 95 100 Oxygen Delivery Method Room Air Positive well nourished and well developed Constitutional Narrative: Nontoxic General Appearance ED: well developed and NAD HEENT HEENT Narrative: Mild dry normocephalic and atraumatic Eyes General Eye ED: Yes normal appearance of both eyes Neck full ROM Chest Wall Chest: Negative for tenderness Resp normal respiratory effort and normal air movement Resp Narrative: No wheezing, no distress. Effort and Inspection: symmetric chest movement; Negative for respiratory distress Cardio regular rate, regular rhythm and no murmurs Peripheral Pulses: pulses 2+ throughout GI normal to inspection, nondistended, normoactive bowel sounds and non-tender Palpation: Negative for guarding or rebound tenderness present Extremity normal to inspection General Extremety ED: Negative for edema or tenderness General Extremity: Negative for edema Neuro oriented x3 and no sensory deficits noted Sensorium / Orientation: awake and alert Skin no rashes or lesions noted and no wounds Sepsis Attestation Sepsis Alert: Yes Date exam was performed: 03/12/25 Time exam was performed: 15:06 MDM MDM MDM Narrative Medical decision making narrative: Interventions / MDM: Differential diagnosis: Community-acquired pneumonia, fever Diagnosis considered but do not suspect: No clinical sepsis. My EKG interpretation: Sinus rate of 64, no ST changes. T wave version leads aVL nonspecific. QTc 474. Imaging independently reviewed and interpreted by myself: 2 view chest x-ray: Infiltrates bilaterally primary right side hilar area. External documents reviewed: N/A Test considered but not ordered:N/A ED course: Patient temp 100.8, respiratory rate 20 on arrival. 2 out of 4 SIRS. Increasing cough with productive sputum. Sepsis labs were ordered secondary to this. Tylenol ordered. Gentle fluids ordered. Blood pressure 182/59. 1530: EKG sinus rhythm white count returned at 14.3. Chest x-ray interpreted by myself concerns for bilateral infiltrates primarily perihilar infiltrate of findings. Will start Rocephin and Zithromax for community-acquired coverage. 1635: Radiologist reporting bilateral interstitial infiltrates. White count 14.3, lactic acid normal 1.1. Normal electrolytes. COVID flu and RSV negative. Patient ambulated by nursing 91 to 89%. She reported no increasing distress. She is above 88%. Considered admission with the patient. However shared decision discussed with the patient. She would like to try treatment at home. Meds to beds with antibiotics. Tylenol for fever control. Discussed continue oral fluids for hydration. Discussed strict return precautions. All questions were answered. Re-evaluation: stable Disposition discussed with patient/family/significant other: Patient and friend Case discussed with consulting clinician: N/A This note was generated with [employer] dictation software. It may contain incorrect words, spelling, and punctuation that were not noted in checking the note before signing. Lab Data Attestation: I reviewed the patient's lab results. Labs: Laboratory Results - last 24 hr 03/12/25 03/12/25 15:13 16:15 WBC 14.3 H RBC 3.96 L Hgb 12.0 Hct 35.5 L MCV 89.6 MCH 30.3 MCHC 33.8 RDW Std Deviation 48.1 H RDW Coeff of Sally 14.6 Plt Count 231 MPV 11.3 Immature Gran % (Auto) 0.400 Neut % (Auto) 78.4 H Lymph % (Auto) 11.2 L [place] % (Auto) 9.7 Eos % (Auto) 0.1 Baso % (Auto) 0.2 Absolute Neuts (auto) 11.2 H Absolute Lymphs (auto) 1.60 Nucleated RBC % 0 PT 13.9 INR 1.1 APTT 31.6 Sodium 135 Potassium 4.4 Chloride 97 L Carbon Dioxide 25.1 Anion Gap 12 BUN 15 Creatinine 0.86 Estim Creat Clear Calc 44.52 L Est GFR (MDRD) Non-Af 66 BUN/Creatinine Ratio 17.8 Glucose 127 H Lactic Acid 1.1 Calcium 8.6 Total Bilirubin 1.03 AST 33 H ALT 19 Alkaline Phosphatase 98 Total Protein 7.6 Albumin 3.9 Globulin 3.7 Albumin/Globulin Ratio 1.0 Urine Color Yellow Urine Clarity Clear Urine pH 8.0 Ur Specific [place] 1.015 Urine Protein 100 H Urine Glucose (UA) Normal Urine Ketones Negative Urine Occult Blood Negative Urine Nitrite Negative Urine Bilirubin Negative Urine Urobilinogen Normal Ur Leukocyte Esterase Negative Urine RBC 0-5 SEEN Urine WBC 0-5 SEEN Ur Squamous Epith Cells 0-5 SEEN Ur Transition Epith Cell 0-5 SEEN Urine Bacteria 0 SEEN Urine Mucus 0 SEEN Radiography Diagnostic Testing: Clinical Impression(s) from Imaging Studies Chest X-Ray 03/12/25 15:02 IMPRESSION: 1. Mild diffuse interstitial opacities, which may represent pneumonitis, pneumonia or pulmonary edema. 2. Mild cardiomegaly. Reading Location: [facility] Discharge Plan Triage Chief Complaint: Shortness of Breath ED Provider: Brian Walsh Dx/Rx/DC Orders Clinical Impression: Community acquired pneumonia, Fever, Cough Instructions: ED Fever Control (Adult), ED Pneumonia (Adult) Prescriptions: New azithromycin 250 mg tablet 250 mg PO DAILY Qty: 4 0RF cefdinir 300 mg capsule 300 mg PO Q12H Qty: 14 0RF No Action mecobalamin (vitamin B12) 500 mcg tablet,chewable PO calcium carb-vitamin D3-vit K2 600 mg-1,000 unit-90 mcg tablet PO cranberry 500 mg capsule 500 mg PO BID Rx Instructions: administer with meals calcitriol 0.25 mcg capsule 0.25 mcg PO QDAY Qty: 90 1RF clopidogrel 75 MG tablet 75 mg PO DAILY Patient Comments: pt states will stop on 08/24/21 for surgery on 09/01/[address] Kam instructions hydroxychloroquine 200 MG tablet 300 mg PO DAILYCM mirtazapine [Remeron SolTab] 15 MG tablet,disintegrating 15 mg PO QHS fluticasone propionate [Allergy Relief (fluticasone)] 15.8 ML spray,suspension 2 spray NS BID omeprazole 20 MG capsule 20 mg PO DAILY Acidophilus 1 EACH capsule 1 ea PO BID zolpidem 5 MG tablet 5 mg PO QHS citalopram 10 MG tablet 10 mg PO DAILY 30 Days Qty: 30 0RF acetaminophen 500 mg Tablet 1,000 mg PO Q6H PRN PRN (Reason: Pain Score 1-3) Qty: 0 0RF Artificial Tears(um-hauh-aglj) 1-0.2-0.2 % Drops 1 drp EACH EYE Q1H PRN PRN (Reason: DRY EYES) Qty: 0 0RF Nando (with collagen) 7-7-1.5 gram Powder In Packet 1 packet PO BIDCM 30 Days Qty: 60 0RF Primary Care Provider: Cleveland Becerra Referrals: Cleveland Becerra MD [Primary Care Provider] - 3-5 Days Activity Restrictions/Additional Instructions: Interstitial pneumonia seen on the chest x-ray. Fever. Do walking you were in any acute distress with no worsening symptoms. Take and finish your antibiotics prescribed. Use Tylenol 1 g every 6 hours as needed for fevers. Drink plenty of fluids for hydration. Follow-up with your doctor in the next few days. You develop any worsening symptoms specially breathing, return to the ED for reevaluation. Print Language: Chinese Disposition Disposition: Home, Self Care Discharge Date/Time: 03/12/25 18:07
[2025-03-12] MEDS: 0.9% Normal Saline (500mL Bag) 500 ML 999 ML IV (15:08)
[2025-03-12] MEDS: Acetaminophen 500 MG Tablet 1000 MG PO (15:08)
[2025-03-12 15:28] LABS: Absolute Neutrophil Count 11.2 X10^3/uL (2.0-7.7); Basophil# 0.03 X10^3/uL; Basophil% 0.2 % (0-1); Eosinophil# 0.02 X10^3/uL; Eosinophils% 0.1 % (0-5); Hematocrit 35.5 % (37-47); Lymphocyte % 11.2 % (19-41); Mean Corp Hgb Conc 33.8 g/dL (32-36); Mean Corpuscular Hgb 30.3 pg (27.0-32.0); Mean Corpuscular Volume 89.6 fL (81-99); Mean Platelet Vol. 11.3 fl (6.2-12.0); Monocyte# 1.39 X10^3/uL; Monocyte% 9.7 % (0-10); NRBC Flagged by Analyzer 0 % (0-5); Neutrophil # 11.19 X10^3/uL (2.7-7.7); Neutrophil % 78.4 % (47-70); Platelet Count 231 K/mm3 (150-450); RBC Distribution Width CV 14.6 % (11.6-14.6); RBC Distribution Width SD 48.1 fl (35.1-43.9); Red Blood Count 3.96 M/mm3 (4.2-5.4); White Blood Count 14.3 K/mm3 (4.4-11.0)
[2025-03-12 15:35] LABS: International Normalized Ratio 1.1; Partial Thromboplast Time 31.6 Seconds (24.1-36.2); Prothrombin Time (Protime)PT. 13.9 SECONDS (11.7-14.9)
[2025-03-12 15:49] LABS: Lactic Acid 1.1 mmol/L (0.0-2.0)
[2025-03-12 15:50] LABS: AST(SGOT) 33 U/L (<=31); Alanine Aminotransfer ALT/SGPT 19 U/L (<=34); Albumin, Serum 3.9 g/dL (3.4-4.8); Alkaline Phosphatase 98 U/L (35-104); Anion Gap 12 (5-15); BUN 15 mg/dL (4-19); BUN/Creat Ratio 17.8 RATIO (10-20); Calcium,Total 8.6 mg/dL (7.6-11.0); Carbon Dioxide 25.1 mmol/L (21.0-32.0); Chloride 97 mmol/L (98-108); Creatinine, Serum 0.86 mg/dL (0.70-1.20); EST Glomerular Filtration Rate 66 (>60); Estimated Creatinine Clearance 44.52 ml/min (50-250); Globulin 3.7 g/dL (2.2-4.2); Glucose 127 mg/dL (70-99); Potassium 4.4 mmol/L (3.3-5.1); Protein, Total 7.6 g/dL (5.9-8.4); Sodium Level 135 mmol/L (133-145); Total Bilirubin 1.03 mg/dL (0.00-1.30)
[2025-03-12] MEDS: Ceftriaxone 1 GM/50 ML BAG IV (16:03)
[2025-03-12] MEDS: Azithromycin 500 MG in 0.9% Normal Saline (250mL Bag) 250 ML 255 MG IV (16:24)
[2025-03-12 16:25] LABS: Bacteria 0 SEEN /hpf (None Seen); Mucous, Urine 0 SEEN /hpf (<or=2+)
[2025-03-12 16:42] LABS: Color, Urine Yellow (Yellow); Glucose, Dipstick Normal (Normal); Ketone-Dipstick Negative (Negative); Leukocyte Esterase-Dipstick Negative /ul (Negative); Nitrite-Dipstick Negative (Negative); Occult Blood-Urine Negative /ul (Negative); Protein-Dipstick 100 mg/dl (Negative); Specific Gravity, Urine 1.015 (1.002-1.030); Urine Bilirubin Dipstick Negative (Negative); Urine Clarity Clear (Clear); Urine Urobilinogen Normal (Normal)
[2025-03-12 17:04] LABS: Red Blood Cells-Urine 0-5 SEEN /hpf (0-5); Squamous Epithelial Cells - UA 0-5 SEEN /hpf (5-10); Transitional Epithelial - Ur 0-5 SEEN /hpf (0-5); White Blood Cells 0-5 SEEN /hpf (0-5)
== END 2025-03-12 18:07 | disposition home or self-care (01) ==
PROVIDERS: Emergency Provider Emergency Medicine; PCP Family Medicine; Visit Provider Emergency Medicine
DX: J18.9 Pneumonia, unspecified organism (principal); Z79.82 Long term (current) use of aspirin; R50.9 Fever, unspecified; R05.9 Cough, unspecified; R06.02 Shortness of breath; I25.10 Atherosclerotic heart disease of native coronary artery without angina pectoris; Z95.5 Presence of coronary angioplasty implant and graft; Z79.02 Long term (current) use of antithrombotics/antiplatelets; F32.A Depression, unspecified; Z79.899 Other long term (current) drug therapy; K21.9 Gastro-esophageal reflux disease without esophagitis; Z96.659 Presence of unspecified artificial knee joint; Z90.81 Acquired absence of spleen; Z90.49 Acquired absence of other specified parts of digestive tract; Z90.710 Acquired absence of both cervix and uterus
CPT/HCPCS: 36415; 71046; 80053; 81001; 83605; 85025; 85610; 85730; 87040; 87077; 87086; 87088; 87186; 87631; 93005; 96361; 96365; 96368; 99284; A4216

== ENCOUNTER → 2025-04-12 | Outpatient (CLI) | payer MEDICARE, OTHER, SELFPAY ==
--- NOTE | 2025-04-12 15:10 | RAD_ITS ---
EXAM: XR Chest, 2 Views CLINICAL INDICATION: PNEUMONIA/SOB TECHNIQUE: Frontal and lateral views of the chest. COMPARISON: No relevant prior studies available. FINDINGS: LUNGS AND PLEURAL SPACES: Unremarkable. No consolidation. No pneumothorax. HEART: Cardiomegaly without overt failure. MEDIASTINUM: Unremarkable. Normal mediastinal contour. BONES/JOINTS: Unremarkable. No acute fracture. RAD/Chest PA and Lateral IMPRESSION: Cardiomegaly without overt failure. Reading Location: [id number]
[2025-04-12 17:54] LABS: Absolute Lymphocyte Count 2.72 X10^3/uL (0.83-4.51); Basophil# 0.03 X10^3/uL; Basophil% 0.3 % (0-1); Eosinophil# 0.04 X10^3/uL; Eosinophils% 0.3 % (0-5); Hematocrit 34.9 % (37-47); Hemoglobin 11.7 g/dL (12.0-15.0); Lymphocyte # 2.72 X10^3/ul (0.83-4.51); Lymphocyte % 23.4 % (19-41); Mean Corp Hgb Conc 33.5 g/dL (32-36); Mean Corpuscular Hgb 30.3 pg (27.0-32.0); Mean Corpuscular Volume 90.4 fL (81-99); Mean Platelet Vol. 11.2 fl (6.2-12.0); Monocyte% 15.5 % (0-10); NRBC Flagged by Analyzer 0 % (0-5); Neutrophil % 60.2 % (47-70); POSITIVE DIFFERENTIAL YES; Platelet Count 240 K/mm3 (150-450); RBC Distribution Width CV 14.8 % (11.6-14.6); RBC Distribution Width SD 49.2 fl (35.1-43.9); Red Blood Count 3.86 M/mm3 (4.2-5.4); White Blood Count 11.6 K/mm3 (4.4-11.0)
[2025-04-12 18:12] LABS: Differential Indicated SCAN CRITERIA MET
[2025-04-12 18:13] LABS: Erythrocyte Sedimentation Rate 17 mm/hr (0-30)
[2025-04-12 19:28] LABS: ALB/GLOB Ratio 0.9 RATIO (0.9-2.4); AST(SGOT) 34 U/L (<=31); Alanine Aminotransfer ALT/SGPT 23 U/L (<=34); Albumin, Serum 3.7 g/dL (3.4-4.8); Alkaline Phosphatase 90 U/L (35-104); Anion Gap 15 (5-15); BUN 26 mg/dL (4-19); BUN/Creat Ratio 23.5 RATIO (10-20); Calcium,Total 8.3 mg/dL (7.6-11.0); Carbon Dioxide 20.6 mmol/L (21.0-32.0); Chloride 92 mmol/L (98-108); Creatinine, Serum 1.11 mg/dL (0.70-1.20); EST Glomerular Filtration Rate 48 (>60); Globulin 3.9 g/dL (2.2-4.2); Glucose 89 mg/dL (70-99); Potassium 4.7 mmol/L (3.3-5.1); Pro- Brain NATRIURETIC PEPTIDE 888 pg/mL (<=1800); Protein, Total 7.7 g/dL (5.9-8.4); Sodium Level 128 mmol/L (133-145)
[2025-04-12 20:24] LABS: Rheumatoid Factor < 10.0 IU/mL (<15)
[2025-04-12 21:09] LABS: Differential Comment SCANNED; Platelet Estimate ADEQUATE (ADEQ)
[2025-04-14 04:07] LABS: QNTFERON TB Mitogen Value > 10.00 IU/mL (.); QNTFERON TB Nil Value 0.08 IU/mL (.); QNTFERON TB1+ Ag Value 0.06 IU/mL (.); QNTFERON TB2+ Ag Value 0.08 IU/mL (.); QNTIFERON TB Positive Criteria Negative (Negative)
[2025-04-16 14:08] LABS: ANA- Speckled Pattern >1:1280 (.); ANA-Nucleolar Pattern >1:1280 (.); Anti-Nuclear Antibody Test Positive (.); PROEL- A/G Ratio 0.8 (0.7-1.7); PROEL- Albumin 3.2 g/dL (2.9-4.4); PROEL- Alpha-1 Globulin 0.4 g/dL (0.0-0.4); PROEL- Alpha-2 Globulin 0.8 g/dL (0.4-1.0); PROEL- Gamma Globulin 1.8 g/dL (0.4-1.8); PROEL- TOTAL PROTEIN 7.2 g/dL (6.0-8.5); PROEL-M-Spike Not Observed g/dL (Not Observed)
== END | disposition home or self-care (01) ==
PROVIDERS: PCP Family Medicine; Referring Provider Family Medicine; Visit Provider Family Medicine
DX: M32.9 Systemic lupus erythematosus, unspecified (principal); J84.89 Other specified interstitial pulmonary diseases
CPT/HCPCS: 36415; 71046; 80053; 83880; 84165; 85025; 85652; 86038; 86140; 86431; 86480

== ENCOUNTER → 2025-04-13 | Outpatient (CLI) | payer MEDICARE, OTHER, SELFPAY ==
--- NOTE | 2025-04-13 10:10 | CT_ITS ---
PROCEDURE: CHEST WITH CONTRAST 04/13/2025 REASON FOR EXAM: INTERSTITIAL FINDINGS ON CXR AND KNOWN SLE. POSS BRONCHIECTASIS TECHNIQUE: CHEST WITH CONTRAST Coronal and Sagittal reconstruction series were provided. CONTRAST: Isovue 3 7 VOLUME: 88 mL One or more dose reduction techniques were used (e.g., Automated exposure control, adjustment of the mA and/or kV according to patient size, use of iterative reconstruction technique). RADIATION DOSE SUMMARY: CTDlvol: 12.3 mGy DLP: 286.28 mGycm COMPARISON: Prior chest radiograph dated April 12, 2025. FINDINGS: Hardware: None Lymph nodes: Calcified subcarinal lymph nodes. Calcified bilateral hilar lymph nodes. Heart and Vasculature: Atherosclerotic calcification of the aortic arch and descending thoracic aorta. Mild coronary artery calcification. Dilatation of the left atrium. Lungs and Airways: There is elevation of the right hemidiaphragm. Calcified granuloma in the right lower lobe. Mild degree of bibasilar atelectasis. Increased interstitial markings in the right upper lobe and lower lobes suggestive of scarring. This is worse on the right side. There is evidence of a 1.4 cm bulla in the left upper lobe. Pleura: Minimal right pleural effusion. Upper Abdomen: Dilatation of the esophagus with fluid within it. Clinical correlation recommended. Diffuse fatty infiltration of the liver. Bones: Degenerative changes of the thoracic spine. CT/Chest WITH Contrast IMPRESSION: Coronary artery calcification (CAC) is is present Calcified subcarinal lymph nodes and bilateral hilar lymph nodes. Elevation of the right hemidiaphragm. Mild degree of scarring in both lower lo bes as well as in the right upper lobe. Minimal right pleural effusion and bibasilar atelectasis. Dilatation of the esophagus. Reading Location: [id number]
== END | disposition home or self-care (01) ==
LOC: CT 10:07
PROVIDERS: PCP Family Medicine; Referring Provider Family Medicine; Visit Provider Family Medicine
DX: J84.89 Other specified interstitial pulmonary diseases (principal); M32.9 Systemic lupus erythematosus, unspecified; R06.02 Shortness of breath
CPT/HCPCS: 71260; Q9967; A4216

== ENCOUNTER → 2025-06-04 | Outpatient (CLI) | payer MEDICARE, OTHER, SELFPAY ==
[2025-06-04 17:51] LABS: Hematocrit 35.1 % (37-47); Hemoglobin 11.4 g/dL (12.0-15.0); Immature Granulocytes Count 0.020 X10^3/uL (0.0-0.0); Mean Corp Hgb Conc 32.5 g/dL (32-36); Mean Corpuscular Volume 92.9 fL (81-99); Mean Platelet Vol. 11.3 fl (6.2-12.0); NRBC Flagged by Analyzer 0 % (0-5); Platelet Count 195 K/mm3 (150-450); RBC Distribution Width CV 15.3 % (11.6-14.6); RBC Distribution Width SD 51.5 fl (35.1-43.9); Red Blood Count 3.78 M/mm3 (4.2-5.4); White Blood Count 8.0 K/mm3 (4.4-11.0)
[2025-06-04 18:22] LABS: AST(SGOT) 97 U/L (<=31); Alanine Aminotransfer ALT/SGPT 64 U/L (<=34); Albumin, Serum 3.8 g/dL (3.4-4.8); Alkaline Phosphatase 79 U/L (35-104); Anion Gap 13 (5-15); BUN 22 mg/dL (4-19); BUN/Creat Ratio 22.9 RATIO (10-20); Calcium,Total 8.1 mg/dL (7.6-11.0); Carbon Dioxide 23.6 mmol/L (21.0-32.0); Chloride 96 mmol/L (98-108); Globulin 3.3 g/dL (2.2-4.2); Glucose 88 mg/dL (70-99); Potassium 4.6 mmol/L (3.3-5.1)
== END | disposition home or self-care (01) ==
LOC: MFPLAB 14:08
PROVIDERS: PCP Family Medicine; Visit Provider Family Medicine
DX: R53.83 Other fatigue (principal)
CPT/HCPCS: 36415; 80053; 84443; 85025

== ENCOUNTER → 2025-06-11 | Outpatient (CLI) | payer MEDICARE, OTHER, SELFPAY ==
[2025-06-11 18:03] LABS: Hematocrit 36.3 % (37-47); Hemoglobin 11.8 g/dL (12.0-15.0); Immature Granulocytes Count 0.030 X10^3/uL (0.0-0.0); Mean Corp Hgb Conc 32.5 g/dL (32-36); Mean Corpuscular Volume 92.4 fL (81-99); Mean Platelet Vol. 11.0 fl (6.2-12.0); NRBC Flagged by Analyzer 0 % (0-5); Platelet Count 196 K/mm3 (150-450); RBC Distribution Width CV 15.6 % (11.6-14.6); RBC Distribution Width SD 52.2 fl (35.1-43.9); Red Blood Count 3.93 M/mm3 (4.2-5.4); White Blood Count 7.5 K/mm3 (4.4-11.0)
[2025-06-11 19:37] LABS: AST(SGOT) 338 U/L (<=31); Alanine Aminotransfer ALT/SGPT 355 U/L (<=34); Albumin, Serum 3.6 g/dL (3.4-4.8); Alkaline Phosphatase 82 U/L (35-104); Anion Gap 16 (5-15); BUN 20 mg/dL (4-19); BUN/Creat Ratio 21.6 RATIO (10-20); Calcium,Total 7.3 mg/dL (7.6-11.0); Carbon Dioxide 19.7 mmol/L (21.0-32.0); Chloride 93 mmol/L (98-108); Globulin 3.4 g/dL (2.2-4.2); Glucose 138 mg/dL (70-99); Potassium 4.3 mmol/L (3.3-5.1); Troponin T High Sensitivity 32 ng/L (<=14)
== END | disposition home or self-care (01) ==
LOC: MFPLAB 17:01
PROVIDERS: PCP Family Medicine; Visit Provider Family Medicine
DX: R06.02 Shortness of breath (principal)
CPT/HCPCS: 36415; 80053; 84484; 85025

== ENCOUNTER 2025-06-12 21:29 | Emergency (ER) | payer MEDICARE, OTHER, SELFPAY ==
[2025-06-12 21:31] VITALS: BP 100/82; PULSE 125; RESP 29; TEMP 35.9; O2SAT 84; BMI 31.0
--- NOTE | 2025-06-12 21:40 | EKG12_ITS ---
Test Reason : DYSRHYTHMIA Blood Pressure : */* mmHG Vent. Rate : 117 BPM Atrial Rate : * BPM P-R Int : * ms QRS Dur : 130 ms QT Int : 358 ms P-R-T Axes : * -71 97 degrees QTcB Int : 499 ms Atrial fibrillation with rapid ventricular response Left axis deviation Non-specific intra-ventricular conduction block Minimal voltage criteria for LVH, may be normal variant ( Idris product ) Possible Lateral infarct , age undetermined Abnormal ECG Confirmed by HERACLIO ALATORRE ([id number]), website/blog editor BRENDA LOPEZ ([id number]) on 06/13/2025 1:49:59 PM Referred By: TL Confirmed By: HERACLIO ALATORRE
--- NOTE | 2025-06-12 21:53 | EX.ED.DYSGE1 ---
HPI <Dr. Brian Walsh DO - Last Filed: 06/13/25 23:01> History of Present Illness Chief Complaint: Hypotension Informant: family Narrative Narrative: Brought in by EMS for not feeling well. Symptoms started yesterday. Per daughter taken to PCP by patient's boyfriend. She reports she was tachycardic in the office she started on metoprolol. Per daughter had issues with metoprolol in the past causing worsening symptom including syncope. She had no syncopal episode. Patient history of coronary stent years ago. Family was with her throughout the day she clinically was worsening she was cyanotic EMS was contacted as patient became more anxious per daughter. Blood pressure in the 80s she was tachycardiac she was brought to the ED. She denied chest pains or abdominal pain. Started having diarrhea today. No vomiting. [facility] <Dr. Brian Walsh DO - Last Filed: 06/13/25 23:01> [facility] Medical History Hypoparathyroidism DVT (deep venous thrombosis) Encounter for screening for COVID-19 Wears hearing aid Wears glasses Wears dentures Depression Ambulates with cane Lupus Gastric reflux Non-smoker History of echocardiogram History of stress test History of rectocele Home Medications ?Medication ?Instructions ?Recorded ?Last Taken ?Type clopidogrel 75 mg tablet 75 mg PO DAILY blood thinner 06/04/17 07/02/22 History fluticasone propionate 50 2 spray NS BID congestion 06/04/17 07/02/22 History mcg/actuation nasal spray,suspension (Allergy Relief (fluticasone)) hydroxychloroquine 200 mg tablet 300 mg PO DAILYCM lupus 06/04/17 07/02/22 History mirtazapine 15 mg disintegrating 15 mg PO QHS depression 06/04/17 07/02/22 History tablet (Remeron SolTab) Lactobacillus acidophilus 1 ea PO BID probiotic 06/27/17 07/02/22 History (Acidophilus capsule) omeprazole 20 mg capsule,delayed 20 mg PO DAILY GERD 06/27/17 07/03/22 History release zolpidem 5 mg tablet 5 mg PO QHS sleep 06/27/17 07/02/22 History citalopram 10 mg tablet 10 mg PO DAILY depression 30 days 09/09/21 07/03/22 Rx #30 tabs acetaminophen 500 mg tablet 1,000 mg (2 x 500 mg) PO Q6H PRN 07/13/22 Unknown Rx PRN Pain Score 1-3 #0 tabs arginine 7 gram-glutam 7 1 packet PO BIDCM 30 days #60 ea 07/13/22 Unknown Rx gram-CaHMB 1.5 fwwb-hdsms-ro-min oral pwd pkt (Nando (with collagen)) peg [id number]-[id number] 1 1 drp EACH EYE Q1H PRN PRN DRY 07/13/22 Unknown Rx %-0.2 %-0.2 % eye drops EYES #0 mL (Artificial Tears ([id number])) calcitriol 0.25 mcg capsule 0.25 mcg PO QDAY #90 caps 11/30/24 Unknown Rx calcium 600 mg (as carbonate)-vit tab PO 11/30/24 Unknown History D3 1,000 unit-vitamin K2 90 mcg tab cranberry 500 mg capsule 500 mg PO BID 11/30/24 Unknown History mecobalamin (vitamin B12) 500 mcg mcg PO 11/30/24 Unknown History chewable tablet azithromycin 250 mg tablet 250 mg PO DAILY #4 TABLETS 03/12/25 Unknown Rx cefdinir 300 mg capsule 300 mg PO Q12H #14 caps 03/12/25 Unknown Rx Allergy/AdvReac Type Severity Reaction Status Date / Time codeine AdvReac Other Verified 06/12/25 21:31 Family History no significant family his Surgical History History of bunionectomy of right great toe Hx of total knee arthroplasty History of splenectomy History of coronary artery stent placement History of colonoscopy History of cholecystectomy History of hysterectomy Social History household members: none Smoking Status: Never smoker alcohol intake: never substance use type: does not use ROS <Dr. Brian Walsh DO - Last Filed: 06/13/25 23:01> ROS ED Constitutional Constitutional ED: Denies fever(s) Cardiovascular Cardiovascular: Denies chest pain Respiratory/Chest Respiratory/Chest: Denies cough Gastrointestinal Gastrointestinal: Reports diarrhea and nausea; Denies vomiting Musculoskeletal Musculoskeletal: Denies none Integumentary Denies rash or wounds Neurologic Neurologic: Reports weakness EXAM <Dr. Brian Walsh, DO - Last Filed: 06/13/25 23:01> Physical Exam Const Vital Signs: 06/12/25 23:30 06/13/25 00:00 06/13/25 00:30 Temperature Pulse Rate 111 H 103 H 98 Respiratory Rate 19 H 14 12 Blood Pressure 126/62 H Blood Pressure Mean 83 Pulse Ox Oxygen Delivery Method Oxygen Flow Rate (L/min) 06/13/25 01:00 06/13/25 01:29 06/13/25 02:00 Temperature Pulse Rate 98 90 84 Respiratory Rate 12 11 L 10 L Blood Pressure 98/81 H 93/67 92/41 L Blood Pressure Mean 86 75 58 Pulse Ox 70 Oxygen Delivery Method Nasal Cannula Oxygen Flow Rate (L/min) 10 06/13/25 02:30 06/13/25 02:59 06/13/25 03:30 Temperature Pulse Rate 85 84 80 Respiratory Rate 10 L 10 L 10 L Blood Pressure 92/41 L 97/61 Blood Pressure Mean 58 73 Pulse Ox 58 56 Oxygen Delivery Method High Flow High Flow Oxygen Flow Rate (L/min) 10 10 06/13/25 04:00 06/13/25 05:00 06/13/25 06:00 Temperature Pulse Rate 84 89 86 Respiratory Rate 10 L 10 L 8 L Blood Pressure 96/58 L 89/67 L 99/61 Blood Pressure Mean 70 74 73 Pulse Ox 56 50 48 Oxygen Delivery Method High Flow High Flow Nasal Cannula Oxygen Flow Rate (L/min) 10 10 7 06/13/25 07:00 06/13/25 08:00 06/13/25 09:00 Temperature Pulse Rate 84 107 H 103 H Respiratory Rate 20 H Blood Pressure 85/57 L 93/57 L 88/57 L Blood Pressure Mean 66 69 67 Pulse Ox 54 54 57 Oxygen Delivery Method Nasal Cannula Nasal Cannula Nasal Cannula Oxygen Flow Rate (L/min) 7 7 7 06/13/25 10:00 06/13/25 11:00 06/13/25 12:00 Temperature Pulse Rate 105 H 104 H 101 H Respiratory Rate 8 L 8 L Blood Pressure 84/63 L 84/56 L 86/45 L Blood Pressure Mean 70 65 59 Pulse Ox 58 46 Oxygen Delivery Method Nasal Cannula Oxygen Flow Rate (L/min) 7 06/13/25 12:36 Temperature 94.9 F L Pulse Rate 79 Respiratory Rate 7 L Blood Pressure 84/45 L Blood Pressure Mean 58 Pulse Ox 45 Oxygen Delivery Method Oxygen Flow Rate (L/min) Constitutional Narrative: Nonrebreather there is mottling of the face and extremities HEENT HEENT Narrative: Cyanosis around the lips with a nonrebreather normocephalic and atraumatic Eyes General Eye ED: Yes normal appearance of both eyes Chest Wall inspection of chest normal and palpation of chest normal Resp Resp Narrative: Symmetric breath sounds Cardio Rate: tachycardic Rhythm: abnormal rhythm GI soft to palpation Skin Skin Narrative: Skin mottling <Júnior Montez MD - Last Filed: 06/13/25 12:20> Physical Exam Const Vital Signs: 06/12/25 23:30 06/13/25 00:00 06/13/25 00:30 Temperature Pulse Rate 111 H 103 H 98 Respiratory Rate 19 H 14 12 Blood Pressure 126/62 H Blood Pressure Mean 83 Pulse Ox Oxygen Delivery Method Oxygen Flow Rate (L/min) 06/13/25 01:00 06/13/25 01:29 06/13/25 02:00 Temperature Pulse Rate 98 90 84 Respiratory Rate 12 11 L 10 L Blood Pressure 98/81 H 93/67 92/41 L Blood Pressure Mean 86 75 58 Pulse Ox 70 Oxygen Delivery Method Nasal Cannula Oxygen Flow Rate (L/min) 10 06/13/25 02:30 06/13/25 02:59 06/13/25 03:30 Temperature Pulse Rate 85 84 80 Respiratory Rate 10 L 10 L 10 L Blood Pressure 92/41 L 97/61 Blood Pressure Mean 58 73 Pulse Ox 58 56 Oxygen Delivery Method High Flow High Flow Oxygen Flow Rate (L/min) 10 10 06/13/25 04:00 06/13/25 05:00 06/13/25 06:00 Temperature Pulse Rate 84 89 86 Respiratory Rate 10 L 10 L 8 L Blood Pressure 96/58 L 89/67 L 99/61 Blood Pressure Mean 70 74 73 Pulse Ox 56 50 48 Oxygen Delivery Method High Flow High Flow Nasal Cannula Oxygen Flow Rate (L/min) 10 10 7 06/13/25 07:00 06/13/25 08:00 06/13/25 09:00 Temperature Pulse Rate 84 107 H 103 H Respiratory Rate 20 H Blood Pressure 85/57 L 93/57 L 88/57 L Blood Pressure Mean 66 69 67 Pulse Ox 54 54 57 Oxygen Delivery Method Nasal Cannula Nasal Cannula Nasal Cannula Oxygen Flow Rate (L/min) 7 7 7 06/13/25 10:00 06/13/25 11:00 06/13/25 12:00 Temperature Pulse Rate 105 H 104 H 101 H Respiratory Rate 8 L 8 L Blood Pressure 84/63 L 84/56 L 86/45 L Blood Pressure Mean 70 65 59 Pulse Ox 58 46 Oxygen Delivery Method Nasal Cannula Oxygen Flow Rate (L/min) 7 06/13/25 12:36 Temperature 94.9 F L Pulse Rate 79 Respiratory Rate 7 L Blood Pressure 84/45 L Blood Pressure Mean 58 Pulse Ox 45 Oxygen Delivery Method Oxygen Flow Rate (L/min) MDM <Dr. Brian Walsh, DO - Last Filed: 06/13/25 23:01> MDM MDM Narrative Medical decision making narrative: Interventions / MDM: Differential diagnosis: V. tach, atrial fibrillation, cyanosis, DNR comfort care Diagnosis considered but do not suspect: N/A My EKG interpretation: A-fib rate of 117, no ST changes. Left bundle branch pattern, new compared to EKG February 2025 Imaging independently reviewed and interpreted by myself: N/A External documents reviewed: N/A Test considered but not ordered:N/A ED course: Patient tachycardic on the monitor noted more V. tach concerns he was hypotensive on arrival. Daughter at bedside DURABLE POWER OF PLASTIC ROLLER, patient was cyanotic, nonrebreather. We discussed cardioversion, patient only wants to keep comfortable. Discussed intubation and CPR for which she declines. In record she is also noted DNR comfort care only. EKG was obtained A-fib RVR with new left bundle branch block. There was wide-complex tachycardia with V-V. tach concerns. She is responding to fluids. Initial order for sepsis labs and amiodarone however on return discussion, daughter wants to focus on comfort care only. She is ordered for morphine. EKG did have signs of possible pulsus paradoxus, I performed a bedside ultrasound I did not appreciate any pericardial effusion. Left ventricle appeared to have decreased contractility. She is kept on oxygen, labs were held along with urine and x-ray. Family all in the room currently. 2200: Patient more comfortable after morphine. Focus currently on comfort only, discussed with daughter, patient taken off the monitor she is on a nasal cannula currently. Will continue to monitor for and treat comfort only. Daughter reported patient did not like palliative or hospice care. They have had discussions throughout the day with the patient. 2225: Comfortable with nasal cannula right now noting some cyanosis around the lips. We discussed hospice with daughter, discussed multiple resources available to help patient and family. She is in agreement to initiate hospice consult in the ED. Would continue to monitor comfort and treat as needed. 2240: As needed discomfort medications of morphine and Ativan ordered for nursing use as needed. Hospice contacted by nursing staff. Re-evaluation: stable Disposition discussed with patient/family/significant other: Family Case discussed with consulting clinician: N/A This note was generated with [employer] dictation software. It may contain incorrect words, spelling, and punctuation that were not noted in checking the note before signing. <Júnior Montez MD - Last Filed: 06/13/25 12:20> [facility] Treatment and Re-Evaluation :: Dr. Montez: patient had been endorsed to me by the overnight physician Dr. Ruddy Demarco. Patient was waiting to be evaluated in the morning by hospice. In discussion with the RN, patient will be transferred to the inpatient unit of hospice. <Dr. Brian Walsh DO - Last Filed: 06/13/25 23:01> Critical Care Time Critical Care Time: Yes Critical care time (excluding procedures): 30-74 minutes, Discussing w/Patient &/or Family/Supervisor [employer], Discussing w/Consultants, Arranging Admission or Transfer, Performing Direct Patient Care at Bedside and - (31 minutes) Discharge Plan Triage Chief Complaint: Hypotension ED Provider: Brian Walsh Dx/Rx/DC Orders Clinical Impression: Atrial fibrillation, V tach, Weakness, Cyanosis, Need for comfort care Prescriptions: No Action mecobalamin (vitamin B12) 500 mcg tablet,chewable PO calcium carb-vitamin D3-vit K2 600 mg-1,000 unit-90 mcg tablet PO cranberry 500 mg capsule 500 mg PO BID Rx Instructions: administer with meals calcitriol 0.25 mcg capsule 0.25 mcg PO QDAY Qty: 90 1RF clopidogrel 75 MG tablet 75 mg PO DAILY Patient Comments: pt states will stop on 08/24/21 for surgery on 09/01/[address] Kam instructions hydroxychloroquine 200 MG tablet 300 mg PO DAILYCM mirtazapine [Remeron SolTab] 15 MG tablet,disintegrating 15 mg PO QHS fluticasone propionate [Allergy Relief (fluticasone)] 15.8 ML spray,suspension 2 spray NS BID omeprazole 20 MG capsule 20 mg PO DAILY Acidophilus 1 EACH capsule 1 ea PO BID zolpidem 5 MG tablet 5 mg PO QHS citalopram 10 MG tablet 10 mg PO DAILY 30 Days Qty: 30 0RF acetaminophen 500 mg Tablet 1,000 mg PO Q6H PRN PRN (Reason: Pain Score 1-3) Qty: 0 0RF Artificial Tears(up-icil-xlsn) 1-0.2-0.2 % Drops 1 drp EACH EYE Q1H PRN PRN (Reason: DRY EYES) Qty: 0 0RF Nando (with collagen) 7-7-1.5 gram Powder In Packet 1 packet PO BIDCM 30 Days Qty: 60 0RF azithromycin 250 mg tablet 250 mg PO DAILY Qty: 4 0RF cefdinir 300 mg capsule 300 mg PO Q12H Qty: 14 0RF Primary Care Provider: Roosevelt Plummer Referrals: Roosevelt Plummer MD [Primary Care Provider] - Print Language: Urdu Disposition Disposition: Hospice in Medical Facility Discharge Location: [facility] Discharge Date/Time: 06/13/25 12:39
[2025-06-12 22:00] VITALS: BP 128/85
--- NOTE | 2025-06-12 22:02 | ED.RN ---
This RN heard Pt verbally requesting on arrival to have comfort care only and not to have any invasive measures taken and not to be defibbed. Per family and Dr Jorge quispe at this time to DC vitals and keep pt comfortable.
--- NOTE | 2025-06-12 22:29 | CM.ED ---
Social work Reason for referral: support Referral source: Dr Jillian Walsh asked SW to support patient's family as patient was identified as not wanting intubation and wanting comfort care only. SW went to provide support to patient's family, at which point the room was filled with family supporting each other. SW checked with patient's nurse, Lelo LOPEZ, who stated SW did not necessarily need to enter patient's room as family was supporting each other and was doing very well. SW directed patient's family arriving to patient's room and no further needs identified at this time. Dr Walsh requested imminent hospice consult as this was requested by patient's daughter. [facility] laundry machine operator to refer patient at this time. Maegan Agustin, SHEAR GRINDER OPERATOR HELPER, NUCLEAR POWER REACTOR OPERATOR
[2025-06-12 22:30] VITALS: BP 117/85; PULSE 109; RESP 18
[2025-06-12 23:00] VITALS: BP 101/89; PULSE 109; RESP 18
[2025-06-12 23:30] VITALS: PULSE 111; RESP 19
[2025-06-13] VITALS (18 sets, daily range): BP systolic 84–126; BP diastolic 41–81; PULSE 79–107; RESP 7–20; TEMP 34.9; O2SAT 45–70
--- NOTE | 2025-06-13 02:21 | ED.RN ---
Hospice updated on Pt information and stated that they will be out in the morning to assess.
--- NOTE | 2025-06-13 08:16 | PCA ---
CALLED HOSPICE FOR AN UPDATE, TYLER SAID SHE WILL CALL RIGHT BACK SOON SHE GETS LOGGED IN AN LOOKS UP A FEW THINGS
--- NOTE | 2025-06-13 11:00 | ED.RN ---
report called to [facility]
== END 2025-06-13 12:39 | disposition hospice, inpatient (51) ==
PROVIDERS: Emergency Provider Emergency Medicine; PCP Family Medicine; Visit Provider Emergency Medicine
DX: I95.9 Hypotension, unspecified (principal); I48.91 Unspecified atrial fibrillation; I47.20 Ventricular tachycardia, unspecified; R23.0 Cyanosis; R53.1 Weakness; Z51.5 Encounter for palliative care; L93.2 Other local lupus erythematosus; Z79.899 Other long term (current) drug therapy; K21.9 Gastro-esophageal reflux disease without esophagitis; F32.A Depression, unspecified; Z96.659 Presence of unspecified artificial knee joint; Z90.81 Acquired absence of spleen; Z90.49 Acquired absence of other specified parts of digestive tract; Z90.710 Acquired absence of both cervix and uterus; Z66 Do not resuscitate
CPT/HCPCS: 93005; 96374; 96375; 96376; 99285; A4216; J2405